=== PATIENT | male | born 1955 | race Caucasian/White ===

== ENCOUNTER 2018-12-30 11:15 | Emergency (ER) | payer MEDICARE, OTHER ==
[~2018-12-30] VITALS: Ht 177.8 cm; Wt 65.8 kg
--- NOTE | 2018-12-30 11:36 | ED Neurological Problem ---
General Stated Complaint: SUICIDAL IDEATION Source: patient Exam Limitations: no limitations History of Present Illness Date Seen by Provider: Dec 30, 2018 Time Seen by Provider: 11:34 Initial Comments To ER with reports that he is suicidal. She relates this to being homeless. He was living in [place], he moved here to be away from "those temptations. He is been clean from amphetamines and opiates for 2 months. States he plans to overdose. Timing/Duration: increasing Severity: moderate Associated Symptoms: other (suicidal) Allergies and Home Medications Patient Home Medication List Home Medication List Reviewed: Yes Review of Systems Review of Systems Constitutional: see HPI Eyes: No Symptoms Reported Ears, Nose, Mouth, Throat: no symptoms reported Respiratory: no symptoms reported Cardiovascular: no symptoms reported Genitourinary: no symptoms reported Musculoskeletal: no symptoms reported Skin: no symptoms reported Psychiatric/Neurological: See HPI Physical Exam Vital Signs Vital Signs - First Documented 12/30/18 11:15 Temp 97.8 Pulse 93 Resp 20 B/P (MAP) 148/100 (116) Pulse Ox 100 O2 Delivery Room Air Capillary Refill : Height, Weight, BMI Height: '" Weight: lbs. oz. kg; BMI Method: General Appearance: WD/WN, no apparent distress HEENT: PERRL/EOMI, normal ENT inspection Respiratory: no respiratory distress, no accessory muscle use Cardiovascular: regular rate, rhythm, no murmur Gastrointestinal: normal bowel sounds, non tender, soft Neurologic/Psychiatric: alert, normal mood/affect, oriented x 3 Crainal Nerves: normal hearing, normal speech, PERRL Skin: normal color, warm/dry Progress/Results/Core Measures Results/Orders Lab Results Laboratory Tests Test 12/30/18 11:50 12/30/18 11:57 Range/Units Urine Color YELLOW Urine Clarity CLEAR Urine pH 5 5-9 Urine Specific [place] 1.020 1.016-1.022 Urine Protein NEGATIVE NEGATIVE Urine Glucose (UA) NEGATIVE NEGATIVE Urine Ketones NEGATIVE NEGATIVE Urine Nitrite NEGATIVE NEGATIVE Urine Bilirubin NEGATIVE NEGATIVE Urine Urobilinogen NORMAL NORMAL MG/DL Urine Leukocyte Esterase NEGATIVE NEGATIVE Urine RBC (Auto) NEGATIVE NEGATIVE Urine RBC NONE /HPF Urine WBC NONE /HPF Urine Squamous Epithelial Cells RARE /HPF Urine Crystals NONE /LPF Urine Bacteria NEGATIVE /HPF Urine Casts NONE /LPF Urine Mucus MODERATE H /LPF Urine Culture Indicated NO Urine Opiates Screen NEGATIVE NEGATIVE Urine Oxycodone Screen NEGATIVE NEGATIVE Urine Methadone Screen NEGATIVE NEGATIVE Urine Propoxyphene Screen NEGATIVE NEGATIVE Urine Barbiturates Screen NEGATIVE NEGATIVE Ur Tricyclic Antidepressants Screen NEGATIVE NEGATIVE Urine Phencyclidine Screen NEGATIVE NEGATIVE Urine Amphetamines Screen NEGATIVE NEGATIVE Urine Methamphetamines Screen NEGATIVE NEGATIVE Urine Benzodiazepines Screen NEGATIVE NEGATIVE Urine Cocaine Screen NEGATIVE NEGATIVE Urine Cannabinoids Screen NEGATIVE NEGATIVE White Blood Count 4.6 4.3-11.0 10^3/uL Red Blood Count 4.82 4.35-5.85 10^6/uL Hemoglobin 14.9 13.3-17.7 G/DL Hematocrit 43 40-54 % Mean Corpuscular Volume 89 80-99 FL Mean Corpuscular Hemoglobin 31 25-34 PG Mean Corpuscular Hemoglobin Concent 35 32-36 G/DL Red Cell Distribution Width 12.8 10.0-14.5 % Platelet Count 239 130-400 10^3/uL Mean Platelet Volume 10.7 H 7.4-10.4 FL Neutrophils (%) (Auto) 59 42-75 % Lymphocytes (%) (Auto) 29 12-44 % Monocytes (%) (Auto) 10 0-12 % Eosinophils (%) (Auto) 2 0-10 % Basophils (%) (Auto) 1 0-10 % Neutrophils # (Auto) 2.7 1.8-7.8 X 10^3 Lymphocytes # (Auto) 1.3 1.0-4.0 X 10^3 Monocytes # (Auto) 0.5 0.0-1.0 X 10^3 Eosinophils # (Auto) 0.1 0.0-0.3 10^3/uL Basophils # (Auto) 0.0 0.0-0.1 10^3/uL Sodium Level 133 L 135-145 MMOL/L Potassium Level 4.4 3.6-5.0 MMOL/L Chloride Level 102 98-107 MMOL/L Carbon Dioxide Level 22 21-32 MMOL/L Anion Gap 9 5-14 MMOL/L Blood Urea Nitrogen 13 7-18 MG/DL Creatinine 0.99 0.60-1.30 MG/DL Estimat Glomerular Filtration Rate > 60 BUN/Creatinine Ratio 13 Glucose Level 116 H 70-105 MG/DL Calcium Level 9.1 8.5-10.1 MG/DL Corrected Calcium 8.9 8.5-10.1 MG/DL Total Bilirubin 0.4 0.1-1.0 MG/DL Aspartate Amino Transf (AST/SGOT) 11 5-34 U/L Alanine Aminotransferase (ALT/SGPT) 10 0-55 U/L Alkaline Phosphatase 92 40-136 U/L Total Protein 6.9 6.4-8.2 GM/DL Albumin 4.3 3.2-4.5 GM/DL Salicylates Level < 5.0 L 5.0-20.0 MG/DL Acetaminophen Level < 10 L 10-30 UG/ML Serum Alcohol < 10 <10 MG/DL My Orders Orders - YESY TREVIZO APRN Cbc With Automated Diff (12/30/18 11:29) Comprehensive Metabolic Panel (12/30/18 11:29) Ua Culture If Indicated (12/30/18 11:29) Drug Screen Stat (Urine) (12/30/18 11:29) Ekg Tracing (12/30/18 11:29) Alcohol (12/30/18 11:29) Salicylate (12/30/18 11:29) Acetaminophen (12/30/18 11:29) Vital Signs/I&O 12/30/18 11:15 Temp 97.8 Pulse 93 Resp 20 B/P (MAP) 148/100 (116) Pulse Ox 100 O2 Delivery Room Air Departure Communication (Admissions) 1314-Yoav barnes from [facility] here to screen patient. Impression Primary Impression: Suicidal ideations Disposition: 01 HOME, SELF-CARE Condition: Stable YESY TREVIZO APRN Dec 30, 2018 11:36
[2018-12-30 11:56] LABS: BILIRUBIN,URINE NEGATIVE (NEGATIVE); CLARITY,URINE CLEAR; COLOR,URINE YELLOW; GLUCOSE, URINE (UA) NEGATIVE (NEGATIVE); KETONES,URINE NEGATIVE (NEGATIVE); LEUKOCYTE ESTERASE ,URINE NEGATIVE (NEGATIVE); NITRITE,URINE NEGATIVE (NEGATIVE); PH,URINE 5 (5-9); PROTEIN,URINE NEGATIVE (NEGATIVE); UROBILINOGEN,URINE NORMAL (NORMAL)
[2018-12-30 12:05] LABS: BASOPHILS % (AUTO) 1 % (0-10); EOSINOPHILS # (AUTO) 0.1 10^3/uL (0.0-0.3); EOSINOPHILS % (AUTO) 2 % (0-10); HEMATOCRIT 43 % (40-54); HEMOGLOBIN 14.9 G/DL (13.3-17.7); LYMPHOCYTES # (AUTO) 1.3 X 10^3 (1.0-4.0); LYMPHOCYTES % (AUTO) 29 % (12-44); MEAN CORPUSCULAR HEMOGLOBIN 31 PG (25-34); MEAN CORPUSCULAR HGB CONC 35 G/DL (32-36); MEAN CORPUSCULAR VOLUME 89 FL (80-99); MEAN PLATELET VOLUME 10.7 FL (7.4-10.4); MONOCYTES # (AUTO) 0.5 X 10^3 (0.0-1.0); MONOCYTES % (AUTO) 10 % (0-12); NEUTROPHILS # (AUTO) 2.7 X 10^3 (1.8-7.8); NEUTROPHILS % (AUTO) 59 % (42-75); PLATELET COUNT 239 10^3/uL (130-400); RED CELL DISTRIBUTION WIDTH 12.8 % (10.0-14.5); WHITE BLOOD COUNT 4.6 10^3/uL (4.3-11.0)
[2018-12-30 12:08] LABS: AMPHETAMINE SCREEN, URINE NEGATIVE (NEGATIVE); BARBITURATE SCREEN URINE NEGATIVE (NEGATIVE); BENZODIAZEPINES SCREEN URINE NEGATIVE (NEGATIVE); CANNABINOID SCREEN, URINE NEGATIVE (NEGATIVE); COCAINE SCREEN URINE NEGATIVE (NEGATIVE); METHADONE STAT NEGATIVE (NEGATIVE); METHAMPHETAMINE SCREEN URINE S NEGATIVE (NEGATIVE); OPIATE SCREEN URINE NEGATIVE (NEGATIVE); OXYCODONE STAT NEGATIVE (NEGATIVE); PROPOXYPHENE STAT NEGATIVE (NEGATIVE); TRICYCLIC ANTIDEPRESSANTS SCRE NEGATIVE (NEGATIVE)
[2018-12-30 12:14] LABS: BACTERIA,URINE NEGATIVE /HPF; SQUAMOUS EPITHELIAL CELL,UR RARE /HPF
[2018-12-30 12:27] LABS: ALANINE AMINOTRANSFERASE 10 U/L (0-55); ALBUMIN 4.3 GM/DL (3.2-4.5); ALKALINE PHOSPHATASE 92 U/L (40-136); BILIRUBIN,TOTAL 0.4 MG/DL (0.1-1.0); BUN/CREATININE RATIO 13; CALCIUM 9.1 MG/DL (8.5-10.1); CARBON DIOXIDE 22 MMOL/L (21-32); CHLORIDE 102 MMOL/L (98-107); CREATININE SERUM 0.99 MG/DL (0.60-1.30); GFR ESTIMATED > 60; GLUCOSE 116 MG/DL (70-105); POTASSIUM 4.4 MMOL/L (3.6-5.0); SALICYLATE < 5.0 MG/DL (5.0-20.0); SODIUM 133 MMOL/L (135-145); TOTAL PROTEIN 6.9 GM/DL (6.4-8.2)
[2018-12-30 12:28] LABS: ACETAMINOPHEN < 10 UG/ML (10-30)
--- NOTE | 2018-12-30 12:53 | NUR ---
Screener showed up to screen patient
--- NOTE | 2018-12-30 14:51 | NUR ---
pts vs bp 117/67 P 68 R 20 T 97.8 P 3/10
--- NOTE | 2018-12-30 14:56 | NUR ---
gave pt lunch tray. Pt requested his phone, provider states that was fine. Gave pt phone.
[2018-12-30 15:38] VITALS: BP 122/86
== END 2018-12-30 15:37 ==
LOC: EDUNIT# 11:15 → ER 11:16
DX: R45.851 Suicidal ideations (principal)
CPT/HCPCS: 36415; 80053; 80306; 80320; 80329; 81000; 85025; 93005

== ENCOUNTER 2019-01-04 11:50 | Emergency (ER) | payer MEDICARE ==
[~2019-01-04] VITALS: Ht 177.8 cm; Wt 68.0 kg
--- NOTE | 2019-01-04 12:09 | ED Psychosocial ---
General Chief Complaint: Psych/Social Disorder Stated Complaint: DEPRESSION Source: patient Exam Limitations: no limitations History of Present Illness Date Seen by Provider: Jan 04, 2019 Time Seen by Provider: 12:07 Initial Comments To ER per produced with reports of suicidal. He was seen here on the , transferred to [facility] unit. He states that they did nothing for him other than continue the Wellbutrin and the lithium that he had stopped himself about 2 weeks prior. States he was discharged from there on Saturday the which she felt was too soon. Presents today with recurrence of suicidal thoughts, states he suicidal because he feels like a failure. [place] was [place], moves [place] and then recently moved back here. 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 Timing/Duration: constant, getting worse Severity: moderate Allergies and Home Medications Allergies Coded Allergies: No Known Drug Allergies (Unverified , 01/04/19) Patient Home Medication List Home Medication List Reviewed: Yes Review of Systems Constitutional: see HPI EENTM: see HPI Respiratory: no symptoms reported Cardiovascular: no symptoms reported Genitourinary: no symptoms reported Musculoskeletal: no symptoms reported Skin: no symptoms reported Psychiatric/Neurological: See HPI, Depressed Past Xczcmwb-Ualxwr-Rmgyga Hx Patient Social History Type Used: Cigarettes Recent Foreign Travel: No Contact w/Someone Who Travel: No Past Medical History Psychosocial: Yes Sleep Difficulties, Bipolar, Depression Physical Exam Vital Signs - First Documented 01/04/19 11:50 Temp 97.7 Pulse 88 Resp 16 B/P (MAP) 149/88 (108) Pulse Ox 100 O2 Delivery Room Air Capillary Refill : Height, Weight, BMI Height: 5'10.00" Weight: 145lbs. oz. [id number]; BMI Method:Stated General Appearance: WD/WN, no apparent distress Respiratory: normal breath sounds, no respiratory distress, no accessory muscle use Cardiovascular: regular rate, rhythm, no murmur Gastrointestinal: normal bowel sounds, non tender, soft Neurologic/Psychiatric: alert, normal mood/affect, oriented x 3 Appearance/Memory: appropriate appearance, appropriate insight Behavior/Eye Contact: cooperative, good eye contact Skin: normal color, warm/dry He is clean, pleasant, cooperative and appreciative. Progress/Results/Core Measures Results/Orders Lab Results Laboratory Tests Test 01/04/19 12:03 01/04/19 12:30 Range/Units Urine Color YELLOW Urine Clarity SLIGHTLY CLOUDY Urine pH 5 5-9 Urine Specific [place] 1.025 H 1.016-1.022 Urine Protein 2+ H NEGATIVE Urine Glucose (UA) NEGATIVE NEGATIVE Urine Ketones 2+ H NEGATIVE Urine Nitrite NEGATIVE NEGATIVE Urine Bilirubin NEGATIVE NEGATIVE Urine Urobilinogen NORMAL NORMAL MG/DL Urine Leukocyte Esterase 1+ H NEGATIVE Urine RBC (Auto) 5+ H NEGATIVE Urine RBC NONE /HPF Urine WBC 5-10 H /HPF Urine Crystals NONE /LPF Urine Bacteria MODERATE H /HPF Urine Casts NONE /LPF Urine Mucus MODERATE H /LPF Urine Culture Indicated YES Urine Opiates Screen NEGATIVE NEGATIVE Urine Oxycodone Screen NEGATIVE NEGATIVE Urine Methadone Screen NEGATIVE NEGATIVE Urine Propoxyphene Screen NEGATIVE NEGATIVE Urine Barbiturates Screen NEGATIVE NEGATIVE Ur Tricyclic Antidepressants Screen NEGATIVE NEGATIVE Urine Phencyclidine Screen NEGATIVE NEGATIVE Urine Amphetamines Screen NEGATIVE NEGATIVE Urine Methamphetamines Screen NEGATIVE NEGATIVE Urine Benzodiazepines Screen NEGATIVE NEGATIVE Urine Cocaine Screen NEGATIVE NEGATIVE Urine Cannabinoids Screen NEGATIVE NEGATIVE White Blood Count 7.9 4.3-11.0 10^3/uL Red Blood Count 5.09 4.35-5.85 10^6/uL Hemoglobin 15.6 13.3-17.7 G/DL Hematocrit 45 40-54 % Mean Corpuscular Volume 87 80-99 FL Mean Corpuscular Hemoglobin 31 25-34 PG Mean Corpuscular Hemoglobin Concent 35 32-36 G/DL Red Cell Distribution Width 13.0 10.0-14.5 % Platelet Count 268 130-400 10^3/uL Mean Platelet Volume 10.4 7.4-10.4 FL Neutrophils (%) (Auto) 62 42-75 % Lymphocytes (%) (Auto) 26 12-44 % Monocytes (%) (Auto) 10 0-12 % Eosinophils (%) (Auto) 2 0-10 % Basophils (%) (Auto) 1 0-10 % Neutrophils # (Auto) 4.9 1.8-7.8 X 10^3 Lymphocytes # (Auto) 2.0 1.0-4.0 X 10^3 Monocytes # (Auto) 0.8 0.0-1.0 X 10^3 Eosinophils # (Auto) 0.2 0.0-0.3 10^3/uL Basophils # (Auto) 0.1 0.0-0.1 10^3/uL Sodium Level 137 135-145 MMOL/L Potassium Level 4.2 3.6-5.0 MMOL/L Chloride Level 105 98-107 MMOL/L Carbon Dioxide Level 19 L 21-32 MMOL/L Anion Gap 13 5-14 MMOL/L Blood Urea Nitrogen 21 H 7-18 MG/DL Creatinine 1.00 0.60-1.30 MG/DL Estimat Glomerular Filtration Rate > 60 BUN/Creatinine Ratio 21 Glucose Level 102 70-105 MG/DL Calcium Level 9.2 8.5-10.1 MG/DL Corrected Calcium 8.9 8.5-10.1 MG/DL Total Bilirubin 0.8 0.1-1.0 MG/DL Aspartate Amino Transf (AST/SGOT) 16 5-34 U/L Alanine Aminotransferase (ALT/SGPT) 11 0-55 U/L Alkaline Phosphatase 102 40-136 U/L Total Protein 7.0 6.4-8.2 GM/DL Albumin 4.4 3.2-4.5 GM/DL Salicylates Level < 5.0 L 5.0-20.0 MG/DL Acetaminophen Level < 10 L 10-30 UG/ML Serum Alcohol < 10 <10 MG/DL My Orders Orders - YESY TREVIZO APRN Cbc With Automated Diff (01/04/19 12:01) Comprehensive Metabolic Panel (01/04/19 12:01) Ua Culture If Indicated (01/04/19 12:01) Alcohol (01/04/19 12:01) Ekg Tracing (01/04/19 12:01) Drug Screen Stat (Urine) (01/04/19 12:01) Acetaminophen (01/04/19 12:01) Salicylate (01/04/19 12:01) General/Regular (01/04/19 Lunch) Urine Culture (01/04/19 12:03) Vital Signs/I&O 01/04/19 11:50 Temp 97.7 Pulse 88 Resp 16 B/P (MAP) 149/88 (108) Pulse Ox 100 O2 Delivery Room Air Departure Communication (Admissions) [id number] [facility]--no beds [facility]--no beds [facility] beds [facility]no beds [facility] could transport pt to [facility] in [place], a homeless skilled nursing. Pt is not interested [facility] in has no beds. [facility] has no beds in . [facility] in has no beds. [facility] has no beds. [facility] in [facility] has beds will fax info to them at [phone] 1448-[facility] has accepted pt. RN called back to inform that physician had accepted. They do not require me to give report to him/her. They do require RN to call whe hes left here however. Pt agreeable to go and informed that he would be self pay when he got there due to being out of medicare days. Pt is still agreeable to go, this does not change his plan. Impression Primary Impression: Suicidal ideations Disposition: 65 XFER TO PSYCH HOSP/UNIT Condition: Stable Departure-Patient Inst. Decision time for Depature: 13:22 Referrals: NO,LOCAL PHYSICIAN (PCP/Family) Primary Care Physician Patient Instructions: Depression YESY TREVIZO APRN Jan 04, 2019 12:09
[2019-01-04 12:15] LABS: BILIRUBIN,URINE NEGATIVE (NEGATIVE); CLARITY,URINE SLIGHTLY CLOUDY; COLOR,URINE YELLOW; GLUCOSE, URINE (UA) NEGATIVE (NEGATIVE); KETONES,URINE 2+ (NEGATIVE); LEUKOCYTE ESTERASE ,URINE 1+ (NEGATIVE); NITRITE,URINE NEGATIVE (NEGATIVE); PH,URINE 5 (5-9); PROTEIN,URINE 2+ (NEGATIVE); UROBILINOGEN,URINE NORMAL (NORMAL)
[2019-01-04 12:48] LABS: BACTERIA,URINE MODERATE /HPF
--- NOTE | 2019-01-04 12:50 | NUR ---
diet ordered at this time
[2019-01-04 12:55] LABS: BASOPHILS # (AUTO) 0.1 10^3/uL (0.0-0.1); BASOPHILS % (AUTO) 1 % (0-10); EOSINOPHILS # (AUTO) 0.2 10^3/uL (0.0-0.3); EOSINOPHILS % (AUTO) 2 % (0-10); HEMATOCRIT 45 % (40-54); HEMOGLOBIN 15.6 G/DL (13.3-17.7); LYMPHOCYTES % (AUTO) 26 % (12-44); MEAN CORPUSCULAR HEMOGLOBIN 31 PG (25-34); MEAN CORPUSCULAR HGB CONC 35 G/DL (32-36); MEAN CORPUSCULAR VOLUME 87 FL (80-99); MEAN PLATELET VOLUME 10.4 FL (7.4-10.4); MONOCYTES # (AUTO) 0.8 X 10^3 (0.0-1.0); MONOCYTES % (AUTO) 10 % (0-12); NEUTROPHILS # (AUTO) 4.9 X 10^3 (1.8-7.8); NEUTROPHILS % (AUTO) 62 % (42-75); PLATELET COUNT 268 10^3/uL (130-400); WHITE BLOOD COUNT 7.9 10^3/uL (4.3-11.0)
[2019-01-04 13:18] LABS: AMPHETAMINE SCREEN, URINE NEGATIVE (NEGATIVE); BARBITURATE SCREEN URINE NEGATIVE (NEGATIVE); BENZODIAZEPINES SCREEN URINE NEGATIVE (NEGATIVE); CANNABINOID SCREEN, URINE NEGATIVE (NEGATIVE); COCAINE SCREEN URINE NEGATIVE (NEGATIVE); METHADONE STAT NEGATIVE (NEGATIVE); METHAMPHETAMINE SCREEN URINE S NEGATIVE (NEGATIVE); OPIATE SCREEN URINE NEGATIVE (NEGATIVE); OXYCODONE STAT NEGATIVE (NEGATIVE); PROPOXYPHENE STAT NEGATIVE (NEGATIVE); TRICYCLIC ANTIDEPRESSANTS SCRE NEGATIVE (NEGATIVE)
[2019-01-04 13:18] LABS: ALANINE AMINOTRANSFERASE 11 U/L (0-55); ALBUMIN 4.4 GM/DL (3.2-4.5); ALKALINE PHOSPHATASE 102 U/L (40-136); BILIRUBIN,TOTAL 0.8 MG/DL (0.1-1.0); BUN/CREATININE RATIO 21; CALCIUM 9.2 MG/DL (8.5-10.1); CARBON DIOXIDE 19 MMOL/L (21-32); CHLORIDE 105 MMOL/L (98-107); GFR ESTIMATED > 60; GLUCOSE 102 MG/DL (70-105); POTASSIUM 4.2 MMOL/L (3.6-5.0); SALICYLATE < 5.0 MG/DL (5.0-20.0); SODIUM 137 MMOL/L (135-145)
[2019-01-04 13:21] LABS: ACETAMINOPHEN < 10 UG/ML (10-30)
[2019-01-04 15:25] VITALS: BP 149/88
--- NOTE | 2019-01-04 15:28 | NUR ---
Report given to Janie at [facility].
== END 2019-01-04 15:25 ==
LOC: EDUNIT# 11:50 → ER 11:50
DX: R45.851 Suicidal ideations (principal); F31.9 Bipolar disorder, unspecified
CPT/HCPCS: 36415; 80053; 80306; 80320; 80329; 81000; 85025; 87088; 93005

== ENCOUNTER 2019-01-22 05:15 | Emergency (ER) | payer MEDICARE ==
[~2019-01-22] VITALS: Ht 177.8 cm; Wt 68.0 kg
[2019-01-22 05:57] LABS: BILIRUBIN,URINE NEGATIVE (NEGATIVE); CLARITY,URINE CLEAR; COLOR,URINE YELLOW; GLUCOSE, URINE (UA) NEGATIVE (NEGATIVE); KETONES,URINE NEGATIVE (NEGATIVE); LEUKOCYTE ESTERASE ,URINE NEGATIVE (NEGATIVE); NITRITE,URINE NEGATIVE (NEGATIVE); PH,URINE 7 (5-9); PROTEIN,URINE NEGATIVE (NEGATIVE); UROBILINOGEN,URINE NORMAL (NORMAL)
[2019-01-22 05:57] LABS: BASOPHILS % (AUTO) 1 % (0-10); EOSINOPHILS # (AUTO) 0.3 10^3/uL (0.0-0.3); EOSINOPHILS % (AUTO) 5 % (0-10); HEMATOCRIT 43 % (40-54); LYMPHOCYTES # (AUTO) 2.5 X 10^3 (1.0-4.0); LYMPHOCYTES % (AUTO) 41 % (12-44); MEAN CORPUSCULAR HEMOGLOBIN 30 PG (25-34); MEAN CORPUSCULAR HGB CONC 35 G/DL (32-36); MEAN CORPUSCULAR VOLUME 87 FL (80-99); MEAN PLATELET VOLUME 10.5 FL (7.4-10.4); MONOCYTES # (AUTO) 0.7 X 10^3 (0.0-1.0); MONOCYTES % (AUTO) 11 % (0-12); NEUTROPHILS # (AUTO) 2.6 X 10^3 (1.8-7.8); NEUTROPHILS % (AUTO) 42 % (42-75); PLATELET COUNT 296 10^3/uL (130-400); RED CELL DISTRIBUTION WIDTH 13.8 % (10.0-14.5); WHITE BLOOD COUNT 6.3 10^3/uL (4.3-11.0)
[2019-01-22 06:09] LABS: BACTERIA,URINE NEGATIVE /HPF; SQUAMOUS EPITHELIAL CELL,UR RARE /HPF
[2019-01-22 06:19] LABS: AMPHETAMINE SCREEN, URINE NEGATIVE (NEGATIVE); BARBITURATE SCREEN URINE NEGATIVE (NEGATIVE); BENZODIAZEPINES SCREEN URINE NEGATIVE (NEGATIVE); CANNABINOID SCREEN, URINE NEGATIVE (NEGATIVE); COCAINE SCREEN URINE NEGATIVE (NEGATIVE); METHADONE STAT NEGATIVE (NEGATIVE); METHAMPHETAMINE SCREEN URINE S NEGATIVE (NEGATIVE); OPIATE SCREEN URINE NEGATIVE (NEGATIVE); OXYCODONE STAT NEGATIVE (NEGATIVE); PROPOXYPHENE STAT NEGATIVE (NEGATIVE); TRICYCLIC ANTIDEPRESSANTS SCRE NEGATIVE (NEGATIVE)
[2019-01-22 06:30] LABS: ALANINE AMINOTRANSFERASE 10 U/L (0-55); ALBUMIN 4.2 GM/DL (3.2-4.5); ALKALINE PHOSPHATASE 84 U/L (40-136); BILIRUBIN,TOTAL 0.5 MG/DL (0.1-1.0); BUN/CREATININE RATIO 11; CALCIUM 9.2 MG/DL (8.5-10.1); CARBON DIOXIDE 21 MMOL/L (21-32); CHLORIDE 108 MMOL/L (98-107); CREATININE SERUM 0.81 MG/DL (0.60-1.30); GFR ESTIMATED > 60; GLUCOSE 104 MG/DL (70-105); POTASSIUM 3.9 MMOL/L (3.6-5.0); SALICYLATE < 5.0 MG/DL (5.0-20.0); SODIUM 141 MMOL/L (135-145); TOTAL PROTEIN 6.8 GM/DL (6.4-8.2)
[2019-01-22 06:33] LABS: ACETAMINOPHEN < 10 UG/ML (10-30)
--- NOTE | 2019-01-22 06:46 | ED Psychosocial ---
General Chief Complaint: Psych/Social Disorder Stated Complaint: SUICIDAL,WANTS TO HARM SELF Nursing Triage Note: STATES FEELS LIKE A FAILURE AND DOESNT WANT TO GO ON. Source: patient Exam Limitations: no limitations History of Present Illness Date Seen by Provider: Jan 22, 2019 Time Seen by Provider: 05:49 Initial Comments This 63 year old man presents to the ER with complaints of suicidal ideation. He has a history of depression, anxiety, and substance abuse. He reports no use of alcohol or drugs in the past 6 months. He was seen at this facility December 30 and admitted to the [facility] behavioral health unit in [place], [place]. He returned to this facility January 04 stating nothing was really done for him in [place] except restarting his medications. On January 04 he was transferred to [facility] in [place], [place]. Patient was treated there and dismissed. Since he left [place] he has not been compliant with his medications. He has access to them but has elected not to take them. He cannot give a good reason for why he chooses to do so. He is living in [facility] presently and states he temporarily has financial resources to support this. At present he states he feels hopeless, and laminated, and alone. He feels like a failure and therefore is having suicidal thoughts. He has been established with [facility] and states he is dissatisfied with the services he receives there. He states he does not get any one-on-one consultation. When asked what he would do today if he were discharged from the hospital, he states "I would probably call one of the heroin girls". Patient states he has been contacted by acquaintances who have access to heroin. He was invited to meet back up with them but declined. Although he had an opportunity to access heroin, he elected not to. His plan in relation to suicidal ideation would be heroin overdose. He states he elected not to connect with these acquaintances because he has a daughter who lives in [place] and he does not want to end his life in this fashion and have the impact on her. His current medications are lithium and Wellbutrin. He took one dose of those yesterday which was the first time he had taken his medications since he lapsed in his medication therapy over the past week. Allergies and Home Medications Allergies Coded Allergies: No Known Drug Allergies (Unverified , 01/04/19) Patient Home Medication List Home Medication List Reviewed: Yes Review of Systems Constitutional: no symptoms reported EENTM: no symptoms reported Respiratory: no symptoms reported Cardiovascular: no symptoms reported Gastrointestinal: no symptoms reported Genitourinary: no symptoms reported Musculoskeletal: no symptoms reported Skin: no symptoms reported Psychiatric/Neurological: See HPI Past Riwsull-Ddqlqb-Iinyai Hx Past Med/Social Hx: Reviewed Nursing Past Med/Soc Hx Patient Social History Alcohol Use: Denies Use Recreational Drug Use: Yes ("I USED TO SMOKE HEROIN AND METH") Drug of Choice: 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 Type Used: Cigarettes Recent Foreign Travel: No Contact w/Someone Who Travel: No Recent Infectious Disease Expo: No Recent Hopitalizations: No ([facility]NA FOR PSYCH) Physical Abuse: No Sexual Abuse: No Mistreated: No Fear: No Seasonal Allergies Seasonal Allergies: Yes Past Medical History Surgeries: Yes Prostatectomy Respiratory: No Cardiac: No Neurological: No Genitourinary: Yes Prostate Problems Gastrointestinal: No (INGUINAL HERNIA) Musculoskeletal: No Endocrine: No HEENT: No Cancer: No Psychosocial: Yes ("BIPOLAR TYPE 2, SCHIZOID NO DILUSIONS") Sleep Difficulties, Anxiety, Bipolar, Depression Nursing Suicide Risk Notes: SISTER HAS SHUNNED HIM. FEELS LIKE A FAILURE AND DOENST WANT TO GO ON. HAS NOT BEEN TAKING MEDICATIONS REGULARLY. Integumentary: No Blood Disorders: No Physical Exam Vital Signs - First Documented 01/22/19 05:30 Temp 36.4 Pulse 64 Resp 18 B/P (MAP) 123/81 (95) Pulse Ox 98 Capillary Refill : Less Than 3 Seconds Height, Weight, BMI Height: 5'10.00" Weight: 150lbs. oz. [id number]; 21.00 BMI Method:Stated General Appearance: WD/WN, no apparent distress HEENT: PERRL/EOMI, normal ENT inspection, pharynx normal Neck: normal inspection Respiratory: lungs clear, normal breath sounds, no respiratory distress Cardiovascular: regular rate, rhythm, no edema, no murmur Gastrointestinal: normal bowel sounds, non tender, soft Extremities: normal inspection, no pedal edema Neurologic/Psychiatric: manager clinical services II-XII nml as tested, no motor/sensory deficits, alert, oriented x 3, other (normal affect, states suicidal ideation) Appearance/Memory: appropriate appearance Behavior/Eye Contact: cooperative, good eye contact, normal speech Skin: normal color, warm/dry Progress/Results/Core Measures Results/Orders Lab Results Laboratory Tests Test 01/22/19 05:29 01/22/19 05:40 Range/Units Urine Color YELLOW Urine Clarity CLEAR Urine pH 7 5-9 Urine Specific [place] 1.010 L 1.016-1.022 Urine Protein NEGATIVE NEGATIVE Urine Glucose (UA) NEGATIVE NEGATIVE Urine Ketones NEGATIVE NEGATIVE Urine Nitrite NEGATIVE NEGATIVE Urine Bilirubin NEGATIVE NEGATIVE Urine Urobilinogen NORMAL NORMAL MG/DL Urine Leukocyte Esterase NEGATIVE NEGATIVE Urine RBC (Auto) NEGATIVE NEGATIVE Urine RBC NONE /HPF Urine WBC NONE /HPF Urine Squamous Epithelial Cells RARE /HPF Urine Crystals NONE /LPF Urine Bacteria NEGATIVE /HPF Urine Casts NONE /LPF Urine Mucus NEGATIVE /LPF Urine Culture Indicated NO Urine Opiates Screen NEGATIVE NEGATIVE Urine Oxycodone Screen NEGATIVE NEGATIVE Urine Methadone Screen NEGATIVE NEGATIVE Urine Propoxyphene Screen NEGATIVE NEGATIVE Urine Barbiturates Screen NEGATIVE NEGATIVE Ur Tricyclic Antidepressants Screen NEGATIVE NEGATIVE Urine Phencyclidine Screen NEGATIVE NEGATIVE Urine Amphetamines Screen NEGATIVE NEGATIVE Urine Methamphetamines Screen NEGATIVE NEGATIVE Urine Benzodiazepines Screen NEGATIVE NEGATIVE Urine Cocaine Screen NEGATIVE NEGATIVE Urine Cannabinoids Screen NEGATIVE NEGATIVE White Blood Count 6.3 4.3-11.0 10^3/uL Red Blood Count 4.95 4.35-5.85 10^6/uL Hemoglobin 15.0 13.3-17.7 G/DL Hematocrit 43 40-54 % Mean Corpuscular Volume 87 80-99 FL Mean Corpuscular Hemoglobin 30 25-34 PG Mean Corpuscular Hemoglobin Concent 35 32-36 G/DL Red Cell Distribution Width 13.8 10.0-14.5 % Platelet Count 296 130-400 10^3/uL Mean Platelet Volume 10.5 H 7.4-10.4 FL Neutrophils (%) (Auto) 42 42-75 % Lymphocytes (%) (Auto) 41 12-44 % Monocytes (%) (Auto) 11 0-12 % Eosinophils (%) (Auto) 5 0-10 % Basophils (%) (Auto) 1 0-10 % Neutrophils # (Auto) 2.6 1.8-7.8 X 10^3 Lymphocytes # (Auto) 2.5 1.0-4.0 X 10^3 Monocytes # (Auto) 0.7 0.0-1.0 X 10^3 Eosinophils # (Auto) 0.3 0.0-0.3 10^3/uL Basophils # (Auto) 0.0 0.0-0.1 10^3/uL Sodium Level 141 135-145 MMOL/L Potassium Level 3.9 3.6-5.0 MMOL/L Chloride Level 108 H 98-107 MMOL/L Carbon Dioxide Level 21 21-32 MMOL/L Anion Gap 12 5-14 MMOL/L Blood Urea Nitrogen 9 7-18 MG/DL Creatinine 0.81 0.60-1.30 MG/DL Estimat Glomerular Filtration Rate > 60 BUN/Creatinine Ratio 11 Glucose Level 104 70-105 MG/DL Calcium Level 9.2 8.5-10.1 MG/DL Corrected Calcium 9.0 8.5-10.1 MG/DL Total Bilirubin 0.5 0.1-1.0 MG/DL Aspartate Amino Transf (AST/SGOT) 17 5-34 U/L Alanine Aminotransferase (ALT/SGPT) 10 0-55 U/L Alkaline Phosphatase 84 40-136 U/L Total Protein 6.8 6.4-8.2 GM/DL Albumin 4.2 3.2-4.5 GM/DL TSH Mcclelland Testing 2.11 0.35-4.94 UIU/ML Salicylates Level < 5.0 L 5.0-20.0 MG/DL Acetaminophen Level < 10 L 10-30 UG/ML Serum Alcohol < 10 <10 MG/DL My Orders Orders - HE BUTTS MD [place] Level (01/22/19 06:26) General/Regular (01/22/19 Breakfast) Vital Signs/I&O 01/22/19 01/22/19 05:30 11:03 Temp 36.4 36.4 Pulse 64 64 Resp 18 18 B/P (MAP) 123/81 (95) 123/81 (95) Pulse Ox 98 98 Blood Pressure Mean: 95 Progress Progress Note #1: Time: 07:00 Progress Note Lab screening was unremarkable. Patient appears to be manipulative of the behavioral health system in that he makes demands, does not follow through with recommendations were refuses services, is noncompliant with his medications, and then complains that his offered services are in adequate. I discussed the case with Willa, the [facility] screener. She will defer further discussion to Param Alvarez. Given patient's history and noncompliance, I'm not sure another inpatient admission would be the most productive therapy option for him. I will discuss this further with Mr. Alvarez when he returns my call and obtain his expert opinion. Progress Note #2: Time: 07:37 Progress Note I discussed the case with Param Alvarez with [facility]. We had developed a plan for intensive outpatient follow-up to try to boost patients out patient services. Inpatient admission was not felt the best option for this patient as he has failed inpatient admission twice in the past month and much of his problem is refusal to be compliant with treatment plans. Mr. Alvarez's plan was to have family independence case manager work with the patient to develop a more suitable treatment plan. However, when I discussed this plan with the patient, he stated he intended to commit suicide by overdose today if he were discharged. He reported he can probably accomplish this within 2 hours. He asserts he needs to be admitted somewhere with security for his safety. Progress Note #3: Time: 07:53 Progress Note Have discussed this case with Dr. Rosario and the screener at [facility]. They will review his chart and make a determination on his eligibility. Progress Note #4: Time: 08:35 Progress Note The [facility] unit declined admission. They're familiar with the patient, and they do not believe there facility is the best resource for him. They suggested an adult psychiatric unit due to history of substance abuse and manipulative behavior rather than a senior behavioral health unit. I have left messages at [facility] in [place] and [facility] in [place]. Departure Impression Primary Impression: Suicidal ideation Disposition: 02 XFER SHT-TRM HOSP Condition: Stable Transfer Transfer Progress Notes Patient was transported to [facility] Dr. Germain was the accepting physician. Transfer Time: 11:05 Transfer Facility: [facility] in [place], [place] Method of Transfer: Departure-Patient Inst. Referrals: NO,LOCAL PHYSICIAN (PCP/Family) Primary Care Physician HE BUTTS MD Jan 22, 2019 06:46
[2019-01-22 06:57] LABS: TSH (THYROID ANALYZER) 2.11 UIU/ML (0.35-4.94)
--- NOTE | 2019-01-22 07:30 | NUR ---
HAD ARRANGED CLOSE OUTPATIENT CARE FOR PT, PT STATES WILL GO HOME AND OVERDOSE IF HE IS SENT HOME
--- NOTE | 2019-01-22 08:01 | NUR ---
CHART FAXED TO [facility] REQUESTED
--- NOTE | 2019-01-22 08:39 | NUR ---
PT INFORMATION FAXED TO [facility]
--- NOTE | 2019-01-22 09:23 | NUR ---
[facility]ILIP[facility] WILL TRANSPORT PT TO [place]
--- NOTE | 2019-01-22 10:00 | NUR ---
REPORT TO BOAZ HERNANDEZ AT [facility]
[2019-01-22 11:03] VITALS: BP 123/81
== END 2019-01-22 11:03 ==
LOC: EDUNIT# 05:15 → ER 05:17
DX: R45.851 Suicidal ideations (principal); F32.9 Major depressive disorder, single episode, unspecified; F41.9 Anxiety disorder, unspecified; F20.9 Schizophrenia, unspecified
CPT/HCPCS: 36415; 80053; 80178; 80306; 80320; 80329; 81000; 84443; 85025; 93005

== ENCOUNTER 2019-02-19 14:58 | Emergency (ER) | payer MEDICARE ==
[~2019-02-19] VITALS: Ht 177.8 cm; Wt 68.0 kg
--- NOTE | 2019-02-19 15:48 | ED Psychosocial ---
General Chief Complaint: Psych/Social Disorder Stated Complaint: DEPRESSION Nursing Triage Note: States that he has been depressed, paranoid, and anxious for the last 2 months, and increasing due to influences of others and their narcotic use. Does have thoughts of self harm and does have a plan to carry it out. Has been trying to reestablish with [facility] but has been unable at this point Source: patient Exam Limitations: no limitations History of Present Illness Date Seen by Provider: Feb 19, 2019 Time Seen by Provider: 15:30 Initial Comments The patient presents to ER by private conveyance with chief complaint of depression worsening over the past 2-3 weeks. He says is having a hard time battling it. He saw Dr. lima at [facility] and was started on lithium very paranoid about his has not started taking it. He has a history of depression and suicidal ideation. Presently he is having suicidal ideation with plan to overdose on heroin. He would like to go inpatient. He has been inpatient psych at [place], [place] before. He has not done anything to attempt to take his own life today. He says there is no specific instigating incident. He recently moved to the area to be called to the family in the past 2 years. He says he last used methamphetamines 6 months ago and heroin recently. Used to smoke pot regularly. He does still smoke cigarettes 1 pack a day. He denies having any pain shortness of breath nausea vomiting fevers chills cough shortness of breath diarrhea or constipation. Allergies and Home Medications Allergies Coded Allergies: No Known Drug Allergies (Unverified , 01/04/19) Patient Home Medication List Home Medication List Reviewed: Yes Review of Systems Constitutional: No chills, No fever, No malaise EENTM: No ear discharge, No hearing loss Respiratory: No cough, No dyspnea on exertion Cardiovascular: No chest pain, No palpitations Gastrointestinal: No abdominal pain, No nausea Genitourinary: No discharge, No dysuria Musculoskeletal: No back pain, No gout Past Oaeygxo-Oiedtw-Bignfv Hx Patient Social History Alcohol Use: Denies Use Recreational Drug Use: Yes Drug of Choice: 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; Heroin, MJ Smoking Status: Current Everyday Smoker Type Used: Cigarettes (1 ppd) 2nd Hand Smoke Exposure: No Recent Foreign Travel: No Contact w/Someone Who Travel: No Recent Infectious Disease Expo: No Recent Hopitalizations: No (REENA FOR PSYCH) Seasonal Allergies Seasonal Allergies: Yes Past Medical History Surgeries: Yes Prostatectomy Respiratory: No Cardiac: No Neurological: No Genitourinary: Yes Prostate Problems Gastrointestinal: No (INGUINAL HERNIA) Musculoskeletal: No Endocrine: No HEENT: No Cancer: No Psychosocial: Yes ("BIPOLAR TYPE 2, SCHIZOID NO DILUSIONS") Sleep Difficulties, Anxiety, Bipolar, Depression Integumentary: No Blood Disorders: No Physical Exam Vital Signs - First Documented 02/19/19 15:11 Temp 37.0 Pulse 77 Resp 16 B/P (MAP) 129/76 (93) Pulse Ox 97 Capillary Refill : Less Than 3 Seconds Height, Weight, BMI Height: 5'10.00" Weight: 150lbs. oz. [id number]; 21.00 BMI Method:Stated General Appearance: WD/WN, no apparent distress HEENT: PERRL/EOMI, pharynx normal Neck: non-tender, full range of motion, normal inspection Respiratory: chest non-tender, lungs clear, normal breath sounds, no respiratory distress, no accessory muscle use Cardiovascular: normal peripheral pulses, regular rate, rhythm, no edema Peripheral Pulses: 2+ Radial Pulses (R), 2+ Radial Pulses (L) Gastrointestinal: normal bowel sounds, non tender, soft Neurologic/Psychiatric: alert, normal mood/affect, oriented x 3 Appearance/Memory: appropriate appearance, appropriate insight, no memory impai rment Behavior/Eye Contact: cooperative, good eye contact, normal speech Thoughts/Hallucinations: no apparent hallucination, paranoid (mildly), other (suicidal ideation with plan to OD) Skin: normal color, warm/dry Progress/Results/Core Measures Results/Orders Lab Results Laboratory Tests Test 02/19/19 15:58 02/19/19 16:20 02/19/19 16:46 Range/Units Urine Color YELLOW Urine Clarity CLEAR Urine pH 5 5-9 Urine Specific [place] 1.020 1.016-1.022 Urine Protein 1+ H NEGATIVE Urine Glucose (UA) NEGATIVE NEGATIVE Urine Ketones NEGATIVE NEGATIVE Urine Nitrite NEGATIVE NEGATIVE Urine Bilirubin NEGATIVE NEGATIVE Urine Urobilinogen NORMAL NORMAL MG/DL Urine Leukocyte Esterase NEGATIVE NEGATIVE Urine RBC (Auto) NEGATIVE NEGATIVE Urine RBC NONE /HPF Urine WBC 5-10 H /HPF Urine Crystals NONE /LPF Urine Bacteria NEGATIVE /HPF Urine Casts NONE /LPF Urine Mucus SMALL H /LPF Urine Culture Indicated NO Urine Opiates Screen NEGATIVE NEGATIVE Urine Oxycodone Screen NEGATIVE NEGATIVE Urine Methadone Screen NEGATIVE NEGATIVE Urine Propoxyphene Screen NEGATIVE NEGATIVE Urine Barbiturates Screen NEGATIVE NEGATIVE Ur Tricyclic Antidepressants Screen NEGATIVE NEGATIVE Urine Phencyclidine Screen NEGATIVE NEGATIVE Urine Amphetamines Screen NEGATIVE NEGATIVE Urine Methamphetamines Screen NEGATIVE NEGATIVE Urine Benzodiazepines Screen NEGATIVE NEGATIVE Urine Cocaine Screen NEGATIVE NEGATIVE Urine Cannabinoids Screen NEGATIVE NEGATIVE White Blood Count 5.8 4.3-11.0 10^3/uL Red Blood Count 4.26 L 4.35-5.85 10^6/uL Hemoglobin 13.4 13.3-17.7 G/DL Hematocrit 38 L 40-54 % Mean Corpuscular Volume 89 80-99 FL Mean Corpuscular Hemoglobin 32 25-34 PG Mean Corpuscular Hemoglobin Concent 35 32-36 G/DL Red Cell Distribution Width 13.4 10.0-14.5 % Platelet Count 258 130-400 10^3/uL Mean Platelet Volume 10.2 7.4-10.4 FL Neutrophils (%) (Auto) 53 42-75 % Lymphocytes (%) (Auto) 33 12-44 % Monocytes (%) (Auto) 10 0-12 % Eosinophils (%) (Auto) 3 0-10 % Basophils (%) (Auto) 1 0-10 % Neutrophils # (Auto) 3.0 1.8-7.8 X 10^3 Lymphocytes # (Auto) 1.9 1.0-4.0 X 10^3 Monocytes # (Auto) 0.6 0.0-1.0 X 10^3 Eosinophils # (Auto) 0.2 0.0-0.3 10^3/uL Basophils # (Auto) 0.1 0.0-0.1 10^3/uL Sodium Level 135 135-145 MMOL/L Potassium Level 3.9 3.6-5.0 MMOL/L Chloride Level 105 98-107 MMOL/L Carbon Dioxide Level 24 21-32 MMOL/L Anion Gap 6 5-14 MMOL/L Blood Urea Nitrogen 11 7-18 MG/DL Creatinine 0.84 0.60-1.30 MG/DL Estimat Glomerular Filtration Rate > 60 BUN/Creatinine Ratio 13 Glucose Level 100 70-105 MG/DL Calcium Level 8.5 8.5-10.1 MG/DL Corrected Calcium 8.7 8.5-10.1 MG/DL Total Bilirubin 0.6 0.1-1.0 MG/DL Aspartate Amino Transf (AST/SGOT) 12 5-34 U/L Alanine Aminotransferase (ALT/SGPT) 11 0-55 U/L Alkaline Phosphatase 82 40-136 U/L Total Protein 6.2 L 6.4-8.2 GM/DL Albumin 3.8 3.2-4.5 GM/DL Salicylates Level < 5.0 L 5.0-20.0 MG/DL Acetaminophen Level < 10 L 10-30 UG/ML Serum Alcohol < 10 <10 MG/DL My Orders Orders - TORI MORALES Ua Culture If Indicated (02/19/19 15:40) Cbc With Automated Diff (02/19/19 15:40) Comprehensive Metabolic Panel (02/19/19 15:40) Alcohol (02/19/19 15:40) Drug Screen Stat (Urine) (02/19/19 15:40) Acetaminophen (02/19/19 15:40) Salicylate (02/19/19 15:40) Ekg Tracing (02/19/19 15:40) Bh Status Checks/Observation Q15M (02/19/19 15:40) Ceftriaxone For Iv Use (Rocephin For I (02/19/19 16:45) Syphilis Antibody Screen (02/19/19 16:34) Neis Roberto Dna Urine Test (02/19/19 16:34) Chlamydia Trachomatis Urine (02/19/19 16:34) Azithromycin Tablet (Zithromax Tablet) (02/19/19 16:45) Ceftriaxone For Im Use (Rocephin For Im (02/19/19 17:00) Lidocaine 1% Inj 20 Ml (Xylocaine 1% Inj (02/19/19 17:00) General/Regular (02/19/19 Dinner) Medications Given in ED Current Medications Medications Dose Ordered Sig/Christopher Route Start Time Stop Time Status Last Admin Dose Admin Azithromycin 1,000 mg ONCE ONCE PO 02/19/19 16:45 02/19/19 16:46 DC 02/19/19 17:17 1,000 MG Ceftriaxone Sodium 1,000 mg ONCE ONCE IM 02/19/19 17:00 02/19/19 17:01 DC 02/19/19 17:17 1,000 MG Lidocaine HCl 2.1 ml ONCE ONCE INJ 02/19/19 17:00 02/19/19 17:01 DC 02/19/19 17:17 2.1 ML Vital Signs/I&O 02/19/19 15:11 Temp 37.0 Pulse 77 Resp 16 B/P (MAP) 129/76 (93) Pulse Ox 97 Blood Pressure Mean: 93 Progress Progress Note #1: Time: 15:47 Progress Note Psych workup. In the first urine was lost in the lab. We will encourage by mouth fluids. Progress Note #2: Time: 16:35 Progress Note Moderate pyuria. We will treat him with Rocephin and azithromycin. He can finish up some Keflex outpatient for another 5 days for possible UTI. We discussed STD testing and prevention and he would like us to go ahead and check so we have ordered syphilis antibodies, and gonorrhea/chlamydia off the urine. Progress Note #3: Time: 16:51 Progress Note [facility] has no beds available and several ER waiting. Left voicemail with [facility]. Angela says of it and faxed information to them they will review. Progress Note #4: Time: 17:48 Progress Note Discussed the case with the accepting team at [facility] and they said they will accept him but he was just discharged on 10 February and did not participate with group or therapy. They also said that this is the same s tory he gave then and they strongly suspect he is malingering. Initial ECG Impression Date: Feb 19, 2019 Initial ECG Impression Time: 17:15 Initial ECG Rate: 66 Initial ECG Rhythm: Normal Sinus Initial ECG Intervals: Normal Initial ECG Impression: Normal Comment Normal sinus rhythm without ST elevation or depression. Departure Impression Primary Impression: Suicidal ideation Additional Impression: UTI (urinary tract infection) Qualified Codes: N30.00 - Acute cystitis without hematuria Disposition: 65 XFER TO PSYCH HOSP/UNIT Condition: Stable Transfer Time Spoke to Accepting Phy: 17:45 Transfer Progress Notes [facility] accepted the patient. Caren Parada plans to arrive between [id number] to transport the patient. Transfer Facility: [facility]. [place]. Method of Transfer: Private Vehicle Departure-Patient Inst. Referrals: NO,LOCAL PHYSICIAN (PCP/Family) Primary Care Physician TORI MORALES Feb 19, 2019 15:48
[2019-02-19 16:02] LABS: BILIRUBIN,URINE NEGATIVE (NEGATIVE); CLARITY,URINE CLEAR; COLOR,URINE YELLOW; GLUCOSE, URINE (UA) NEGATIVE (NEGATIVE); KETONES,URINE NEGATIVE (NEGATIVE); LEUKOCYTE ESTERASE ,URINE NEGATIVE (NEGATIVE); NITRITE,URINE NEGATIVE (NEGATIVE); PH,URINE 5 (5-9); PROTEIN,URINE 1+ (NEGATIVE); UROBILINOGEN,URINE NORMAL (NORMAL)
[2019-02-19 16:21] LABS: BACTERIA,URINE NEGATIVE /HPF
[2019-02-19 16:24] LABS: BASOPHILS # (AUTO) 0.1 10^3/uL (0.0-0.1); BASOPHILS % (AUTO) 1 % (0-10); EOSINOPHILS # (AUTO) 0.2 10^3/uL (0.0-0.3); EOSINOPHILS % (AUTO) 3 % (0-10); HEMATOCRIT 38 % (40-54); HEMOGLOBIN 13.4 G/DL (13.3-17.7); LYMPHOCYTES # (AUTO) 1.9 X 10^3 (1.0-4.0); LYMPHOCYTES % (AUTO) 33 % (12-44); MEAN CORPUSCULAR HEMOGLOBIN 32 PG (25-34); MEAN CORPUSCULAR HGB CONC 35 G/DL (32-36); MEAN CORPUSCULAR VOLUME 89 FL (80-99); MEAN PLATELET VOLUME 10.2 FL (7.4-10.4); MONOCYTES # (AUTO) 0.6 X 10^3 (0.0-1.0); MONOCYTES % (AUTO) 10 % (0-12); NEUTROPHILS % (AUTO) 53 % (42-75); PLATELET COUNT 258 10^3/uL (130-400); RED CELL DISTRIBUTION WIDTH 13.4 % (10.0-14.5); WHITE BLOOD COUNT 5.8 10^3/uL (4.3-11.0)
[2019-02-19 16:41] LABS: AMPHETAMINE SCREEN, URINE NEGATIVE (NEGATIVE); BARBITURATE SCREEN URINE NEGATIVE (NEGATIVE); BENZODIAZEPINES SCREEN URINE NEGATIVE (NEGATIVE); CANNABINOID SCREEN, URINE NEGATIVE (NEGATIVE); COCAINE SCREEN URINE NEGATIVE (NEGATIVE); METHADONE STAT NEGATIVE (NEGATIVE); METHAMPHETAMINE SCREEN URINE S NEGATIVE (NEGATIVE); OPIATE SCREEN URINE NEGATIVE (NEGATIVE); OXYCODONE STAT NEGATIVE (NEGATIVE); PROPOXYPHENE STAT NEGATIVE (NEGATIVE); TRICYCLIC ANTIDEPRESSANTS SCRE NEGATIVE (NEGATIVE)
[2019-02-19 16:44] LABS: ALANINE AMINOTRANSFERASE 11 U/L (0-55); ALBUMIN 3.8 GM/DL (3.2-4.5); ALKALINE PHOSPHATASE 82 U/L (40-136); BILIRUBIN,TOTAL 0.6 MG/DL (0.1-1.0); BUN/CREATININE RATIO 13; CALCIUM 8.5 MG/DL (8.5-10.1); CARBON DIOXIDE 24 MMOL/L (21-32); CHLORIDE 105 MMOL/L (98-107); CREATININE SERUM 0.84 MG/DL (0.60-1.30); GFR ESTIMATED > 60; GLUCOSE 100 MG/DL (70-105); POTASSIUM 3.9 MMOL/L (3.6-5.0); SALICYLATE < 5.0 MG/DL (5.0-20.0); SODIUM 135 MMOL/L (135-145); TOTAL PROTEIN 6.2 GM/DL (6.4-8.2)
[2019-02-19] MEDS ORDERED: AZITHROMYCIN 250 MG TAB (ZITHROMAX) PO ONE (16:45)
[2019-02-19] MEDS ORDERED: cefTRIAXone FOR IV USE 1,000 MG in WATER (STERILE) FOR INJECTION 10 ML IV ONE (16:45)
[2019-02-19 16:48] LABS: ACETAMINOPHEN < 10 UG/ML (10-30)
[2019-02-19] MEDS ORDERED: LIDOCAINE 1% INJ 20 ML 20 ML VIAL INJ ONE (17:00)
[2019-02-19] MEDS ORDERED: cefTRIAXone 1,000 MG/2.86 ml vial (IM ONLY) IM ONE (17:00)
[2019-02-19 19:37] VITALS: BP 120/71
--- NOTE | 2019-02-19 19:45 | NUR ---
Report to Angela called
== END 2019-02-19 19:39 ==
LOC: EDUNIT# 14:58 → ER 14:59
DX: R45.851 Suicidal ideations (principal); N39.0 Urinary tract infection, site not specified; F31.9 Bipolar disorder, unspecified; F41.9 Anxiety disorder, unspecified; F17.210 Nicotine dependence, cigarettes, uncomplicated; Z98.890 Other specified postprocedural states
CPT/HCPCS: 36415; 80053; 80306; 80320; 80329; 81000; 85025; 86780; 87491; 87591; 93005; 96372

== ENCOUNTER 2019-03-01 05:43 | Emergency (ER) | payer MEDICARE ==
[~2019-03-01] VITALS: Ht 177 cm; Wt 68.0 kg
--- NOTE | 2019-03-01 07:09 | ED Neurological Problem ---
General Stated Complaint: DEPRESSION Source: patient Exam Limitations: no limitations History of Present Illness Date Seen by Provider: Mar 01, 2019 Time Seen by Provider: 07:05 Initial Comments A 63-year-old white male was brought to the emergency department with suicidal ideation. Patient was recently hospitalized at the [facility] for psych care. He has run out of his psych medications. The patient has had significant suicidal ideation and states that he has a definite plan. Patient denies associated fever, chills, productive cough, chest pain or palpitations, nausea vomiting or diarrhea, headache or stiff neck, or actual harm to self. Allergies and Home Medications Allergies Coded Allergies: No Known Drug Allergies (Unverified , 01/04/19) Home Medications No Active Prescriptions or Reported Meds Patient Home Medication List Home Medication List Reviewed: Yes Review of Systems Review of Systems Constitutional: No chills Eyes: Denies Blurred Vision Ears, Nose, Mouth, Throat: denies ear pain Respiratory: No cough Cardiovascular: No chest pain Gastrointestinal: No abdominal pain, No nausea Genitourinary: no symptoms reported Musculoskeletal: no symptoms reported Skin: no symptoms reported Psychiatric/Neurological: See HPI, Depressed, Other (active suicidal ideation.) Endocrine: No Symptoms Reported Hematologic/Lymphatic: No Symptoms Reported Past Khotzip-Lghavv-Ttnajy Hx Past Med/Social Hx: Reviewed Nursing Past Med/Soc Hx Patient Social History Drug of Choice: 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; Heroin, MJ Type Used: Cigarettes 2nd Hand Smoke Exposure: No Recent Foreign Travel: No Contact w/Someone Who Travel: No Recent Hopitalizations: No (REENA FOR PSYCH) Seasonal Allergies Seasonal Allergies: Yes Past Medical History Surgeries: Yes Prostatectomy Respiratory: No Cardiac: No Neurological: No Genitourinary: Yes Prostate Problems Gastrointestinal: No (INGUINAL HERNIA) Musculoskeletal: No Endocrine: No HEENT: No Cancer: No Psychosocial: Yes ("BIPOLAR TYPE 2, SCHIZOID NO DILUSIONS") Sleep Difficulties, Anxiety, Bipolar, Depression Integumentary: No Blood Disorders: No Physical Exam Vital Signs Vital Signs - First Documented 03/01/19 06:48 Temp 35.9 Pulse 78 Resp 18 B/P (MAP) 124/83 (97) Pulse Ox 98 Capillary Refill : Height, Weight, BMI Height: 5'10.00" Weight: 150lbs. oz. [id number]; 21.00 BMI Method:Stated General Appearance: WD/WN, other (depressed) HEENT: normal ENT inspection Neck: full range of motion, supple Respiratory: lungs clear Cardiovascular: regular rate, rhythm Gastrointestinal: normal bowel sounds, soft Back: normal inspection Extremities: normal range of motion Neurologic/Psychiatric: no motor/sensory deficits, alert, depressed affect Crainal Nerves: normal hearing, normal speech Coordination/Gait: normal gait Motor/Sensory: no motor deficit, no sensory deficit Skin: normal color, warm/dry Progress/Results/Core Measures Results/Orders Lab Results Laboratory Tests Test 03/01/19 07:11 03/01/19 07:12 Range/Units Urine Opiates Screen NEGATIVE NEGATIVE Urine Oxycodone Screen NEGATIVE NEGATIVE Urine Methadone Screen NEGATIVE NEGATIVE Urine Propoxyphene Screen NEGATIVE NEGATIVE Urine Barbiturates Screen NEGATIVE NEGATIVE Ur Tricyclic Antidepressants Screen NEGATIVE NEGATIVE Urine Phencyclidine Screen NEGATIVE NEGATIVE Urine Amphetamines Screen NEGATIVE NEGATIVE Urine Methamphetamines Screen NEGATIVE NEGATIVE Urine Benzodiazepines Screen NEGATIVE NEGATIVE Urine Cocaine Screen NEGATIVE NEGATIVE Urine Cannabinoids Screen NEGATIVE NEGATIVE White Blood Count 6.9 4.3-11.0 10^3/uL Red Blood Count 4.89 4.35-5.85 10^6/uL Hemoglobin 15.1 13.3-17.7 G/DL Hematocrit 44 40-54 % Mean Corpuscular Volume 90 80-99 FL Mean Corpuscular Hemoglobin 31 25-34 PG Mean Corpuscular Hemoglobin Concent 34 32-36 G/DL Red Cell Distribution Width 14.5 10.0-14.5 % Platelet Count 247 130-400 10^3/uL Mean Platelet Volume 10.4 7.4-10.4 FL Neutrophils (%) (Auto) 48 42-75 % Lymphocytes (%) (Auto) 35 12-44 % Monocytes (%) (Auto) 10 0-12 % Eosinophils (%) (Auto) 7 0-10 % Basophils (%) (Auto) 1 0-10 % Neutrophils # (Auto) 3.3 1.8-7.8 X 10^3 Lymphocytes # (Auto) 2.4 1.0-4.0 X 10^3 Monocytes # (Auto) 0.7 0.0-1.0 X 10^3 Eosinophils # (Auto) 0.5 H 0.0-0.3 10^3/uL Basophils # (Auto) 0.1 0.0-0.1 10^3/uL Sodium Level 136 135-145 MMOL/L Potassium Level 4.8 3.6-5.0 MMOL/L Chloride Level 102 98-107 MMOL/L Carbon Dioxide Level 22 21-32 MMOL/L Anion Gap 12 5-14 MMOL/L Blood Urea Nitrogen 14 7-18 MG/DL Creatinine 0.95 0.60-1.30 MG/DL Estimat Glomerular Filtration Rate > 60 BUN/Creatinine Ratio 15 Glucose Level 106 H 70-105 MG/DL Calcium Level 9.2 8.5-10.1 MG/DL Corrected Calcium 9.0 8.5-10.1 MG/DL Total Bilirubin 0.3 0.1-1.0 MG/DL Aspartate Amino Transf (AST/SGOT) 18 5-34 U/L Alanine Aminotransferase (ALT/SGPT) 20 0-55 U/L Alkaline Phosphatase 99 40-136 U/L Total Protein 7.0 6.4-8.2 GM/DL Albumin 4.3 3.2-4.5 GM/DL Salicylates Level < 5.0 L 5.0-20.0 MG/DL Acetaminophen Level < 10 L 10-30 UG/ML Serum Alcohol < 10 <10 MG/DL My Orders Orders - ADNREW BUCK MD Cbc With Automated Diff (03/01/19 07:00) Comprehensive Metabolic Panel (03/01/19 07:00) Salicylate (03/01/19 07:00) Acetaminophen (03/01/19 07:00) Alcohol (03/01/19 07:00) Drug Screen Stat (Urine) (03/01/19 07:00) Ekg Tracing (03/01/19 07:11) General/Regular (03/01/19 Breakfast) General/Regular (03/01/19 Lunch) Vital Signs/I&O 03/01/19 03/01/19 06:48 11:14 Temp 35.9 35.9 Pulse 78 78 Resp 18 18 B/P (MAP) 124/83 (97) 124/83 (97) Pulse Ox 98 98 Progress Progress Note : Time: 18:55 Progress Note The patient was transferred to [facility] for further psych care. Departure Impression Primary Impression: Depression Qualified Codes: F33.2 - Major depressive disorder, recurrent severe without psychotic features Additional Impression: Suicidal ideation Disposition: XFER SHT-TRM HOSP Condition: Unchanged Departure-Patient Inst. Referrals: NO,LOCAL PHYSICIAN (PCP/Family) Primary Care Physician Scripts No Active Prescriptions or Reported Meds ANDREW BUCK MD Mar 01, 2019 07:09
[2019-03-01 07:25] LABS: BASOPHILS # (AUTO) 0.1 10^3/uL (0.0-0.1); BASOPHILS % (AUTO) 1 % (0-10); EOSINOPHILS # (AUTO) 0.5 10^3/uL (0.0-0.3); EOSINOPHILS % (AUTO) 7 % (0-10); HEMATOCRIT 44 % (40-54); HEMOGLOBIN 15.1 G/DL (13.3-17.7); LYMPHOCYTES # (AUTO) 2.4 X 10^3 (1.0-4.0); LYMPHOCYTES % (AUTO) 35 % (12-44); MEAN CORPUSCULAR HEMOGLOBIN 31 PG (25-34); MEAN CORPUSCULAR HGB CONC 34 G/DL (32-36); MEAN CORPUSCULAR VOLUME 90 FL (80-99); MEAN PLATELET VOLUME 10.4 FL (7.4-10.4); MONOCYTES # (AUTO) 0.7 X 10^3 (0.0-1.0); MONOCYTES % (AUTO) 10 % (0-12); NEUTROPHILS # (AUTO) 3.3 X 10^3 (1.8-7.8); NEUTROPHILS % (AUTO) 48 % (42-75); PLATELET COUNT 247 10^3/uL (130-400); RED CELL DISTRIBUTION WIDTH 14.5 % (10.0-14.5); WHITE BLOOD COUNT 6.9 10^3/uL (4.3-11.0)
[2019-03-01 07:30] LABS: AMPHETAMINE SCREEN, URINE NEGATIVE (NEGATIVE); BARBITURATE SCREEN URINE NEGATIVE (NEGATIVE); BENZODIAZEPINES SCREEN URINE NEGATIVE (NEGATIVE); CANNABINOID SCREEN, URINE NEGATIVE (NEGATIVE); COCAINE SCREEN URINE NEGATIVE (NEGATIVE); METHADONE STAT NEGATIVE (NEGATIVE); METHAMPHETAMINE SCREEN URINE S NEGATIVE (NEGATIVE); OPIATE SCREEN URINE NEGATIVE (NEGATIVE); OXYCODONE STAT NEGATIVE (NEGATIVE); PROPOXYPHENE STAT NEGATIVE (NEGATIVE); TRICYCLIC ANTIDEPRESSANTS SCRE NEGATIVE (NEGATIVE)
[2019-03-01 07:46] LABS: ACETAMINOPHEN < 10 UG/ML (10-30); ALANINE AMINOTRANSFERASE 20 U/L (0-55); ALBUMIN 4.3 GM/DL (3.2-4.5); ALKALINE PHOSPHATASE 99 U/L (40-136); BILIRUBIN,TOTAL 0.3 MG/DL (0.1-1.0); BUN/CREATININE RATIO 15; CALCIUM 9.2 MG/DL (8.5-10.1); CARBON DIOXIDE 22 MMOL/L (21-32); CHLORIDE 102 MMOL/L (98-107); CREATININE SERUM 0.95 MG/DL (0.60-1.30); GFR ESTIMATED > 60; GLUCOSE 106 MG/DL (70-105); POTASSIUM 4.8 MMOL/L (3.6-5.0); SALICYLATE < 5.0 MG/DL (5.0-20.0); SODIUM 136 MMOL/L (135-145)
--- NOTE | 2019-03-01 08:50 | NUR ---
FAXED [facility]IAL ASSESSMENT, FACE SHEET AND LAB RESULTS
--- NOTE | 2019-03-01 09:35 | NUR ---
[facility] ACCEPTED PT, PHONE REPORT CALLED TO KVNG HERNANDEZ
--- NOTE | 2019-03-01 09:40 | NUR ---
[facility] CALLED FOR POSSIBLE TRANSPORTATION
--- NOTE | 2019-03-01 09:51 | NUR ---
REG DIET ORDERED
[2019-03-01 11:14] VITALS: BP 124/83
== END 2019-03-01 11:00 ==
LOC: EDUNIT# 05:43 → ER 05:44
DX: F32.9 Major depressive disorder, single episode, unspecified (principal); R45.851 Suicidal ideations; F41.9 Anxiety disorder, unspecified; F31.9 Bipolar disorder, unspecified; Z98.890 Other specified postprocedural states
CPT/HCPCS: 36415; 80053; 80306; 80320; 80329; 85025; 93005

== ENCOUNTER 2019-06-02 11:51 | Emergency (ER) | payer MEDICARE ==
[~2019-06-02] VITALS: Ht 177 cm; Wt 77.2 kg
[2019-06-02] MEDS ORDERED: FLUT16SP22 (12:03)
--- NOTE | 2019-06-02 12:20 | NUR ---
Upon taking pt to room, pt reports additional symptoms. Pt reports being sober from smoking meth for 8 months. Pt is "fearful I have done some damage to my lungs and have caused lung cancer." Pt reports hoarse voice and severe fatigue. Pt also reports hx of anxiety and feeling anxious at this time.
[2019-06-02] MEDS ORDERED: hydrOXYzine (VISTARIL/ATARAX) 25 MG capsule/tablet PO ONE (13:00)
--- NOTE | 2019-06-02 13:05 | ED General ---
General Chief Complaint: Dizziness/Syncope Stated Complaint: DIZZINESS Nursing Triage Note: VERTIGO X5 DAYS. Nursing Sepsis Screen: No Definite Risk Source of Information: Patient Exam Limitations: No Limitations History of Present Illness Date Seen by Provider: Jun 02, 2019 Time Seen by Provider: 13:02 Initial Comments To ER with sore throat, vertigo upon standing for 2 months. He has a lot of anxiety, states that he used to smoke methamphetamine greater than 8 months ago and is afraid that he is done irreversible damage to himself. He also thinks he might be anemic. Timing/Duration: Other (months) Severity: Moderate Associated Systoms: Cough Allergies and Home Medications Allergies Coded Allergies: No Known Drug Allergies (Unverified , 01/04/19) Patient Home Medication List Home Medication List Reviewed: Yes Review of Systems Review of Systems Constitutional: see HPI, dizziness EENTM: see HPI Respiratory: no symptoms reported Cardiovascular: no symptoms reported Genitourinary: no symptoms reported Musculoskeletal: no symptoms reported Skin: no symptoms reported Psychiatric/Neurological: No Symptoms Reported Hematologic/Lymphatic: No Symptoms Reported Immunological/Allergic: no symptoms reported Past Updbywy-Qtjvdi-Obpgjn Hx Patient Social History Alcohol Use: Denies Use Recreational Drug Use: Yes (PAST HX OF SMOKING METH) Drug of Choice: 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; Heroin, MJ Smoking Status: Current Everyday Smoker Type Used: Cigarettes 2nd Hand Smoke Exposure: No Recent Foreign Travel: No Contact w/Someone Who Travel: No Recent Infectious Disease Expo: No Recent Hopitalizations: No Seasonal Allergies Seasonal Allergies: Yes Past Medical History Surgeries: Yes Prostatectomy Respiratory: No Cardiac: No Neurological: No Genitourinary: Yes Prostate Problems Gastrointestinal: No (INGUINAL HERNIA) Musculoskeletal: No Endocrine: No HEENT: No Cancer: No Psychosocial: Yes ("BIPOLAR TYPE 2, SCHIZOID NO DILUSIONS") Sleep Difficulties, Anxiety, Bipolar, Depression Integumentary: No Blood Disorders: No Physical Exam Vital Signs Vital Signs - First Documented 06/02/19 11:59 Temp 36.7 Pulse 82 Resp 16 B/P (MAP) 73/ Pulse Ox 98 O2 Delivery Room Air Capillary Refill : Less Than 3 Seconds Height, Weight, BMI Height: 5'10.00" Weight: 150lbs. oz. 68.845162pl; 24.00 BMI Method:Stated General Appearance: No Apparent Distress, WD/WN Eyes: Bilateral Eye Normal Inspection, Bilateral Eye PERRL, Bilateral Eye EOMI HEENT: PERRL/EOMI, TMs Normal Neck: Full Range of Motion, Normal Inspection Respiratory: Lungs Clear, Normal Breath Sounds, No Accessory Muscle Use, No Respiratory Distress Cardiovascular: Regular Rate, Rhythm, Normal Peripheral Pulses Gastrointestinal: Non Tender, Soft Extremity: Normal Capillary Refill, Normal Inspection Neurologic/Psychiatric: Alert, Oriented x3 Skin: Normal Color, Warm/Dry Progress/Results/Core Measures Suspected Sepsis Recent Fever Within 48 Hours: No Infection Criteria Present: None New/Unexplained Altered Menta: No Sepsis Screen: No Definite Risk SIRS Temperature: Pulse: 82 Respiratory Rate: 16 Laboratory Tests 06/02/19 13:00: White Blood Count 6.7 Blood Pressure 73 / Mean: Laboratory Tests 06/02/19 13:00: Creatinine 1.18, Platelet Count 253 Results/Orders Lab Results Laboratory Tests Test 06/02/19 13:00 Range/Units White Blood Count 6.7 4.3-11.0 10^3/uL Red Blood Count 5.23 4.35-5.85 10^6/uL Hemoglobin 15.9 13.3-17.7 G/DL Hematocrit 46 40-54 % Mean Corpuscular Volume 88 80-99 FL Mean Corpuscular Hemoglobin 30 25-34 PG Mean Corpuscular Hemoglobin Concent 35 32-36 G/DL Red Cell Distribution Width 13.5 10.0-14.5 % Platelet Count 253 130-400 10^3/uL Mean Platelet Volume 9.5 7.4-10.4 FL Neutrophils (%) (Auto) 63 42-75 % Lymphocytes (%) (Auto) 25 12-44 % Monocytes (%) (Auto) 7 0-12 % Eosinophils (%) (Auto) 4 0-10 % Basophils (%) (Auto) 1 0-10 % Neutrophils # (Auto) 4.3 1.8-7.8 X 10^3 Lymphocytes # (Auto) 1.7 1.0-4.0 X 10^3 Monocytes # (Auto) 0.5 0.0-1.0 X 10^3 Eosinophils # (Auto) 0.3 0.0-0.3 10^3/uL Basophils # (Auto) 0.1 0.0-0.1 10^3/uL Sodium Level 139 135-145 MMOL/L Potassium Level 4.2 3.6-5.0 MMOL/L Chloride Level 105 98-107 MMOL/L Carbon Dioxide Level 26 21-32 MMOL/L Anion Gap 8 5-14 MMOL/L Blood Urea Nitrogen 17 7-18 MG/DL Creatinine 1.18 0.60-1.30 MG/DL Estimat Glomerular Filtration Rate > 60 BUN/Creatinine Ratio 14 Glucose Level 105 70-105 MG/DL Calcium Level 9.2 8.5-10.1 MG/DL My Orders Orders - YESY TREVIZO APRN Chest Pa/Lat (2 View) (06/02/19 12:33) Cbc With Automated Diff (06/02/19 12:41) Basic Metabolic Panel (06/02/19 12:41) Hydroxyzine Cap/Tab (Vistaril) (06/02/19 13:00) Medications Given in ED Current Medications Medications Dose Ordered Sig/Christopher Route Start Time Stop Time Status Last Admin Dose Admin Hydroxyzine Pamoate 50 mg ONCE ONCE PO 06/02/19 13:00 06/02/19 13:01 DC 06/02/19 13:14 50 MG Vital Signs/I&O 06/02/19 11:59 Temp 36.7 Pulse 82 Resp 16 B/P (MAP) 73/ Pulse Ox 98 O2 Delivery Room Air Capillary Refill : Less Than 3 Seconds Departure Communication (Admissions) Dizziness has been present for 2 months, if he fails to improve with meclizine then he will need follow-up outpatient MRI to evaluate for a cerebellar lesion. There is no nystagmus, he is able to walk from the waiting room to room 5 steady gait and no use of assistive device. Further workup done outpatient. Impression Primary Impression: Vertigo Disposition: HOME, SELF-CARE Condition: Stable Departure-Patient Inst. Decision time for Depature: 13:04 Referrals: NO,LOCAL PHYSICIAN (PCP/Family) Primary Care Physician Patient Instructions: Vertigo (a Type of Dizziness) (DC) Add. Discharge Instructions: 1. Follow-up with your community health provider for any other nonemergent healthcare needs. Take the medicine for dizziness as needed, follow-up with health in the next week or 2. If symptoms fail to improve then he will need an MRI of the brain Scripts Meclizine HCl (Meclizine HCl) 25 Mg Tablet 25 MG PO TID PRN for DIZZINESS, #14 TAB Prov: YESY TREVIZO APRN 06/02/19 YESY TREVIZO APRN Jun 02, 2019 13:05
[2019-06-02 13:10] LABS: BASOPHILS # (AUTO) 0.1 10^3/uL (0.0-0.1); BASOPHILS % (AUTO) 1 % (0-10); EOSINOPHILS # (AUTO) 0.3 10^3/uL (0.0-0.3); EOSINOPHILS % (AUTO) 4 % (0-10); HEMATOCRIT 46 % (40-54); HEMOGLOBIN 15.9 G/DL (13.3-17.7); LYMPHOCYTES # (AUTO) 1.7 X 10^3 (1.0-4.0); LYMPHOCYTES % (AUTO) 25 % (12-44); MEAN CORPUSCULAR HEMOGLOBIN 30 PG (25-34); MEAN CORPUSCULAR HGB CONC 35 G/DL (32-36); MEAN CORPUSCULAR VOLUME 88 FL (80-99); MEAN PLATELET VOLUME 9.5 FL (7.4-10.4); MONOCYTES # (AUTO) 0.5 X 10^3 (0.0-1.0); MONOCYTES % (AUTO) 7 % (0-12); NEUTROPHILS # (AUTO) 4.3 X 10^3 (1.8-7.8); NEUTROPHILS % (AUTO) 63 % (42-75); PLATELET COUNT 253 10^3/uL (130-400); RED CELL DISTRIBUTION WIDTH 13.5 % (10.0-14.5); WHITE BLOOD COUNT 6.7 10^3/uL (4.3-11.0)
--- NOTE | 2019-06-02 13:12 | Diagnostic Imaging Report ---
INDICATION: Loss of balance, dizziness, hoarseness. FINDINGS: The lungs are clear. The heart and vessels are normal. There is no effusion or pneumothorax. The hilar and mediastinal contours are normal. IMPRESSION: No acute appearing abnormality. Dictated by: Dictated on workstation # [id number]
[2019-06-02 13:30] LABS: BUN/CREATININE RATIO 14; CALCIUM 9.2 MG/DL (8.5-10.1); CARBON DIOXIDE 26 MMOL/L (21-32); CHLORIDE 105 MMOL/L (98-107); CREATININE SERUM 1.18 MG/DL (0.60-1.30); GFR ESTIMATED > 60; GLUCOSE 105 MG/DL (70-105); POTASSIUM 4.2 MMOL/L (3.6-5.0); SODIUM 139 MMOL/L (135-145)
[2019-06-02] MEDS ORDERED: MECL-106 PO (13:42)
[2019-06-02 13:45] VITALS: BP 111/75
== END 2019-06-02 13:45 | disposition home or self-care (01) ==
LOC: EDUNIT# 11:51 → ER 11:52
DX: R42 Dizziness and giddiness (principal); F41.9 Anxiety disorder, unspecified; F31.9 Bipolar disorder, unspecified; F17.210 Nicotine dependence, cigarettes, uncomplicated
CPT/HCPCS: 36415; 71046; 80048; 85025

== ENCOUNTER 2019-10-05 20:57 | Emergency (ER) | payer MEDICARE ==
[~2019-10-05] VITALS: Ht 178 cm; Wt 77.2 kg
[2019-10-05 20:57] VITALS: BP 132/73
[~2019-10-05 20:57] MED LIST: FLUT16SP22; MECL-149 PO; OLANZapine 5 MG ODT (ZyPREXA ZYDIS) ONE
[2019-10-05] MEDS ORDERED: LTH450TCR (21:01)
[2019-10-05] MEDS ORDERED: BUPR300T98 (21:01)
--- OUTSIDE RECORDS SUMMARY | 2019-10-05 21:02 | XMS REPORT | Continuity of Care Document ---
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 LITHIUM LEVEL - 01/22/19 05:40 Blood lithium measurement (moles/volume) 0.2 % 0.5-1.5 Complete urinalysis with reflex to cultu re - 02/19/19 15:58 Urine color determination YELLOW NRG Urine clarity determination CLEAR NR G Urine pH measurement by test strip 5 5-9 Specific gravity of urine by test strip 1.020 1.016-1.022 Urine protein assay by test strip, semi-quantitative 1+ NEGATIVE Urine glucose detection by automated test strip NE GATIVE NEGATIVE Erythrocytes detection in urine sediment by light micr oscopy NEGATIVE NEGATIVE Urine ketones detection by automated test strip NE GATIVE NEGATIVE Urine nitrite detection by test strip NEGATIVE NEGATIVE Urine total bilirubin detection by test strip NEGA TIVE NEGATIVE Urine urobilinogen measurement by automated test strip (mass/volume) NORMAL NORMAL Urine leukocyte esterase detection by dipstick NEG ATIVE NEGATIVE Automated urine sediment erythrocyte cou nt by microscopy (number/high power field) NONE NRG Automated urine sediment leukocyte count by microscopy (number/high power field) [HPF] NRG Bacteria detection in urine sediment by light microsco py NEGATIVE NRG Crystals detection in urine sediment by light microsco py NONE NRG Casts detection in urine sediment by light microscopy NONE NRG Mucus detection in urine sediment by light microscopy SMALL NRG Complete urinalysis with reflex to culture NO NRG Urine drug screening test - 02/19/19 15: 58 Urine phencyclidine detection by screening method NEGATIVE NEGATIVE Urine benzodiazepines detection by screening method NEGATIVE NEGATIVE Urine cocaine detection NEGATIVE NEGATI VE Urine amphetamines detection by screening method N EGATIVE NEGATIVE Urine methamphetamine detection by screening method NEGATIVE NEGATIVE Urine cannabinoids detection by screening method N EGATIVE NEGATIVE Urine opiates detection by screening method NEGATI VE NEGATIVE Urine barbiturates detection NEGATIVE N EGATIVE Screening urine tricyclic antidepressants detection NEGATIVE NEGATIVE Urine methadone detection by screening method NEGA TIVE NEGATIVE Urine oxycodone detection NEGATIVE NEGA TIVE Urine propoxyphene detection NEGATIVE N EGATIVE Complete blood count (CBC) with automate d white blood cell (WBC) differential - 02/19/19 16:20 Blood leukocytes automated count (number/volume) 5.8 10*3/uL 4.3-11.0 Blood erythrocytes automated count (number/volume) 4.26 10*6/uL 4.35-5.85 Venous blood hemoglobin measurement (mass/volume) 13.4 g/dL 13.3-17.7 Blood hematocrit (volume fraction) 38 % 40-54 Automated erythrocyte mean corpuscular volume 89 [ foz_us] 80-99 Automated erythrocyte mean corpuscular h emoglobin (mass per erythrocyte) 32 pg 25-34 Automated erythrocyte mean corpuscular h emoglobin concentration measurement (mass/volume) 35 g/dL 32-36 Automated erythrocyte distribution width ratio 13. 4 % 10.0- 14.5 Automated blood platelet count (count/volume) 258 10*3/uL 130-400 Automated blood platelet mean volume measurement 10.2 [foz_us] 7.4-10.4 Automated blood neutrophils/100 leukocytes 53 % 42-75 Automated blood lymphocytes/100 leukocytes 33 % 12-44 Blood monocytes/100 leukocytes 10 % 0-12 Automated blood eosinophils/100 leukocytes 3 % 0-10 Automated blood basophils/100 leukocytes 1 % 0-10 Blood neutrophils automated count (number/volume) 3.0 10*3 1.8-7.8 Blood lymphocytes automated count (number/volume) 1.9 10*3 1.0-4.0 Blood monocytes automated count (number/volume) 0. 6 10*3 0.0-1.0 Automated eosinophil count 0.2 10*3/uL 0 .0-0.3 Automated blood basophil count (count/volume) 0.1 10*3/uL 0.0-0.1 Comprehensive metabolic panel - 02/19/19 16:20 Serum or plasma sodium measurement (moles/volume) 135 mmol/L 135-145 Serum or plasma potassium measurement (moles/volume) 3.9 mmol/L 3.6-5.0 Serum or plasma chloride measurement (moles/volume) 105 mmol/L 98-107 Carbon dioxide 24 mmol/L 21-32 Serum or plasma anion gap determination (moles/volume) 6 mmol/L 5-14 Serum or plasma urea nitrogen measurement (mass/volume ) 11 mg/dL 7-18 Serum or plasma creatinine measurement (mass/volume) 0.84 mg/dL 0.60-1.30 Serum or plasma urea nitrogen/creatinine mass ratio 13 NRG Serum or plasma creatinine measurement w ith calculation of estimated glomerular filtration rate > NRG Serum or plasma glucose measurement (mass/volume) 100 mg/dL 70-105 Serum or plasma calcium measurement (mass/volume) 8.5 mg/dL 8.5-10.1 Serum or plasma total bilirubin measurement (mass/volu me) 0.6 mg/dL 0.1-1.0 Serum or plasma alkaline phosphatase samson surement (enzymatic activity/volume) 82 U/L 40-136 Serum or plasma aspartate aminotransfera se measurement (enzymatic activity/volume) 12 U/L 5-34 Serum or plasma alanine aminotransferase measurement (enzymatic activity/volume) 11 U/L 0-55 Serum or plasma protein measurement (mass/volume) 6.2 g/dL 6.4-8.2 Serum or plasma albumin measurement (mass/volume) 3.8 g/dL 3.2-4.5 CALCIUM CORRECTED 8.7 mg/dL 8.5-10.1 Serum or plasma salicylates measurement (mass/volume) - 02/19/19 16:20 Serum or plasma salicylates measurement (mass/volume) < mg/dL 5.0-20.0 Serum or plasma acetaminophen measuremen t (mass/volume) - 02/19/19 16:20 Serum or plasma acetaminophen measurement (mass/volume ) < ug/mL 10-30 Serum or plasma ethanol measurement (mas s/volume) - 02/19/19 16:20 Serum or plasma ethanol measurement (mass/volume) < mg/dL <10 Chlamydia DNA amp probe, urine - 9 16:46 Chlamydia DNA amp probe, urine Not Detected Not Detected Urine Neisseria gonorrhoeae DNA assay - 02/19/19 16:46 Gonorrhea amp DNA-urine Not Detected No t Detected Serum reagin antibody assay (units/volum e) by RPR - 02/19/19 16:46 Serum reagin antibody assay (units/volume) by RPR Non-Reactive Non-Reactive Urine drug screening test - 03/01/19 07: 11 Urine phencyclidine detection by screening method NEGATIVE NEGATIVE Urine benzodiazepines detection by screening method NEGATIVE NEGATIVE Urine cocaine detection NEGATIVE NEGATI VE Urine amphetamines detection by screening method N EGATIVE NEGATIVE Urine methamphetamine detection by screening method NEGATIVE NEGATIVE Urine cannabinoids detection by screening method N EGATIVE NEGATIVE Urine opiates detection by screening method NEGATI VE NEGATIVE Urine barbiturates detection NEGATIVE N EGATIVE Screening urine tricyclic antidepressants detection NEGATIVE NEGATIVE Urine methadone detection by screening method NEGA TIVE NEGATIVE Urine oxycodone detection NEGATIVE NEGA TIVE Urine propoxyphene detection NEGATIVE N EGATIVE Complete blood count (CBC) with automate d white blood cell (WBC) differential - 03/01/19 07:12 Blood leukocytes automated count (number/volume) 6.9 10*3/uL 4.3-11.0 Blood erythrocytes automated count (number/volume) 4.89 10*6/uL 4.35-5.85 Venous blood hemoglobin measurement (mass/volume) 15.1 g/dL 13.3-17.7 Blood hematocrit (volume fraction) 44 % 40-54 Automated erythrocyte mean corpuscular volume 90 [ foz_us] 80-99 Automated erythrocyte mean corpuscular h emoglobin (mass per erythrocyte) 31 pg 25-34 Automated erythrocyte mean corpuscular h emoglobin concentration measurement (mass/volume) 34 g/dL 32-36 Automated erythrocyte distribution width ratio 14. 5 % 10.0- 14.5 Automated blood platelet count (count/volume) 247 10*3/uL 130-400 Automated blood platelet mean volume measurement 10.4 [foz_us] 7.4-10.4 Automated blood neutrophils/100 leukocytes 48 % 42-75 Automated blood lymphocytes/100 leukocytes 35 % 12-44 Blood monocytes/100 leukocytes 10 % 0-12 Automated blood eosinophils/100 leukocytes 7 % 0-10 Automated blood basophils/100 leukocytes 1 % 0-10 Blood neutrophils automated count (number/volume) 3.3 10*3 1.8-7.8 Blood lymphocytes automated count (number/volume) 2.4 10*3 1.0-4.0 Blood monocytes automated count (number/volume) 0. 7 10*3 0.0-1.0 Automated eosinophil count 0.5 10*3/uL 0 .0-0.3 Automated blood basophil count (count/volume) 0.1 10*3/uL 0.0-0.1 Comprehensive metabolic panel - 03/01/19 07:12 Serum or plasma sodium measurement (moles/volume) 136 mmol/L 135-145 Serum or plasma potassium measurement (moles/volume) 4.8 mmol/L 3.6-5.0 Serum or plasma chloride measurement (moles/volume) 102 mmol/L 98-107 Carbon dioxide 22 mmol/L 21-32 Serum or plasma anion gap determination (moles/volume) 12 mmol/L 5-14 Serum or plasma urea nitrogen measurement (mass/volume ) 14 mg/dL 7-18 Serum or plasma creatinine measurement (mass/volume) 0.95 mg/dL 0.60-1.30 Serum or plasma urea nitrogen/creatinine mass ratio 15 NRG Serum or plasma creatinine measurement w ith calculation of estimated glomerular filtration rate > NRG Serum or plasma glucose measurement (mass/volume) 106 mg/dL 70-105 Serum or plasma calcium measurement (mass/volume) 9.2 mg/dL 8.5-10.1 Serum or plasma total bilirubin measurement (mass/volu me) 0.3 mg/dL 0.1-1.0 Serum or plasma alkaline phosphatase samson surement (enzymatic activity/volume) 99 U/L 40-136 Serum or plasma aspartate aminotransfera se measurement (enzymatic activity/volume) 18 U/L 5-34 Serum or plasma alanine aminotransferase measurement (enzymatic activity/volume) 20 U/L 0-55 Serum or plasma protein measurement (mass/volume) 7.0 g/dL 6.4-8.2 Serum or plasma albumin measurement (mass/volume) 4.3 g/dL 3.2-4.5 CALCIUM CORRECTED 9.0 mg/dL 8.5-10.1 Serum or plasma salicylates measurement (mass/volume) - 03/01/19 07:12 Serum or plasma salicylates measurement (mass/volume) < mg/dL 5.0-20.0 Serum or plasma acetaminophen measuremen t (mass/volume) - 03/01/19 07:12 Serum or plasma acetaminophen measurement (mass/volume ) < ug/mL 10-30 Serum or plasma ethanol measurement (mas s/volume) - 03/01/19 07:12 Serum or plasma ethanol measurement (mass/volume) < mg/dL <10 TSH (REFLEX FREE T4 IF ABNORMAL) - 03/02 05:18 TSH 1.881 uIU/mL 0.400-4.000 Complete blood count (CBC) with automate d white blood cell (WBC) differential - 06/02/19 13:00 Blood leukocytes automated count (number/volume) 6.7 10*3/uL 4.3-11.0 Blood erythrocytes automated count (number/volume) 5.23 10*6/uL 4.35-5.85 Venous blood hemoglobin measurement (mass/volume) 15.9 g/dL 13.3-17.7 Blood hematocrit (volume fraction) 46 % 40-54 Automated erythrocyte mean corpuscular volume 88 [ foz_us] 80-99 Automated erythrocyte mean corpuscular h emoglobin (mass per erythrocyte) 30 pg 25-34 Automated erythrocyte mean corpuscular h emoglobin concentration measurement (mass/volume) 35 g/dL 32-36 Automated erythrocyte distribution width ratio 13. 5 % 10.0- 14.5 Automated blood platelet count (count/volume) 253 10*3/uL 130-400 Automated blood platelet mean volume measurement 9.5 [foz_us] 7.4-10.4 Automated blood neutrophils/100 leukocytes 63 % 42-75 Automated blood lymphocytes/100 leukocytes 25 % 12-44 Blood monocytes/100 leukocytes 7 % 0-12 Automated blood eosinophils/100 leukocytes 4 % 0-10 Automated blood basophils/100 leukocytes 1 % 0-10 Blood neutrophils automated count (number/volume) 4.3 10*3 1.8-7.8 Blood lymphocytes automated count (number/volume) 1.7 10*3 1.0-4.0 Blood monocytes automated count (number/volume) 0. 5 10*3 0.0-1.0 Automated eosinophil count 0.3 10*3/uL 0 .0-0.3 Automated blood basophil count (count/volume) 0.1 10*3/uL 0.0-0.1 Whole blood basic metabolic panel - 05/14 06/01 13:00 Serum or plasma sodium measurement (moles/volume) 139 mmol/L 135-145 Serum or plasma potassium measurement (moles/volume) 4.2 mmol/L 3.6-5.0 Serum or plasma chloride measurement (moles/volume) 105 mmol/L 98-107 Carbon dioxide 26 mmol/L 21-32 Serum or plasma anion gap determination (moles/volume) 8 mmol/L 5-14 Serum or plasma urea nitrogen measurement (mass/volume ) 17 mg/dL 7-18 Serum or plasma creatinine measurement (mass/volume) 1.18 mg/dL 0.60-1.30 Serum or plasma urea nitrogen/creatinine mass ratio 14 NRG Serum or plasma creatinine measurement w ith calculation of estimated glomerular filtration rate > NRG Serum or plasma glucose measurement (mass/volume) 105 mg/dL 70-105 Serum or plasma calcium measurement (mass/volume) 9.2 mg/dL 8.5-10.1 Encounters ACCT No. Visit Date/Time Discharge Status Pt. Type Provider Facility Loc./Unit Complaint [id number] 12/30/2018 13:15:00 01/02/2019 09:20: 00 DIS Inpatient HE ALCARAZ [facility] SISI [id number] 12/30/2018 16:53:21 Document Registration [id number] 06/02/2019 11:52:00 13:45:00 DIS Emergency YESY TREVIZO APRN [facility] ER DIZZINESS [id number] 03/01/2019 05:44:00 11:00:00 DIS Emergency CIELO MONTES, ANDREW Acuna [facility] ER DEPRESSION [id number] 02/19/2019 14:59:00 19:39:00 DIS Emergency YESY TREVIZO APRN [facility] ER DEPRESSION [id number] 01/22/2019 05:17:00 11:03:00 DIS Emergency BENJAMÍN MONTES, HE Sandoval [facility] ER SUICIDAL,WANTS TO HARM SELF [id number] 01/04/2019 11:50:00 15:25:00 DIS Emergency YESY TREVIZO APRN [facility] ER DEPRESSION [id number] 12/30/2018 11:16:00 15:37:00 DIS Emergency YESY TREVIZO APRN [facility] ER SUICIDAL IDEATION [id number] 10/05/2019 20:58:[address] Emergency YESY TREVIZO APRN [facility] ER ALLERGY ATTACK [id number] 03/01/2019 13:34:00 9 13:10:00 DIS Inpatient MARK DOHERTY [facility] [id number] 07/23/2019 15:45:00 07/23/2019 23:59: 59 CLS [facility]
[2019-10-05] MEDS ORDERED: LORazepam INJ 2 MG/ML (ATIVAN) VIAL ONE (21:10)
--- NOTE | 2019-10-05 21:11 | ED General ---
General Chief Complaint: Allergic Reaction Stated Complaint: ALLERGY ATTACK Source of Information: Patient Exam Limitations: No Limitations History of Present Illness Date Seen by Provider: October 05, 2019 Time Seen by Provider: 21:08 Initial Comments Per EMS from home with reports of an allergic reaction to "atomic weapons". He used methamphetamine most recently yesterday he states. Reports that he's itchy all over. EMS gave 50 mg of Benadryl in the hospital. Timing/Duration: 1-2 Days Severity: Moderate Allergies and Home Medications Allergies Coded Allergies: No Known Drug Allergies (Unverified , 01/04/19) Patient Home Medication List Home Medication List Reviewed: Yes Review of Systems Review of Systems Constitutional: see HPI EENTM: see HPI Respiratory: no symptoms reported Cardiovascular: no symptoms reported Genitourinary: no symptoms reported Musculoskeletal: no symptoms reported Skin: no symptoms reported Psychiatric/Neurological: See HPI Hematologic/Lymphatic: No Symptoms Reported Immunological/Allergic: no symptoms reported Past Hgvwplm-Cnypuq-Lbuupo Hx Patient Social History Alcohol Use: Occasionally Uses Recreational Drug Use: Yes Drug of Choice: meth Smoking Status: Current Everyday Smoker Type Used: Cigarettes 2nd Hand Smoke Exposure: No Recent Hopitalizations: No Immunizations Up To Date Tetanus Booster (TDap): Unknown Seasonal Allergies Seasonal Allergies: Yes Past Medical History Surgeries: Yes Prostatectomy Respiratory: No Cardiac: No Neurological: No Genitourinary: Yes Prostate Problems Gastrointestinal: No (INGUINAL HERNIA) Musculoskeletal: No Endocrine: No HEENT: No Cancer: No Psychosocial: Yes ("BIPOLAR TYPE 2, SCHIZOID NO DILUSIONS") Sleep Difficulties, Anxiety, Bipolar, Depression Integumentary: No Blood Disorders: No Physical Exam Vital Signs Capillary Refill : Height, Weight, BMI Height: 5'10.00" Weight: 150lbs. oz. 68.497072hm; 24.00 BMI Method:Stated General Appearance: No Apparent Distress, WD/WN, Other (alert and oriented, knows he is [facility] years 2019. He does have some delusions stating that his allergic reaction tonight is to atomic weapons) Eyes: Bilateral Eye Normal Inspection, Bilateral Eye PERRL, Bilateral Eye EOMI Neck: Full Range of Motion, Normal Inspection Respiratory: No Accessory Muscle Use, No Respiratory Distress Cardiovascular: Normal Peripheral Pulses Extremity: Normal Capillary Refill, Normal Inspection Neurologic/Psychiatric: Alert, Other (delusional thinking, nonsensical statements and lack of coherence of statements) Skin: Normal Color, Warm/Dry Progress/Results/Core Measures Suspected Sepsis SIRS Temperature: Pulse: Respiratory Rate: Blood Pressure / Mean: Results/Orders My Orders Orders - YESY TREVIZO APRN Olanzapine Orally Dissolve Tab (Zyprexa (10/05/19 20:53) Cbc With Automated Diff (10/05/19 21:07) Comprehensive Metabolic Panel (10/05/19 21:07) Ua Culture If Indicated (10/05/19 21:07) Drug Screen Stat (Urine) (10/05/19 21:07) Olanzapine Orally Dissolve Tab (Zyprexa (10/05/19 21:15) Medications Given in ED Current Medications Medications Dose Ordered Sig/Christopher Route Start Time Stop Time Status Last Admin Dose Admin Olanzapine 5 mg STK-MED ONCE .ROUTE 10/05/19 20:53 10/05/19 21:01 DC 10/05/19 21:01 5 MG Vital Signs/I&O Capillary Refill : Departure Impression Primary Impression: Methamphetamine use Additional Impression: Delusions Disposition: HOME, SELF-CARE Condition: Stable Departure-Patient Inst. Referrals: NO,LOCAL PHYSICIAN (PCP/Family) Primary Care Physician YESY TREVIZO APRN October 05, 2019 21:10
[2019-10-05] MEDS ORDERED: OLANZapine 5 MG ODT (ZyPREXA ZYDIS) PO ONE (21:15)
--- NOTE | 2019-10-05 21:15 | NUR ---
pt refusing to leave monitor on.
[2019-10-05 21:18] LABS: BASOPHILS # (AUTO) 0.1 10^3/uL (0.0-0.1); BASOPHILS % (AUTO) 1 % (0-10); EOSINOPHILS # (AUTO) 0.4 10^3/uL (0.0-0.3); EOSINOPHILS % (AUTO) 8 % (0-10); HEMATOCRIT 38 % (40-54); HEMOGLOBIN 13.1 G/DL (13.3-17.7); LYMPHOCYTES # (AUTO) 2.3 X 10^3 (1.0-4.0); LYMPHOCYTES % (AUTO) 43 % (12-44); MEAN CORPUSCULAR HEMOGLOBIN 31 PG (25-34); MEAN CORPUSCULAR HGB CONC 34 G/DL (32-36); MEAN CORPUSCULAR VOLUME 90 FL (80-99); MEAN PLATELET VOLUME 10.8 FL (7.4-10.4); MONOCYTES # (AUTO) 0.6 X 10^3 (0.0-1.0); MONOCYTES % (AUTO) 12 % (0-12); NEUTROPHILS % (AUTO) 36 % (42-75); PLATELET COUNT 231 10^3/uL (130-400); RED CELL DISTRIBUTION WIDTH 13.7 % (10.0-14.5); WHITE BLOOD COUNT 5.4 10^3/uL (4.3-11.0)
--- NOTE | 2019-10-05 21:20 | NUR ---
iv removed by beau dumont
[2019-10-05 21:21] LABS: BILIRUBIN,URINE NEGATIVE (NEGATIVE); CLARITY,URINE CLEAR; COLOR,URINE YELLOW; GLUCOSE, URINE (UA) NEGATIVE (NEGATIVE); KETONES,URINE NEGATIVE (NEGATIVE); LEUKOCYTE ESTERASE ,URINE NEGATIVE (NEGATIVE); NITRITE,URINE NEGATIVE (NEGATIVE); PH,URINE 6.5 (5-9); PROTEIN,URINE NEGATIVE (NEGATIVE)
[2019-10-05] MEDS ORDERED: LORazepam INJ 2 MG/ML (ATIVAN) VIAL IVP ONE (21:30)
[2019-10-05 21:33] LABS: ALANINE AMINOTRANSFERASE 15 U/L (0-55); ALBUMIN 3.6 GM/DL (3.2-4.5); ALKALINE PHOSPHATASE 102 U/L (40-136); BILIRUBIN,TOTAL 0.3 MG/DL (0.1-1.0); BUN/CREATININE RATIO 14; CALCIUM 8.5 MG/DL (8.5-10.1); CARBON DIOXIDE 19 MMOL/L (21-32); CHLORIDE 109 MMOL/L (98-107); CREATININE SERUM 0.96 MG/DL (0.60-1.30); GFR ESTIMATED > 60; GLUCOSE 116 MG/DL (70-105); POTASSIUM 4.2 MMOL/L (3.6-5.0); SODIUM 141 MMOL/L (135-145); TOTAL PROTEIN 6.1 GM/DL (6.4-8.2)
[2019-10-05 21:33] LABS: BACTERIA,URINE TRACE /HPF; WBC,URINE RARE /HPF
[2019-10-05 21:34] LABS: AMPHETAMINE SCREEN, URINE POSITIVE (NEGATIVE); BARBITURATE SCREEN URINE NEGATIVE (NEGATIVE); BENZODIAZEPINES SCREEN URINE NEGATIVE (NEGATIVE); CANNABINOID SCREEN, URINE NEGATIVE (NEGATIVE); COCAINE SCREEN URINE NEGATIVE (NEGATIVE); METHADONE STAT NEGATIVE (NEGATIVE); METHAMPHETAMINE SCREEN URINE S NEGATIVE (NEGATIVE); OPIATE SCREEN URINE NEGATIVE (NEGATIVE); OXYCODONE STAT NEGATIVE (NEGATIVE); PROPOXYPHENE STAT NEGATIVE (NEGATIVE); TRICYCLIC ANTIDEPRESSANTS SCRE NEGATIVE (NEGATIVE)
== END 2019-10-05 21:37 | disposition home or self-care (01) ==
LOC: EDUNIT# 20:57 → ER 20:58
DX: F15.90 Other stimulant use, unspecified, uncomplicated (principal); F22 Delusional disorders; F17.210 Nicotine dependence, cigarettes, uncomplicated
CPT/HCPCS: 36415; 80053; 80306; 81000; 85025; 96374

== ENCOUNTER 2019-10-12 18:21 | Emergency (ER) | payer MEDICARE ==
[~2019-10-12] VITALS: Ht 177.8 cm; Wt 55.4 kg
[~2019-10-12 18:21] MED LIST changes: +BUPR300T98; +LTH450TCR; -OLANZapine 5 MG ODT (ZyPREXA ZYDIS) ONE
--- NOTE | 2019-10-12 18:27 | ED General ---
General Chief Complaint: Allergic Reaction Stated Complaint: ALLERGIES Source of Information: Patient, EMS Exam Limitations: No Limitations History of Present Illness Date Seen by Provider: Oct 12, 2019 Time Seen by Provider: 18:15 Initial Comments Patient presents to ER by EMS with chief complaint of seasonal allergies to everything green, [place] pollen etc. He says typically he takes Benadryl for 5 tablets of time. He does not take anything else prescription [place]. He says he'll also use pseudoephedrine and methamphetamines as this helps clear up his nose. He says is been attacking him for the past 2 weeks and so used methamphetamines which cleared up his nose but then he got put in [facility] and he just got released today. After being released from [facility] he went straight to the EMS station and management a ride to the hospital for Benadryl area and he would like Benadryl IV as well as 4 tablets by mouth. Allergies and Home Medications Allergies Coded Allergies: No Known Drug Allergies (Unverified , 01/04/19) Patient Home Medication List Home Medication List Reviewed: Yes Review of Systems Review of Systems Constitutional: No chills, No diaphoresis EENTM: No ear discharge, No ear pain Respiratory: No cough, No short of breath Cardiovascular: No edema, No Hx of Intervention Gastrointestinal: No abdominal pain, No constipation, No diarrhea Genitourinary: No decreased output, No discharge Musculoskeletal: No back pain, No joint pain All Other Systems Reviewed Negative Unless Noted: Yes Past Ztaeqvw-Faphxe-Gqbirf Hx Patient Social History Alcohol Use: Denies Use Recreational Drug Use: Yes Drug of Choice: meth Smoking Status: Current Everyday Smoker Type Used: Cigarettes 2nd Hand Smoke Exposure: No Recent Hopitalizations: No Immunizations Up To Date Tetanus Booster (TDap): Unknown Seasonal Allergies Seasonal Allergies: Yes Past Medical History Surgeries: Yes Prostatectomy Respiratory: No Cardiac: No Neurological: No Genitourinary: Yes Prostate Problems Gastrointestinal: No (INGUINAL HERNIA) Musculoskeletal: No Endocrine: No HEENT: No Cancer: No Psychosocial: Yes ("BIPOLAR TYPE 2, SCHIZOID NO DILUSIONS") Sleep Difficulties, Anxiety, Bipolar, Depression Integumentary: No Blood Disorders: No Physical Exam Vital Signs Vital Signs - First Documented 10/12/19 18:21 Temp 36.6 Pulse 97 Resp 18 B/P (MAP) 145/96 (112) Pulse Ox 98 O2 Delivery Room Air Capillary Refill : Height, Weight, BMI Height: 5'10.00" Weight: 150lbs. oz. 68.602613ue; 24.00 BMI Method:Stated General Appearance: No Apparent Distress, WD/WN Eyes: Bilateral Eye Normal Inspection, Bilateral Eye PERRL, Bilateral Eye EOMI HEENT: PERRL/EOMI, Pharynx Normal, Moist Mucous Membranes Neck: Full Range of Motion, Normal Inspection Respiratory: Lungs Clear, Normal Breath Sounds, No Accessory Muscle Use, No Respiratory Distress Cardiovascular: Regular Rate, Rhythm, Normal Peripheral Pulses Neurologic/Psychiatric: Alert, Oriented x3 (person place time and situation. Short and long-term memory are intact.), No Motor/Sensory Deficits Progress/Results/Core Measures Suspected Sepsis SIRS Temperature: Pulse: Respiratory Rate: Blood Pressure / Mean: Results/Orders My Orders Orders - TORI MORALES Diphenhydramine Tablet (Benadryl Tablet) (10/12/19 18:30) Medications Given in ED Current Medications Medications Dose Ordered Sig/Christopher Route Start Time Stop Time Status Last Admin Dose Admin Diphenhydramine HCl 50 mg ONCE ONCE PO 10/12/19 18:30 10/12/19 18:31 10/12/19 18:30 50 MG Vital Signs/I&O 10/12/19 18:21 Temp 36.6 Pulse 97 Resp 18 B/P (MAP) 145/96 (112) Pulse Ox 98 O2 Delivery Room Air Capillary Refill : Progress Note : Time: 18:35 Progress Note Patient admits having used methamphetamines and would like some Benadryl which oftentimes can be helpful for some of the side effects. He does not have any apparent rhinorrhea, shortness of breath, increased work of breathing, wheezing on auscultation. His oxygen sats and heart sounds are normal. His vital signs are aseptic. We will be happy to give him a dose of Benadryl 50 mg as well as some Claritin samples. We have discussed return precautions and he is okay with this plan. He walked out under his own power and had no material deterioration during his stay here. Several times when he saw one of the practitioners who apparently he has been under the care of in the past he became agitated. He yelled several cuts words told him that he was going to carol him but was easily redirected and encouraged to discharge peacefully. airline pilot/first officer was on hand but not necessary to redirect his behavior. Departure Impression Primary Impression: Seasonal allergies Additional Impression: Methamphetamine abuse Disposition: 01 HOME, SELF-CARE Condition: Stable Departure-Patient Inst. Decision time for Depature: 18:26 Referrals: NO,LOCAL PHYSICIAN (PCP/Family) Primary Care Physician Patient Instructions: Seasonal Allergies (DC) Add. Discharge Instructions: Claritin or Zyrtec one tablet daily for seasonal allergies. He still have breakthrough allergies he can take one to 2 tablets of Benadryl every 6 hours. All discharge instructions reviewed with patient and/or family. Voiced understromulo alvarado. TORI MORALES Oct 12, 2019 18:27
[2019-10-12 18:30] VITALS: BP 145/96
[2019-10-12] MEDS ORDERED: diphenhydrAMINE 25 MG TAB (BENADRYL) PO ONE (18:30)
--- OUTSIDE RECORDS SUMMARY | 2019-10-12 23:32 | XMS REPORT | Continuity of Care Document ---
Author Organization Unknown Address Unknown Phone Unavailable Allergies Active Description Code Type Severity Reaction Onset Reported/Identified Relationship to Patient Clinical Status Yes NO KNOWN DRUG ALLERGIES UNKNOWN UNKNOWN Yes No Known Drug Allergies [id number] Drug Allergy Unknown N/A 01/04/2019 Yes POLLEN EXTRACT 77315 DRUG INGREDI N/A Other 03/07/2019 03/07/2019 Medications [...] 03/01/2019 O ral 30 EVERY 6 HOURS ID N hydrOXYzine (ATARAX) tablet 50 mg 03/01/2019 [...] W Z59 .0 HOMELESSNESS 01/04/2019 YESY TREVIZO SUPERVISOR STATEMENT CLERKS Ot F31 .9 BIPOLAR DISORDER, UNSPECIFIED 01/04/2019 YESY TREVIZO SUPERVISOR STATEMENT CLERKS Ot R45.851 SUICIDAL IDEATIONS 01/07/2019 YESY TREVIZO SUPERVISOR STATEMENT CLERKS Ot F31 .9 BIPOLAR DISORDER, UNSPECIFIED 01/07/2019 YESY TREVIZO APRN Ot R45.851 SUICIDAL IDEATIONS 01/22/2019 BENJAMÍN MONTES, HE Sandoval Ot F20.9 SCHIZOPHRENIA, UNSPECIFIED 01/22/2019 BENJAMÍN MONTES, HE Sandoval Ot F32.9 MAJOR DEPRESSIVE DISORDER, SINGLE EPISOD 01/22/2019 BENJAMÍN MONTES, HE Sandoval Ot F41.9 ANXIETY DISORDER, UNSPECIFIED 01/22/2019 BENJAMÍN MONTES, HE Sandoval Ot R45.851 SUICIDAL IDEATIONS 02/19/2019 YESY TREVIZO SUPERVISOR STATEMENT CLERKS Ot F17.210 NICOTINE DEPENDENCE, CIGARETTES, UNCOMPL 02/19/2019 YESY TREVIZO SUPERVISOR STATEMENT CLERKS Ot F31 .9 BIPOLAR DISORDER, UNSPECIFIED 02/19/2019 YESY TREVIZO SUPERVISOR STATEMENT CLERKS Ot F41 .9 ANXIETY DISORDER, UNSPECIFIED 02/19/2019 YESY TREVIZO SUPERVISOR STATEMENT CLERKS Ot N39 .0 URINARY TRACT INFECTION, SITE NOT SPECIF 02/19/2019 YESY TREVIZO APRN Ot R45.851 SUICIDAL IDEATIONS 02/19/2019 YESY TREVIZO APRN Ot Z98.890 OTHER SPECIFIED POSTPROCEDURAL STATES 02/24/2019 YESY TREVIZO SUPERVISOR STATEMENT CLERKS Ot F17.210 NICOTINE DEPENDENCE, CIGARETTES, UNCOMPL 02/24/2019 [...] F41. 9 ANXIETY DISORDER, UNSPECIFIED 03/01/2019 CIELO MNOTES, ANDREW Acuna Ot R45.851 SUICIDAL IDEATIONS 03/01/2019 CIELO MONTES, ANDREW [place] Ot Z98.890 OTHER SPECIFIED POSTPROCEDURAL STATES 03/09/2019 MARK DOHERTY V [id number] Suicidal 03/09/2019 MARK DOHERTY F31.2 Bipolar disorder, [...] in childhood 03/09/2019 MARK DOHERTY Z79.899 Other terminal make up operator (current) drug therapy 06/02/2019 YESY TREVIZO APRN Ot F17.210 NICOTINE DEPENDENCE, CIGARETTES, UNCOMPL 06/02/2019 YESY TREVIZO APRN Ot F31 .9 BIPOLAR DISORDER, UNSPECIFIED 06/02/2019 YESY TREVIZO APRN Ot F41 .9 ANXIETY DISORDER, UNSPECIFIED 06/02/2019 YESY TREVIZO APRN Ot R42 DIZZINESS AND GIDDINESS 10/09/2019 TREVIZO, PETER J SUPERVISOR STATEMENT CLERKS Ot F15.90 OTHER STIMULANT USE, UNSPECIFIED, UNCOMP 10/09/2019 YESY TREVIZO SUPERVISOR STATEMENT CLERKS Ot F17.210 NICOTINE DEPENDENCE, CIGARETTES, UNCOMPL 10/09/2019 TREVIZOYESY WHITTINGTON David SUPERVISOR STATEMENT CLERKS Ot F22 DELUSIONAL DISORDERS 10/11/2019 TREVIZOYESY WHITTINGTON SUPERVISOR STATEMENT CLERKS Ot F15.90 OTHER STIMULANT USE, UNSPECIFIED, UNCOMP 10/11/2019 YESY TREVIZO SUPERVISOR STATEMENT CLERKS Ot F17.210 NICOTINE DEPENDENCE, CIGARETTES, UNCOMPL 10/11/2019 TREVIZO YESY Hernandez SUPERVISOR STATEMENT CLERKS Ot F22 DELUSIONAL DISORDERS Procedures There is no data. Results Test [...] plasma calcium measurement (mass/volume) 9.2 mg/dL 8.5-10.1 Complete blood count (CBC) with automate d white blood cell (WBC) differential - 10/05/19 21:00 Blood leukocytes automated count (number/volume) 5.4 10*3/uL 4.3-11.0 Blood erythrocytes automated count (number/volume) 4.26 10*6/uL 4.35-5.85 Venous blood hemoglobin measurement (mass/volume) 13.1 g/dL 13.3-17.7 Blood hematocrit (volume fraction) 38 % 40-54 Automated erythrocyte mean corpuscular volume 90 [ foz_us] 80-99 Automated erythrocyte mean corpuscular h emoglobin (mass per erythrocyte) 31 pg 25-34 Automated erythrocyte mean corpuscular h emoglobin concentration measurement (mass/volume) 34 g/dL 32-36 Automated erythrocyte distribution width ratio 13. 7 % 10.0- 14.5 Automated blood platelet count (count/volume) 231 10*3/uL 130-400 Automated blood platelet mean volume measurement 10.8 [foz_us] 7.4-10.4 Automated blood neutrophils/100 leukocytes 36 % 42-75 Automated blood lymphocytes/100 leukocytes 43 % 12-44 Blood monocytes/100 leukocytes 12 % 0-12 Automated blood eosinophils/100 leukocytes 8 % 0-10 Automated blood basophils/100 leukocytes 1 % 0-10 Blood neutrophils automated count (number/volume) 2.0 10*3 1.8-7.8 Blood lymphocytes automated count (number/volume) 2.3 10*3 1.0-4.0 Blood monocytes automated count (number/volume) 0. 6 10*3 0.0-1.0 Automated eosinophil count 0.4 10*3/uL 0 .0-0.3 Automated blood basophil count (count/volume) 0.1 10*3/uL 0.0-0.1 Comprehensive metabolic panel - 10/05/19 21:00 Serum or plasma sodium measurement (moles/volume) 141 mmol/L 135-145 Serum or plasma potassium measurement (moles/volume) 4.2 mmol/L 3.6-5.0 Serum or plasma chloride measurement (moles/volume) 109 mmol/L 98-107 Carbon dioxide 19 mmol/L 21-32 Serum or plasma anion gap determination (moles/volume) 13 mmol/L 5-14 Serum or plasma urea nitrogen measurement (mass/volume ) 13 mg/dL 7-18 Serum or plasma creatinine measurement (mass/volume) 0.96 mg/dL 0.60-1.30 Serum or plasma urea nitrogen/creatinine [...] or plasma alanine aminotransferase measurement (enzymatic activity/volume) 15 U/L 0-55 Serum or plasma protein measurement (mass/volume) 6.1 g/dL 6.4-8.2 Serum or plasma albumin measurement (mass/volume) 3.6 g/dL 3.2-4.5 CALCIUM CORRECTED 8.8 mg/dL 8.5-10.1 Complete urinalysis with reflex to cultu re - 10/05/19 21:13 Urine color determination YELLOW NRG Urine clarity determination CLEAR NR G Urine pH measurement by test strip 6.5 5-9 Specific gravity of urine by test strip <= 1.016-1.022 Urine protein assay by test strip, [...] urobilinogen measurement by automated test strip (mass/volume) 1.0 mg/dL < = 1.0 Urine leukocyte esterase detection by dipstick NEG ATIVE NEGATIVE Automated urine sediment erythrocyte cou nt by microscopy (number/high power field) NONE NRG Automated urine sediment leukocyte count by microscopy (number/high power field) RARE NRG Bacteria detection in urine sediment by light microsco py TRACE NRG Crystals detection in urine sediment by light microsco py NONE NRG Casts detection in urine sediment by light microscopy NONE NRG Mucus detection in urine sediment by light microscopy NEGATIVE NRG Complete urinalysis with reflex to culture NO NRG Urine drug screening test - 10/05/19 21: 13 Urine phencyclidine detection by screening method NEGATIVE NEGATIVE Urine benzodiazepines detection by screening method NEGATIVE NEGATIVE Urine cocaine detection NEGATIVE NEGATI VE Urine amphetamines detection by screening method P OSITIVE NEGATIVE Urine methamphetamine detection by screening method NEGATIVE NEGATIVE Urine cannabinoids detection by screening method N EGATIVE NEGATIVE Urine opiates detection by screening method NEGATI VE NEGATIVE Urine barbiturates detection NEGATIVE N EGATIVE Screening urine tricyclic antidepressants detection NEGATIVE NEGATIVE Urine methadone detection by screening method NEGA TIVE NEGATIVE Urine oxycodone detection NEGATIVE NEGA TIVE Urine propoxyphene detection NEGATIVE N EGATIVE Encounters ACCT No. Visit Date/Time Discharge Status Pt. Type Provider Facility Loc./Unit Complaint [id number] 12/30/2018 13:15:00 01/02/2019 09:20: 00 DIS Inpatient [facility] [id number] 12/30/2018 16:53:21 Document Registration [id number] 10/12/2019 18:22:00 18:30:00 DIS Emergency TORI MORALES MD [facility] ALLERGIES [id number] 10/05/2019 20:58:00 21:37:00 DIS Outpatient YESY TREVIZO APRN [facility] ALLERGY ATTACK [id number] 06/02/2019 11:52:00 13:45:00 DIS Emergency YESY TREVIZO APRN [facility] DIZZINESS [id number] 03/01/2019 05:44:00 11:00:00 DIS Emergency ANDREW BUCK MD [facility] DEPRESSION [id number] 02/19/2019 14:59:00 19:39:00 DIS Emergency YESY TREVIZO APRN [facility] DEPRESSION [id number] 01/22/2019 05:17:00 11:03:00 DIS Emergency BENJAMÍN MONTES, HE Sandoval [facility] SUICIDAL,WANTS TO HARM SELF [id number] 01/04/2019 11:50:00 15:25:00 DIS Emergency YESY TREVIZO APRN [facility] DEPRESSION [id number] 12/30/2018 11:16:00 15:37:00 DIS Emergency YESY TREVIZO APRN [facility] SUICIDAL IDEATION [id number] 03/01/2019 13:34:00 9 13:10:00 DIS Inpatient DOHERTYMARK MATAMOROS [facility] [id number] 07/23/2019 15:45:00 07/23/2019 23:59: 59 [facility] Outpatient CORRY CHICAS [facility]
== END 2019-10-12 18:30 | disposition home or self-care (01) ==
LOC: EDUNIT# 18:21 → ER 18:22
DX: J30.2 Other seasonal allergic rhinitis (principal); F15.10 Other stimulant abuse, uncomplicated; F17.210 Nicotine dependence, cigarettes, uncomplicated
CPT/HCPCS: 99283

== ENCOUNTER 2020-02-10 13:19 | Outpatient (CLI) | payer MEDICARE ==
[~2020-02-10] VITALS: Ht 177.8 cm; Wt 78.4 kg
[2020-02-10 13:26] VITALS: BP 116/72
[2020-02-11] MEDS ORDERED: CITA20TA9 PO (10:41)
[2020-02-11] MEDS ORDERED: LITH300T3 PO (10:41)
[2020-02-11] MEDS ORDERED: TRAZ-227 PO (10:41)
== END 2020-02-10 13:45 | disposition home or self-care (01) ==
LOC: PREOP 13:19
PROVIDERS: ATTEND Surgery
DX: Z01.818 Encounter for other preprocedural examination (principal)
CPT/HCPCS: 87081

== ENCOUNTER → 2020-02-16 | Outpatient (CLI) | payer MEDICARE ==
[~2020-02-16] MED LIST changes: +CITA20TA9 PO; +HYDR-4226 PO; +LITH300T3 PO; +TRAZ-227 PO
== END ==
LOC: LABNPT 06:10
PROVIDERS: ATTEND Surgery
DX: Z01.812 Encounter for preprocedural laboratory examination (principal); Z20.828 Contact with and (suspected) exposure to other viral communicable diseases; K40.20 Bilateral inguinal hernia, without obstruction or gangrene, not specified as recurrent
CPT/HCPCS: 87635

== ENCOUNTER 2020-02-17 07:23 | Day surgery (SDC) | payer MEDICARE ==
[2020-02-17] VITALS (11 sets, daily range): BP systolic 101–128; BP diastolic 59–79
[~2020-02-17] VITALS: Ht 177.8 cm; Wt 78.4 kg
[~2020-02-17 07:23] MED LIST changes: -HYDR-4226 PO
--- NOTE | 2020-02-17 08:13 | Progress Note-Pre Operative ---
Pre-Operative Progress Note H&P Reviewed The H&P was reviewed, patient examined and no changes noted. Time Seen by Provider: 08:10 Date H&P Reviewed: Feb 17, 2020 Time H&P Reviewed: 08:11 Pre-Operative Diagnosis: B/L IH, incarcerated left AYSE MOON DO Feb 17, 2020 08:13
[2020-02-17] MEDS ORDERED: ceFAZolin 2 GM IV Premixed 50 ML ONE (08:20)
[2020-02-17] MEDS ORDERED: ceFAZolin 2 GM IV Premixed 50 ML IV ONE (08:30)
[2020-02-17] MEDS: LACTATED RINGERS 1,000 ML IV PRN ×3 (08:42→14:24)
[2020-02-17 09:29] LABS: AMPHETAMINE SCREEN, URINE NEGATIVE (NEGATIVE); BARBITURATE SCREEN URINE NEGATIVE (NEGATIVE); BENZODIAZEPINES SCREEN URINE NEGATIVE (NEGATIVE); CANNABINOID SCREEN, URINE NEGATIVE (NEGATIVE); COCAINE SCREEN URINE NEGATIVE (NEGATIVE); METHADONE STAT NEGATIVE (NEGATIVE); METHAMPHETAMINE SCREEN URINE S NEGATIVE (NEGATIVE); OPIATE SCREEN URINE NEGATIVE (NEGATIVE); OXYCODONE STAT NEGATIVE (NEGATIVE); PROPOXYPHENE STAT NEGATIVE (NEGATIVE); TRICYCLIC ANTIDEPRESSANTS SCRE NEGATIVE (NEGATIVE)
[2020-02-17] MEDS ORDERED: BUP/EPI 0.25% 1:200,000 (MARCAINE) 30 ML VIAL ONE (10:30)
[2020-02-17] MEDS ORDERED: LIDOCAINE PF 2% 5 ML (XYLOCAINE) VIAL ONE (11:39)
[2020-02-17] MEDS ORDERED: ROCURONIUM 10 MG/ML 5 ML SYRINGE IV ONE ×2 (11:39→14:08)
[2020-02-17] MEDS ORDERED: ONDANSETRON 4 MG/2 ML (SDV) Z0FRAN ONE (11:39)
[2020-02-17] MEDS ORDERED: MIDAZOLAM 2 MG/2 ML (VERSED) VIAL ONE (11:39)
[2020-02-17] MEDS ORDERED: proPOfol 200 MG/20 ML (DIPRIVAN) VIAL IV ONE (11:39)
[2020-02-17] MEDS ORDERED: fentaNYL INJECTION 100 MCG/2 ML AMP ONE (11:40)
[2020-02-17] MEDS ORDERED: SEVOFLURANE (ULTANE) 15 ML INHAL SOLN ONE ×7 (11:42→14:52)
[2020-02-17] MEDS ORDERED: GLYCOPYRROLATE 0.2 MG/ML (ROBINUL) 2 ML VIAL ONE ×2 (13:59)
[2020-02-17] MEDS ORDERED: NEOSTIGMINE 3 MG/3 ML VIAL ONE (14:00)
[2020-02-17] MEDS ORDERED: HYDROmorphone 2 MG/ML VIAL (DILAUDID) ONE (15:02)
--- NOTE | 2020-02-17 15:52 | Anesthesia-General Post-Op ---
General Patient Condition Mental Status/LOC: Same as Preop Cardiovascular: Satisfactory Nausea/Vomiting: Absent Respiratory: Satisfactory Pain: Controlled Complications: Absent Post Op Complications Complications None Follow Up Care/Instructions Patient Instructions None needed. Anesthesia/Patient Condition Patient Condition Patient is doing well, no complaints, stable vital signs, no apparent adverse anesthesia problems. No complications reported per nursing. VALERIE ACOSTA CRNA Feb 17, 2020 15:52
--- NOTE | 2020-02-17 15:52 | Progress Note-Post Operative ---
Post-Operative Progess Note Surgeon (s)/Invoice Checker (s) Surgeon AYSE MOON DO Invoice Checker: [facility] Pre-Operative Diagnosis B/L IH, incarcerated left Post-Operative Diagnosis B/L IH - both incarcerated and indirect Right Incarcerated Femoral hernia Procedure & Operative Findings Date of Procedure 02/17/20 Procedure Performed/Findings Laparoscopic B/L IH with mesh placement - robotic assisted Laparoscopic Left femoral herniarraphy - robotic assisted INDICATION FOR PROCEDURE: The patient is a 64-year-old male, who has a large left inguinal hernia - incarcerated and a right inguinal hernia. He wanted to get this fixed robotically, so we scheduled this. FINDINGS: The patient had a large left incarcerated inguinal hernia as well as a cord lipoma and an incarcerated right inguinal hernia; both looked to be indirect. As well found an incarcerated left femoral hernia. Pictures were taken. These were repaired. PROCEDURE NOTE: After informed consent was obtained, the patient was brought to the operating room and placed on the operating table in a supine position. He was sterilely prepped and draped in a normal fashion. Local lidocaine was used to infiltrate the skin above the umbilicus. I made an incision with #11 blade, carried down to the skin into subcutaneous tissue and then deepened down the subcutaneous tissue with Bovie electrocautery down to the fascia. Fascia was incised with Bovie electrocautery and bluntly entered the abdomen, swept a finger around, placed 0 Vicryl [id number] suture and placed limited trocar port under direct visualization. Created pneumoperitoneum, able to visualize the hernia and took a picture of this and then placed two 8 mm ports about 10 cm on either side of the midline port using a local lidocaine, 11 blade for stab incision and then advanced the robotic port under direct visualization. Once this was in, I then placed the patient in a Trendelenburg and then placed the working instruments, the fenestrated bipolar and the scissors. I elected to start on the left side for this inguinal hernia. Started approximately 8 cm away from the hernia defect, came across the peritoneum, freeing this up from and then going across laterally starting from just about the midline. The patient incidentally appeared to have an incarcerated right inguinal hernia; both appeared to be indirect. We came across laterally all the way out about 15 to 16 cm, possibly more and then carefully dissected the visceral peritoneum away and down and then in the midline, went through the parietal side and dissected down to the pubic tubercle, dissecting this down carefully pushing the peritoneum away, we were able to then visualize the pubic tubercle and Rick's ligament. I then did the same thing on the right side and went 2 cm posterior and at this point, we then had a critical view of the dissection, able to dissect all the way across the midline to the right side, 2 cm posterior to the Rick's ligament, able to then parietalize the vas deferens and spermatic vessels right at the groove between Rick's and iliac vein and able to dissect, make sure there was no peritoneum between those two, able to see both indirect hernia spaces, took a picture of this, looked at the femoral space. Actually found an incarcerated right femoral hernia and took out the fat that was stuck in the hernia space. Able to see both cord and cord structures. There did not appear to be a direct hernia space on the left but may hve been one on the right. I then reduced a cord lipoma on the left and able to dissect out both indirect hernia scs; right and left. I carried the posterior lateral dissection all the way out on both sides and then placed a right and left 12 x 17 light Bard 3DMax mesh. It laid in nicely, covered all of the hernia defects and all of the area and it was above the peritoneum, sutured both at the pubic tubercle with a 3-0 Vicryl suture and tied this off. I then sutured both meshes laterally with 3-0 Vicryl suture. The meshes both laid down nicely, then decreased the pn eumoperitoneum to about 10 mmHg and then started from laterally and used a 2-0 barbed suture to start closing the peritoneum. Used three of them to close the peritoneum all the way across in one transverse line; running to close the peritoneum. This was closed nicely, took a picture of the closure at this point, then removed all needles had switched to a suture driver medic from the scissors. The patient was then placed back supine, removed all ports under direct visualization, allowed pneumoperitoneum to escape and then closed the supraumbilical incision, closing the fascia with 0 Vicryl suture previously placed. Copiously irrigated all incisions and then closed the two small 8 mm incisions with two interrupted 4-0 undyed Monocryl subcuticular stitches and closed the supraumbilical incision with three interrupted undyed Monocryl subcuticular stitch. Area was cleaned and dried. Dermabond was placed. The patient tolerated the procedure. The sponge, instrument and needle counts were correct at the end of the case. Dr. Vegas assisted me in this case helping to make incisions, close incisions, identify anatomy and passed instrument and passed me the needles. Anesthesia Type GET Estimated Blood Loss Estimated blood loss (mL): less than 20ml Specimens/Packing Specimens Removed none AYES MOON DO Feb 17, 2020 15:52
[2020-02-17] MEDS ORDERED: HYDR-4226 PO (15:53)
--- NOTE | 2020-02-17 15:54 | Discharge Inst-Surgical ---
Discharge Inst-Surgical Depart Medication/Instructions New, Converted or Re-Newed RX: RX Given to Pt/Family Patient Instructions Follow up Appt: Make appointment for 1 week. [phone] Instructions: No lifting greater than 20 pounds. No strenuous activity. May shower in 24 hours, no tub bath or soaking. Use incentive spirometer at home as directed. No Smoking Skin/Wound Care: May remove bandages in am. You need to leave the Dermabond on incision it will fall off on it's own. Symptoms to Report: Appetite Changes, Extremity Discoloration, Numbness/Tingling, Swelling Increased, Bleeding Excessive, Eyesight Changes, Pain Increased, Urine Color Change, Constipation(Persistent), Fever over 101 degree F, Pain/Pressure in chest, Urinating Difficulty, Cough Up/Vomit Blood, Heart Beat Irreg/Pounding, Pain/Pressure in jaw, Cramps in feet or legs, Lightheadedness, Pain/Pressure in shoulder, Diarrhea(Persistent), Memory Changes Suddenly, Questions/Concerns, Weight gain consecutive days, Dizziness/Fainting, Nausea/Vomiting, Shortness of Breath, Weight gain over 2 pounds If questions or concerns contact your physician Or seek help at emergency department. Activity Activity Instructions: Avoid Stress to Incision Driving Instructions: No Driving/Refer to Dr. Ferrell Discharge Diet: Eat Small Frequent Meals Diet After 24 Hours: Clear Liquid if Nauseous If Any Problems/Questions/Issu: Contact Your Physician, Go to Emergency Room Skin/Wound Care Infection Signs and Symptoms: Increased Redness, Foul Odor of Wound, Increased Drainage, Skin Itchy or Has a Rash, Increased Swelling, Temperature Above 101 F Wound Care Comment: heating pad to shoulder or neck tonight for pain Bathing Instructions: Shower Stitches/[place]/Dermabond Dis: Dermabond Ice Pack: Ice On and Off Site AYSE MOON DO Feb 17, 2020 15:54
[2020-02-17] MEDS ORDERED: ONDANSETRON 4 MG/2 ML (SDV) Z0FRAN IVP PRN (16:00)
[2020-02-17] MEDS ORDERED: fentaNYL INJECTION 100 MCG/2 ML AMP IVP ONE (16:00)
[2020-02-17] MEDS ORDERED: HYDROmorphone 2 MG/ML VIAL (DILAUDID) IV ONE (16:00)
--- NOTE | 2020-02-17 16:40 | NUR ---
TO AMB SURG FROM PAR PER CART. ALERT, DENIES PAIN. SKIN AFFIX INTACT TO X3 LAP ABD SURGICAL SITES, ICE PACK ON. PO FLUIDS PROVIDED.
[2020-02-17] MEDS ORDERED: HYDROcodone/APAP 5 MG/325 MG (LORTAB) TAB PO ONE (17:15)
--- NOTE | 2020-02-17 17:15 | NUR ---
RATES ABD SURGICAL SITE PAIN 5. LORTAB 5 MG, ONE TAB, GIVEN PO.
--- NOTE | 2020-02-17 17:44 | NUR ---
REMAINS ALERT, NO CHANGE IN SITE ASSESSMENT. REQUESTING DISMISSAL. PAIN RATE 4.
--- NOTE | 2020-02-17 18:16 | NUR ---
HAS VOIDED 500 CC CLEAR YELLOW URINE. WAITING ON STAFF/FISHER POUND NET OR TRAP FROM [facility] FOR TRANSPORT.
== END 2020-02-17 18:25 | disposition home or self-care (01) ==
LOC: SDC 07:23
PROVIDERS: ATTEND Surgery
DX: K41.30 Unilateral femoral hernia, with obstruction, without gangrene, not specified as recurrent (principal); K40.00 Bilateral inguinal hernia, with obstruction, without gangrene, not specified as recurrent; F41.9 Anxiety disorder, unspecified; F32.9 Major depressive disorder, single episode, unspecified; F20.9 Schizophrenia, unspecified; F17.210 Nicotine dependence, cigarettes, uncomplicated; Z79.899 Other long term (current) drug therapy; Z80.0 Family history of malignant neoplasm of digestive organs
CPT/HCPCS: 49650; 49659; 80306; C1781 ×2

== ENCOUNTER → 2020-04-06 | Outpatient (CLI) | payer MEDICARE ==
[~2020-04-06] MED LIST changes: +HOLD METFORMIN - RECEIVED CONTRAST 20 ML VIAL IV SCH; +HYDR-4226 PO; +IOHEXOL 350 MG/ML 100 ML (OMNIPAQUE 350) VIAL IV ONE; +NS 100 ML (IVPB) BAG IV ONE
[2020-04-06 14:27] LABS: CREATININE SERUM 0.91 MG/DL (0.60-1.30); GFR ESTIMATED > 60
[2020-04-06 14:28] LABS: BUN/CREATININE RATIO 10
--- NOTE | 2020-04-06 16:16 | Diagnostic Imaging Report ---
PROCEDURE: CT abdomen and pelvis with contrast. TECHNIQUE: Multiple contiguous axial images were obtained through the abdomen and pelvis after administration of intravenous contrast. Auto Exposure Controls were utilized during the CT exam to meet ALARA standards for radiation dose reduction. All CT scans use one or more of the following dose optimizing techniques: automated exposure control, MA and/or KvP adjustment based on patient size and exam type or iterative reconstruction. INDICATION: Inguinal hernia. COMPARISON: No prior examinations are available for comparison. FINDINGS: The vertically oriented tubular fluid extends from the deep left inguinal ring inferiorly into the left hemiscrotum where there is a partially visualized left-sided hydrocele. No herniation of viscus is present. This is presumed incomplete obliteration of the processus vaginalis. In axial plane just above the hemiscrotum, this measures 5.6 cm transverse x 5.8 cm AP with the process extending a cephalocaudal length of about 10 cm. On the right, a similar but incomplete cystic structure measures a diameter of 2.2 cm and terminates above the scrotum. No herniation of viscus. The anterior abdominal wall appears otherwise normal. There is a right hepatic lobe cyst. The gallbladder is normal. No bile duct dilatation. The spleen, adrenals, and pancreas are unremarkable. The kidneys are unobstructed with a simple cyst as a benign finding off the lower pole of the left kidney noted. There is no bowel obstruction or ileus. There is air within the nondilated and nonacute appendix. There are a few noninflamed sigmoid diverticula. The urinary bladder was nearly empty at this study. There is a probable previous TUR defect within the central prostate. The osseous structures are nonacute. IMPRESSION: 1. No herniation of viscus. The left-sided vertically oriented tubular fluid structure in the deep inguinal ring extends into the fluid-containing scrotal sac on the left, likely reflective of sequelae of failure of closure of the processus vaginalis. A similar but incomplete finding on the right is noted. 2. No bowel, biliary, or urinary tract obstruction. Noninflamed diverticulosis. Probable previous TUR to the prostate. Benign hepatorenal cyst. Dictated by: Dictated on workstation # [id number]
== END ==
LOC: RAD 13:50
PROVIDERS: ATTEND Surgery
DX: K40.90 Unilateral inguinal hernia, without obstruction or gangrene, not specified as recurrent (principal); K76.89 Other specified diseases of liver; N28.1 Cyst of kidney, acquired
CPT/HCPCS: 36415; 74177; 82565; 84520

== ENCOUNTER 2020-07-19 02:19 | Emergency (ER) | payer MEDICARE ==
[~2020-07-19 02:19] MED LIST changes: -HOLD METFORMIN - RECEIVED CONTRAST 20 ML VIAL IV SCH; -IOHEXOL 350 MG/ML 100 ML (OMNIPAQUE 350) VIAL IV ONE; -NS 100 ML (IVPB) BAG IV ONE
== END 2020-07-19 03:27 | disposition left against medical advice (07) ==
LOC: EDUNIT# 02:19 → ER 02:21
DX: T78.40XA Allergy, unspecified, initial encounter (principal)

== ENCOUNTER 2020-09-07 20:12 | Observation (INO) | payer MEDICARE ==
[~2020-09-07] VITALS: Ht 177.8 cm; Wt 65.9 kg
[2020-09-07 20:41] LABS: BASOPHILS # (AUTO) 0.1 10^3/uL (0.0-0.1); BASOPHILS % (AUTO) 1 % (0-10); EOSINOPHILS # (AUTO) 0.2 10^3/uL (0.0-0.3); EOSINOPHILS % (AUTO) 2 % (0-10); HEMATOCRIT 45 % (40-54); HEMOGLOBIN 15.5 g/dL (13.3-17.7); LYMPHOCYTES % (AUTO) 21 % (12-44); MEAN CORPUSCULAR HEMOGLOBIN 31 pg (25-34); MEAN CORPUSCULAR HGB CONC 35 g/dL (32-36); MEAN CORPUSCULAR VOLUME 89 fL (80-99); MEAN PLATELET VOLUME 10.9 fL (9.0-12.2); MONOCYTES # (AUTO) 1.1 10^3/uL (0.0-1.0); MONOCYTES % (AUTO) 12 % (0-12); NEUTROPHILS # (AUTO) 6.1 10^3/uL (1.8-7.8); NEUTROPHILS % (AUTO) 65 % (42-75); PLATELET COUNT 349 10^3/uL (130-400); WHITE BLOOD COUNT 9.4 10^3/uL (4.3-11.0)
--- NOTE | 2020-09-07 20:43 | ED Psychosocial ---
General Chief Complaint: Suicidal Ideation Risk Stated Complaint: SUICIDAL IDEATIONS History of Present Illness Date Seen by Provider: Sep 07, 2020 Time Seen by Provider: 20:30 Initial Comments 65-year-old male presents via EMS after a 911 call with suicidal ideations. The patient has longstanding history of bipolar disorder and was recently inpatient at [facility] in [facility], he was discharged 4 days ago. He reports 2 weeks ago trying to overdose on heroin and methamphetamine and being taken to [place]. He denies any drug use since that attempt. He is on lithium for his bipolar disorder and reports taking none since discharge 4 days ago. He reports relationship issues with his daughter that has pushed him over the edge wanting him to kill himself. He reports "I have no reason to live, if I go home, I am killing myself" He denies any auditory or visual hallucinations. He denies having any access to drugs but has friends who will bring them to him. He has been inpatient at several facilities in the last few years: [facility], [facility], and was placed a few months ago in [facility] by [facility]. Timing/Duration: getting worse Severity: mild Associated Symptoms: impaired concentration, suicidal ideation Allergies and Home Medications Allergies Coded Allergies: No Known Drug Allergies (Unverified , 01/04/19) Home Medications Citalopram Hydrobromide 20 Mg Tablet, 40 MG PO DAILY, (Reported) Hydrocodone/Acetaminophen 1 Each Tablet, 1 TAB PO Q6H Prescribed by: AYSE MOON on 02/17/20 1553 [place] Carbonate 300 Mg Tablet, 300 MG PO TID, (Reported) Trazodone HCl 100 Mg Tablet, 100 MG PO HS, (Reported) Patient Home Medication List Home Medication List Reviewed: Yes Review of Systems Constitutional: no symptoms reported, see HPI Respiratory: no symptoms reported, see HPI Cardiovascular: no symptoms reported, see HPI Gastrointestinal: no symptoms reported, see HPI Genitourinary: no symptoms reported, see HPI Psychiatric/Neurological: See HPI, Depressed, Emotional Problems All Other Systems Reviewed Negative Unless Noted: Yes Past Gdgzmfu-Mvlypf-Rcieke Hx Past Med/Social Hx: Reviewed Nursing Past Med/Soc Hx Patient Social History Drug of Choice: meth Type Used: Cigarettes 2nd Hand Smoke Exposure: No Recent Hopitalizations: No Immunizations Up To Date Tetanus Booster (TDap): Unknown Seasonal Allergies Seasonal Allergies: Yes Past Medical History Surgeries: Yes (lymph node removed ) Prostatectomy Respiratory: No Cardiac: No Neurological: No Genitourinary: Yes Benign Prostatic Hyperpl, Prostate Problems Gastrointestinal: Yes (INGUINAL HERNIA) Musculoskeletal: No Endocrine: No HEENT: No Cancer: No Psychosocial: Yes ("BIPOLAR TYPE 2, SCHIZOID NO DILUSIONS") Sleep Difficulties, Anxiety, Bipolar, Depression Integumentary: No Blood Disorders: No Physical Exam Vital Signs - First Documented 09/07/20 20:15 Temp 36.5 Pulse 93 Resp 18 B/P (MAP) 142/94 (110) Pulse Ox 98 O2 Delivery Room Air Capillary Refill : Height, Weight, BMI Height: 5'10.00" Weight: 150lbs. oz. 68.235323bs; 24.80 BMI Method:Stated General Appearance: mild distress HEENT: PERRL/EOMI, normal ENT inspection, TMs normal, pharynx normal Neck: non-tender, full range of motion, supple, normal inspection Respiratory: chest non-tender, lungs clear, normal breath sounds Cardiovascular: normal peripheral pulses, regular rate, rhythm Gastrointestinal: normal bowel sounds, non tender, soft Neurologic/Psychiatric: no motor/sensory deficits, alert, normal mood/affect, oriented x 3 Appearance/Memory: appropriate appearance, appropriate insight, neat, no memory impairment Behavior/Eye Contact: cooperative, good eye contact, normal speech Thoughts/Hallucinations: normal thought pattern, no apparent hallucination Skin: normal color, warm/dry Progress/Results/Core Measures Results/Orders Lab Results Laboratory Tests Test 09/07/20 20:25 09/07/20 20:50 09/07/20 21:19 Range/Units White Blood Count 9.4 4.3-11.0 10^3/uL Red Blood Count 5.03 4.30-5.52 10^6/uL Hemoglobin 15.5 13.3-17.7 g/dL Hematocrit 45 40-54 % Mean Corpuscular Volume 89 80-99 fL Mean Corpuscular Hemoglobin 31 25-34 pg Mean Corpuscular Hemoglobin Concent 35 32-36 g/dL Red Cell Distribution Width 13.0 10.0-14.5 % Platelet Count 349 130-400 10^3/uL Mean Platelet Volume 10.9 9.0-12.2 fL Immature Granulocyte % (Auto) 0 % Neutrophils (%) (Auto) 65 42-75 % Lymphocytes (%) (Auto) 21 12-44 % Monocytes (%) (Auto) 12 0-12 % Eosinophils (%) (Auto) 2 0-10 % Basophils (%) (Auto) 1 0-10 % Neutrophils # (Auto) 6.1 1.8-7.8 10^3/uL Lymphocytes # (Auto) 2.0 1.0-4.0 10^3/uL Monocytes # (Auto) 1.1 H 0.0-1.0 10^3/uL Eosinophils # (Auto) 0.2 0.0-0.3 10^3/uL Basophils # (Auto) 0.1 0.0-0.1 10^3/uL Immature Granulocyte # (Auto) 0.0 0.0-0.1 10^3/uL Sodium Level 138 135-145 MMOL/L Potassium Level 4.2 3.6-5.0 MMOL/L Chloride Level 104 98-107 MMOL/L Carbon Dioxide Level 21 21-32 MMOL/L Anion Gap 13 5-14 MMOL/L Blood Urea Nitrogen 16 7-18 MG/DL Creatinine 1.28 0.60-1.30 MG/DL Estimat Glomerular Filtration Rate 56 BUN/Creatinine Ratio 13 Glucose Level 120 H 70-105 MG/DL Calcium Level 9.8 8.5-10.1 MG/DL Corrected Calcium 8.5-10.1 MG/DL Total Bilirubin 0.4 0.1-1.0 MG/DL Aspartate Amino Transf (AST/SGOT) 32 5-34 U/L Alanine Aminotransferase (ALT/SGPT) 20 0-55 U/L Alkaline Phosphatase 88 40-136 U/L Total Protein 7.8 6.4-8.2 GM/DL Albumin 4.8 H 3.2-4.5 GM/DL TSH [place] Testing 2.92 0.35-4.94 UIU/ML Salicylates Level < 5.0 L 5.0-20.0 MG/DL Acetaminophen Level < 10 L 10-30 UG/ML Serum Alcohol < 10 <10 MG/DL Urine Color DARK YELLOW Urine Clarity CLEAR Urine pH 5.5 5-9 Urine Specific [place] >=1.030 1.016-1.022 Urine Protein 1+ H NEGATIVE Urine Glucose (UA) NEGATIVE NEGATIVE Urine Ketones NEGATIVE NEGATIVE Urine Nitrite NEGATIVE NEGATIVE Urine Bilirubin 1+ H NEGATIVE Urine Urobilinogen 1.0 < = 1.0 MG/DL Urine Leukocyte Esterase NEGATIVE NEGATIVE Urine RBC (Auto) NEGATIVE NEGATIVE Urine RBC NONE /HPF Urine WBC 2-5 /HPF Urine Crystals PRESENT H /LPF Urine Amorphous Sediment FEW HECTOR URATES H /LPF Urine Bacteria TRACE /HPF Urine Casts PRESENT /LPF Urine Hyaline Casts 25-50 H /LPF Urine Mucus NEGATIVE /LPF Urine Culture Indicated NO Urine Opiates Screen NEGATIVE NEGATIVE Urine Oxycodone Screen NEGATIVE NEGATIVE Urine Methadone Screen NEGATIVE NEGATIVE Urine Propoxyphene Screen NEGATIVE NEGATIVE Urine Barbiturates Screen NEGATIVE NEGATIVE Ur Tricyclic Antidepressants Screen NEGATIVE NEGATIVE Urine Phencyclidine Screen NEGATIVE NEGATIVE Urine Amphetamines Screen NEGATIVE NEGATIVE Urine Methamphetamines Screen NEGATIVE NEGATIVE Urine Benzodiazepines Screen NEGATIVE NEGATIVE Urine Cocaine Screen NEGATIVE NEGATIVE Urine Cannabinoids Screen NEGATIVE NEGATIVE Coronavirus 2019 (BAY) Negative Not Detecte My Orders Orders - MARIJA,ELIGIO CONCRETE BLOCK [place]ON Ua Culture If Indicated (09/07/20 20:18) Cbc With Automated Diff (09/07/20 20:18) Comprehensive Metabolic Panel (09/07/20 20:18) Alcohol (09/07/20 20:18) Drug Screen Stat (Urine) (09/07/20 20:18) Acetaminophen (09/07/20 20:18) Salicylate (09/07/20 20:18) Ekg Tracing (09/07/20 20:18) Ed Iv/Invasive Line Start (09/07/20 20:18) Thyroid Analyzer (09/07/20 20:18) Monitor-Rhythm Ecg Trace Only (09/07/20 20:18) Bh Status Checks/Observation Q15M (09/07/20 20:18) Ed Iv/Invasive Line Start (09/07/20 20:18) [place] Level (09/07/20 20:45) Covid 19 Inhouse Test (09/07/20 21:30) Zolpidem Tablet (Ambien Tablet) (09/07/20 22:15) Hydroxyzine Cap/Tab (Vistaril) (09/07/20 22:15) Hydroxyzine Cap/Tab (Vistaril) (09/07/20 22:04) Medications Given in ED Current Medications Medications Dose Ordered Sig/Christopher Route Start Time Stop Time Status Last Admin Dose Admin Hydroxyzine Pamoate 25 mg ONCE ONCE PO 09/07/20 22:15 09/07/20 22:16 DC 09/07/20 22:20 25 MG Zolpidem Tartrate 5 mg ONCE ONCE PO 09/07/20 22:15 09/07/20 22:16 DC 09/07/20 22:20 5 MG Vital Signs/I&O 09/07/20 20:15 Temp 36.5 Pulse 93 Resp 18 B/P (MAP) 142/94 (110) Pulse Ox 98 O2 Delivery Room Air Progress Progress Note : Time: 20:30 Progress Note pt seen and evaluated. Will obtain labs, EKG and attempt to make transfer plans. 2044 Called for Screen [id number], they will have screener evaluate patient via tele-visit, when available. 2049 [place] no beds; [facility] no beds at [facility] or [place]. [facility], no beds but willing to put him on their wait list after Mental Health Screen and H and P/Labs faxed. 2129 patient has remained calm and cooperative, no requests. 2144 [place] mental health screener [place], spoke to this provider. Then joined Zoom to tele-screen patient. 2199 Spoke to Quincy, she screened patient and did not report being suicidal, he is afraid at home that he will start using drugs again and then Overdose. She is trying to reach out to family members to see about a safety plan and follow up with [facility]. He is also willing to do voluntary inpatient rehab for drug addictions. She will try to make a plan and call this facility back. report given to Dr. Chery. 2209 [place] returned call, she has placement for 0809/08/20 at [facility] in [place]. She will fax her screening report and the plan for placement. Spoke to patient, he is agreeable. Spoke to Dr. Strickland, agreeable with admission. Social Work consult for morning, to arrange transfer. Will need sitter in room, as he has been in and out of bed, coming to door, but no attempts to elope. Initial ECG Impression Date: Sep 07, 2020 Initial ECG Impression Time: 20:29 Initial ECG Rate: 103 Initial ECG Rhythm: S.Tach Initial ECG Intervals: Normal Initial ECG Intervals ID [id number], QRSD 86, QT 340, QTc 445. [place] P 63, QRS 56, T 47. Initial ECG Impression: Normal Initial ECG Comparisson: Unchanged Transfer of Care Time: 22:00 Care transferred to: Dr. Chery, report given. Departure Impression Primary Impression: Bipolar 1 disorder, depressed, moderate Additional Impressions: Suicidal ideations Polysubstance abuse Disposition: ADMITTED INPATIENT Condition: Stable Admissions Decision to Admit Reason: Admit from ER (General) Decision to Admit/Date: Sep 07, 2020 Time/Decision to Admit Time: 22:00 Departure-Patient Inst. Referrals: [facility] (PCP/Family) Primary Care Physician Patient Instructions: OUTPT MENTAL HEALTH SERVICES ELIGIO DUTTON Sep 07, 2020 20:42
[2020-09-07 21:00] LABS: CLARITY,URINE CLEAR; COLOR,URINE DARK YELLOW; GLUCOSE, URINE (UA) NEGATIVE (NEGATIVE); KETONES,URINE NEGATIVE (NEGATIVE); LEUKOCYTE ESTERASE ,URINE NEGATIVE (NEGATIVE); NITRITE,URINE NEGATIVE (NEGATIVE); PH,URINE 5.5 (5-9); PROTEIN,URINE 1+ (NEGATIVE)
[2020-09-07 21:05] LABS: ALANINE AMINOTRANSFERASE 20 U/L (0-55); ALBUMIN 4.8 GM/DL (3.2-4.5); ALKALINE PHOSPHATASE 88 U/L (40-136); BILIRUBIN,TOTAL 0.4 MG/DL (0.1-1.0); BUN/CREATININE RATIO 13; CALCIUM 9.8 MG/DL (8.5-10.1); CARBON DIOXIDE 21 MMOL/L (21-32); CHLORIDE 104 MMOL/L (98-107); CREATININE SERUM 1.28 MG/DL (0.60-1.30); GFR ESTIMATED 56; GLUCOSE 120 MG/DL (70-105); POTASSIUM 4.2 MMOL/L (3.6-5.0); SALICYLATE < 5.0 MG/DL (5.0-20.0); SODIUM 138 MMOL/L (135-145); TOTAL PROTEIN 7.8 GM/DL (6.4-8.2)
[2020-09-07 21:09] LABS: ACETAMINOPHEN < 10 UG/ML (10-30)
[2020-09-07 21:28] LABS: BILIRUBIN,URINE 1+ (NEGATIVE); HYALINE CASTS, URINE 25-50 /LPF
[2020-09-07 21:30] LABS: AMORPHOUS SEDIMENT,UR FEW AMOR URATES /LPF; BACTERIA,URINE TRACE /HPF
[2020-09-07 21:41] LABS: AMPHETAMINE SCREEN, URINE NEGATIVE (NEGATIVE); BARBITURATE SCREEN URINE NEGATIVE (NEGATIVE); BENZODIAZEPINES SCREEN URINE NEGATIVE (NEGATIVE); CANNABINOID SCREEN, URINE NEGATIVE (NEGATIVE); COCAINE SCREEN URINE NEGATIVE (NEGATIVE); METHADONE STAT NEGATIVE (NEGATIVE); METHAMPHETAMINE SCREEN URINE S NEGATIVE (NEGATIVE); OPIATE SCREEN URINE NEGATIVE (NEGATIVE); OXYCODONE STAT NEGATIVE (NEGATIVE); PROPOXYPHENE STAT NEGATIVE (NEGATIVE); TRICYCLIC ANTIDEPRESSANTS SCRE NEGATIVE (NEGATIVE)
[2020-09-07] MEDS ORDERED: hydrOXYzine (VISTARIL/ATARAX) 25 MG capsule/tablet ONE (22:04)
[2020-09-07] MEDS ORDERED: ZOLPIDEM 5 MG (AMBIEN) TAB PO ONE (22:15)
[2020-09-07] MEDS ORDERED: hydrOXYzine (VISTARIL/ATARAX) 25 MG capsule/tablet PO ONE (22:15)
[2020-09-07 23:15] VITALS: BP 109/77
[2020-09-07] MEDS ORDERED: ONDANSETRON 4 MG (ZOFRAN) ORAL DISSOLVE TAB PO PRN (23:45)
[2020-09-07] MEDS ORDERED: ACETAMINOPHEN 325 MG TABLET PO PRN (23:45)
[2020-09-08] MEDS: LORazepam 1 MG (ATIVAN) TAB PO PRN ×4 (03:36→20:53)
[2020-09-08 04:00] VITALS: BP 105/66
[2020-09-08] MEDS: LITHIUM CARBONATE 300 MG TABLET PO SCH ×3 (04:39→20:33)
[2020-09-08 07:47] VITALS: BP 100/61
[2020-09-08] MEDS ORDERED: LITH300C PO (10:51)
--- NOTE | 2020-09-08 11:19 | History & Physical ---
BLANK SCHMID,MED STUDENT 09/08/20 1119: HPI History of Present Illness: Upon interview patient is moderately conversational, but slightly somnolent. He reports that since he left [place] a few days ago he has had suicidal ideations of overdosing on heroin, and reports he didn't have immediate access but could obtain it. Still reporting SI today with same plan and intent to act. Reports he feels safe while in hospital currently. Denies any illegal drug use since his reported attempt to overdose on heroin/meth a few weeks ago, which resulted in being inpatient at [place]. Unable to state any precipitating factors that led to his mood feeling down. Reports he has been sleeping well, denies racing thoughts. Denies any auditory/visual hallucinations/paranoia. Physically he denies any pain, reports he feels a little more tired than usual but no specific concerns. Source: patient Exam Limitations: no limitations Attending Physician Tom Strickland MD [facility] Consult Date of Admission Sep 07, 2020 at 22:30 Home Medications Home Medications Reviewed patient Home Medication Reconciliation performed by pharmacy medication reconciliations manufacturing plant technician and/or nursing. Patients Allergies have been reviewed. Allergies Coded Allergies: No Known Drug Allergies (Unverified , 01/04/19) HSE-Thfbfk-Qwbmow Hx Patient Social History Drug of Choice: METHAMPHETAMINE, HEROIN Smoking Status: Former Smoker (reports last use 2 weeks ago) 2nd Hand Smoke Exposure: No Recent Hopitalizations: No Alcohol Use?: No (reports last use 2 weeks ago) Substance type: Methamphetamine Have you traveled recently?: No Immunizations Up To Date Tetanus Booster (TDap): Unknown Date of Influenza Vaccine: Feb 10, 2021 Past Medical History MDD Bipolar Hx Drug Use (Heroin/Methamphetamine) Anxiety Inguinal Hernia Prostatectomy/BPH Family Medical History Significant Family History: No Pertinent Family Hx Review of Systems (CHC) Constitutional: No chills, No diaphoresis, No fever, No weakness; other (mild fatigue) EENTM: No hearing loss, No vision loss, No nose congestion Respiratory: No cough, No short of breath Cardiovascular: No chest pain, No edema Gastrointestinal: No abdominal pain Genitourinary: No dysuria, No frequency Musculoskeletal: No muscle pain Skin: no symptoms reported Psychiatric/Neurological: See HPI Reviewed Test Results Reviewed Test Results Lab Laboratory Tests Test 09/07/20 20:25 09/07/20 20:50 09/07/20 21:19 Range/Units White Blood Count 9.4 4.3-11.0 10^3/uL Red Blood Count 5.03 4.30-5.52 10^6/uL Hemoglobin 15.5 13.3-17.7 g/dL Hematocrit 45 40-54 % Mean Corpuscular Volume 89 80-99 fL Mean Corpuscular Hemoglobin 31 25-34 pg Mean Corpuscular Hemoglobin Concent 35 32-36 g/dL Red Cell Distribution Width 13.0 10.0-14.5 % Platelet Count 349 130-400 10^3/uL Mean Platelet Volume 10.9 9.0-12.2 fL Immature Granulocyte % (Auto) 0 % Neutrophils (%) (Auto) 65 42-75 % Lymphocytes (%) (Auto) 21 12-44 % Monocytes (%) (Auto) 12 0-12 % Eosinophils (%) (Auto) 2 0-10 % Basophils (%) (Auto) 1 0-10 % Neutrophils # (Auto) 6.1 1.8-7.8 10^3/uL Lymphocytes # (Auto) 2.0 1.0-4.0 10^3/uL Monocytes # (Auto) 1.1 H 0.0-1.0 10^3/uL Eosinophils # (Auto) 0.2 0.0-0.3 10^3/uL Basophils # (Auto) 0.1 0.0-0.1 10^3/uL Immature Granulocyte # (Auto) 0.0 0.0-0.1 10^3/uL Sodium Level 138 135-145 MMOL/L Potassium Level 4.2 3.6-5.0 MMOL/L Chloride Level 104 98-107 MMOL/L Carbon Dioxide Level 21 21-32 MMOL/L Anion Gap 13 5-14 MMOL/L Blood Urea Nitrogen 16 7-18 MG/DL Creatinine 1.28 0.60-1.30 MG/DL Estimat Glomerular Filtration Rate 56 BUN/Creatinine Ratio 13 Glucose Level 120 H 70-105 MG/DL Calcium Level 9.8 8.5-10.1 MG/DL Corrected Calcium 8.5-10.1 MG/DL Total Bilirubin 0.4 0.1-1.0 MG/DL Aspartate Amino Transf (AST/SGOT) 32 5-34 U/L Alanine Aminotransferase (ALT/SGPT) 20 0-55 U/L Alkaline Phosphatase 88 40-136 U/L Total Protein 7.8 6.4-8.2 GM/DL Albumin 4.8 H 3.2-4.5 GM/DL TSH [place] Testing 2.92 0.35-4.94 UIU/ML Salicylates Level < 5.0 L 5.0-20.0 MG/DL Acetaminophen Level < 10 L 10-30 UG/ML Serum Alcohol < 10 <10 MG/DL Urine Color DARK YELLOW Urine Clarity CLEAR Urine pH 5.5 5-9 Urine Specific [place] >=1.030 1.016-1.022 Urine Protein 1+ H NEGATIVE Urine Glucose (UA) NEGATIVE NEGATIVE Urine Ketones NEGATIVE NEGATIVE Urine Nitrite NEGATIVE NEGATIVE Urine Bilirubin 1+ H NEGATIVE Urine Urobilinogen 1.0 < = 1.0 MG/DL Urine Leukocyte Esterase NEGATIVE NEGATIVE Urine RBC (Auto) NEGATIVE NEGATIVE Urine RBC NONE /HPF Urine WBC 2-5 /HPF Urine Crystals PRESENT H /LPF Urine Amorphous Sediment FEW HECTOR URATES H /LPF Urine Bacteria TRACE /HPF Urine Casts PRESENT /LPF Urine Hyaline Casts 25-50 H /LPF Urine Mucus NEGATIVE /LPF Urine Culture Indicated NO Urine Opiates Screen NEGATIVE NEGATIVE Urine Oxycodone Screen NEGATIVE NEGATIVE Urine Methadone Screen NEGATIVE NEGATIVE Urine Propoxyphene Screen NEGATIVE NEGATIVE Urine Barbiturates Screen NEGATIVE NEGATIVE Ur Tricyclic Antidepressants Screen NEGATIVE NEGATIVE Urine Phencyclidine Screen NEGATIVE NEGATIVE Urine Amphetamines Screen NEGATIVE NEGATIVE Urine Methamphetamines Screen NEGATIVE NEGATIVE Urine Benzodiazepines Screen NEGATIVE NEGATIVE Urine Cocaine Screen NEGATIVE NEGATIVE Urine Cannabinoids Screen NEGATIVE NEGATIVE Coronavirus 2019 (BAY) Negative Not Detecte Physical Exam-(CHC) Physical Exam Vital Signs VS - Last 72 Hours, by Label 09/07/20 09/07/20 09/07/20 09/07/20 20:15 23:10 23:15 23:15 Temp 36.5 36.6 36.3 Pulse 93 82 98 Resp 18 17 18 B/P (MAP) 142/94 (110) 108/82 (110) 109/77 (88) Pulse Ox 98 96 95 95 O2 Delivery Room Air Room Air Room Air 09/08/20 09/08/20 09/08/20 04:00 07:47 08:00 Temp 36.6 36.5 Pulse 88 93 Resp 18 15 B/P (MAP) 105/66 (79) 100/61 (74) Pulse Ox 96 98 O2 Delivery Room Air Room Air Capillary Refill : Less Than 3 Seconds General Appearance: no apparent distress Eyes: Bilateral Eye Normal Inspection HEENT: No scleral icterus (R), No scleral icterus (L) Neck: non-tender, full range of motion, normal inspection Respiratory: lungs clear, normal breath sounds, no respiratory distress Cardiovascular: regular rate, rhythm, no edema, no JVD Gastrointestinal: normal bowel sounds, non tender, soft Back: normal inspection Extremities: normal range of motion Neurologic/Psychiatric: depressed affect Skin: normal color Assessment/Plan Assessment/Plan (1) Suicidal ideations Status: Acute Assessment & Plan: Patient with plans to overdose, looking for inpatient placement. Currently on [place] as still reporting SI while in the hospital. (2) Bipolar 1 disorder, depressed, moderate Status: Chronic Assessment & Plan: Patient with normal sleep, regular speech rate/rhythm, denies racing thoughts. No current signs of alee, continue TANK DRIVER [place]a. (3) Polysubstance abuse Status: Chronic Assessment & Plan: Patient reports plan to overdose on heroin, denies any use since psych admission 2 weeks ago. (4) Depression Status: Acute Assessment & Plan: Continue TANK DRIVER Celexa. Qualifiers: TOM STRICKLAND MD 09/08/20 1429: HPI History of Present Illness: Time Seen by Provider: 09:10 Home Medications Allergies Coded Allergies: No Known Drug Allergies (Unverified , 01/04/19) Assessment/Plan Assessment/Plan Admission Status: Observation Supervisory-Addendum Brief Verification & Attestation Participated in pt care: history, MDM, physical Personally performed: exam, history, MDM Care discussed with: Medical Student Procedures: n/a I personally saw and examined patient and did my own history and exam which agree with that documented by the medical student. I directed the plan of care as documented. BLANK SCHMID,MED STUDENT Sep 08, 2020 11:19 TOM STRICKLAND MD Sep 08, 2020 14:29
[2020-09-08 12:04] VITALS: BP 91/57
[2020-09-08 15:06] VITALS: BP 97/57
[2020-09-08 19:00] VITALS: BP 90/54
[2020-09-08] MEDS ORDERED: CITA20TA9 PO (20:24)
[2020-09-08 23:43] VITALS: BP 111/77
[2020-09-09 03:23] VITALS: BP 124/77
[2020-09-09] MEDS: LORazepam 1 MG (ATIVAN) TAB PO PRN (03:35)
[2020-09-09 07:46] VITALS: BP 93/57
[2020-09-09] MEDS: LITHIUM CARBONATE 300 MG TABLET PO SCH (08:21)
--- NOTE | 2020-09-09 08:25 | Discharge Summary ---
Discharge Inst-[facility] Discharge Medications New, Converted or Re-Newed RX: Transmitted to Pharmacy New Medications: Citalopram Hydrobromide (Citalopram HBr) 20 Mg Tablet 20 MG PO DAILY, #30 TAB 0 Refills Continued Medications: [place] Carbonate ([place] Carbonate) 300 Mg Capsule 300 MG PO BID, CAP Patient Instructions Patient Instructions Prescriptions will be delivered by [facility] pharmacy to [facility] today. Goal/Follow Up Appt: Follow up after discharge from [facility]. Return to The Hospital For: Fever, shortness of breath, chest pain Activity & Diet Discharge Diet: No Restrictions Activity as Tolerated: Yes TOM JULIEN MD Sep 09, 2020 08:25
--- NOTE | 2020-09-09 13:23 | Discharge Summary ---
Discharge Summary Hospital Course Problems/Diagnosis: (1) Suicidal ideations Status: Acute Assessment & Plan: Patient with plans to overdose, looking for inpatient p lacement. Currently on CO as still reporting SI while in the hospital. Discharged to [facility] (2) Bipolar 1 disorder, depressed, moderate Status: Chronic Assessment & Plan: Patient with normal sleep, regular speech rate/rhythm, denies racing thoughts. No current signs of alee, continue TRAFFIC MONITOR SPECIALIST Rif[place]. [place]if[place] and citalopram to be delivered to [facility] for patient on discharge. (3) Polysubstance abuse Status: Chronic Assessment & Plan: Patient reports plan to overdose on heroin, denies any use since psych admission 2 weeks ago. (4) Depression Status: Acute Assessment & Plan: Continue TRAFFIC MONITOR SPECIALIST Celexa. Qualifiers: Hospital Course Date of Admission: Sep 07, 2020 at 22:30 Admission Diagnosis : Family Physician/Provider: [place] Date of Discharge: 09/09/20 Discharge Diagnosis: See problem list Hospital Course: See problem list Labs and Pending Lab Test: Home Meds Active Citalopram HBr (Citalopram Hydrobromide) 20 Mg Tablet 20 Mg PO DAILY Reported [place] Carbonate 300 Mg Capsule 300 Mg PO BID Assessment/Pt DC Instructions Follow up at [facility] after d/c from [facility]. Discharge Diet: No Restrictions Discharge Physical Examination Allergies: Coded Allergies: No Known Drug Allergies (Unverified , 01/04/19) General Appearance: No Apparent Distress, WD/WN Respiratory: Lungs Clear, Normal Breath Sounds Cardiovascular: Regular Rate, Rhythm, No Murmur Extremity: No Pedal Edema Skin: Normal Color, Warm/Dry Neurologic/Psychiatric: Alert, Depressed Affect TOM JULIEN MD Sep 09, 2020 13:23
== END 2020-09-09 09:14 ==
LOC: EDUNIT# 20:12 → ER 20:13 → UNDOADMOB 22:30 → 4TH 22:30 → UNDODISOB 09-09 09:10
PROVIDERS: ADMIT Family Medicine; ATTEND Family Medicine
DX: R45.851 Suicidal ideations (principal); F32.9 Major depressive disorder, single episode, unspecified; F19.10 Other psychoactive substance abuse, uncomplicated; F41.9 Anxiety disorder, unspecified; N40.0 Benign prostatic hyperplasia without lower urinary tract symptoms; K40.90 Unilateral inguinal hernia, without obstruction or gangrene, not specified as recurrent; F17.210 Nicotine dependence, cigarettes, uncomplicated; Z79.899 Other long term (current) drug therapy; Z20.822 Contact with and (suspected) exposure to COVID-19
CPT/HCPCS: 80053; 80178; 80306; 81000; 84443; 85025; 93005; 99283; G0378; G0480 ×3; U0002; 36415; 80320; 80329; 87635

== ENCOUNTER 2020-09-23 19:34 | Emergency (ER) | payer MEDICARE ==
[~2020-09-23] VITALS: Ht 177.8 cm; Wt 69.3 kg
[~2020-09-23 19:34] MED LIST changes: +LITH300C PO
[2020-09-23 20:01] LABS: BASOPHILS # (AUTO) 0.1 10^3/uL (0.0-0.1); BASOPHILS % (AUTO) 1 % (0-10); EOSINOPHILS # (AUTO) 0.3 10^3/uL (0.0-0.3); EOSINOPHILS % (AUTO) 3 % (0-10); HEMATOCRIT 38 % (40-54); HEMOGLOBIN 13.5 g/dL (13.3-17.7); LYMPHOCYTES # (AUTO) 1.7 10^3/uL (1.0-4.0); LYMPHOCYTES % (AUTO) 17 % (12-44); MEAN CORPUSCULAR HEMOGLOBIN 32 pg (25-34); MEAN CORPUSCULAR HGB CONC 35 g/dL (32-36); MEAN CORPUSCULAR VOLUME 89 fL (80-99); MEAN PLATELET VOLUME 9.9 fL (9.0-12.2); MONOCYTES # (AUTO) 0.8 10^3/uL (0.0-1.0); MONOCYTES % (AUTO) 8 % (0-12); NEUTROPHILS # (AUTO) 7.2 10^3/uL (1.8-7.8); NEUTROPHILS % (AUTO) 72 % (42-75); PLATELET COUNT 306 10^3/uL (130-400)
--- NOTE | 2020-09-23 20:07 | ED Psychosocial ---
General Chief Complaint: Suicidal Ideation Risk Source: patient (PT GIVES CONFLICTING INFORMATION), old records History of Present Illness Date Seen by Provider: September 23, 2020 Time Seen by Provider: 19:35 Initial Comments PT ARRIVES VIA EMS--WALKS INTO ER ON HIS OWN FROM THE AMBULANCE. PT STATES HE IS "HAVING SUICIDAL IDEATIONS AND HAS PTSD" PT STATES HE HAS BEEN FEELING SUICIDAL FOR THE LAST COUPLE OF DAYS STATES HE HAS THOUGHT ABOUT WALKING OUT INTO TRAFFIC OR OVERDOSING ON FENTANYL. STATES HE DOES NOT HAVE FENTANYL IN HIS POSSESSION, "BUT I HAVE ACCESS TO IT" PT DENIES ANY SPECIFIC TRIGGER, BUT STATES "I'M TIRED OF LIVING" AND STATES "MY FAMILY HAS REJECTED ME BECAUSE OF DRUG USE" STATES THAT IF WE LET HIM GO HOME, HE WILL KILL HIMSELF PT STATES HE TAKES LITHIUM FOR BIPOLAR DISORDER--STATES HE TOOK ONE 2 HOURS AGO PT HAS ALSO BEEN PRESCRIBED CITALOPRAM AT LAST ADMIT HERE--PT HAS NOT BEEN TAKING IT PT WITH LONG HISTORY OF DRUG USE, INCLUDING METHAMPETAMINES, BLACK TAR HEROIN AND THC. DENIES IV DRUG USE. STATES HE SMOKES ALL OF THOSE DRUGS STATES HE HAS NOT USED ANY DRUGS FOR 2 WEEKS PT STATES HE HAS NOT USED ANY ALCOHOL FOR 3 MONTHS, STATES HE NORMALLY DRINKS 2- 3 MIXED DRINKS A DAY. PT HAS HISTORY OF MENTAL HEALTH PROBLEMS, AND HAS HISTORY OF SUICIDAL IDEATIONS, BUT STATES HE HAS NEVER ACTUALLY ATTEMPTED IT PT STATES HE WAS ADMITTED TO [facility] 10 DAYS AGO STATES HE WAS THERE FOR A COUPLE OF DAYS, AND STATES "I DIDN'T FEEL LIKE THEY MET MY NEEDS. I WAS ASKING FOR SIMPLE MEDICATION CHANGES" ON REVIEW OF OLD CHART, PT WAS SEEN HERE IN ER 09/07/20 FOR SUICIDAL IDEATIONS, AND HAD REPORTED AT THAT TIME THAT HE HAD BEEN DISCHARGED FROM [facility] 4 DAYS PRIOR. HE ADMITTED AT THAT TIME THAT HE HAD TRIED TO OVERDOSE ON HEROIN AND METHAMPHETAMINE 2 WEEKS PRIOR. PT WAS ADMITTED HERE FROM 09/07-09/09/20 AND THEN WAS DISCHARGED TO [facility]. NO FEVER OR RECENT ILLNESS STATES HE HAS RECEIVED BOTH COVID-19 VACCINATIONS--LAST ONE WAS WHEN HE WAS AT [facility], PER PT PCP: [facility]: [facility] Allergies and Home Medications Allergies Coded Allergies: No Known Drug Allergies (Unverified , 01/04/19) Home Medications Citalopram Hydrobromide 20 Mg Tablet, 20 MG PO DAILY Prescribed by: TOM JULIEN on 09/08/202023 [place] Carbonate 300 Mg Capsule, 300 MG PO BID, (Reported) Patient Home Medication List Home Medication List Reviewed: Yes Review of Systems Constitutional: no symptoms reported EENTM: no symptoms reported Respiratory: no symptoms reported Cardiovascular: no symptoms reported Gastrointestinal: no symptoms reported Genitourinary: no symptoms reported Musculoskeletal: no symptoms reported Skin: no symptoms reported Psychiatric/Neurological: See HPI Past Mfywuen-Mhsbbk-Qmjqma Hx Past Med/Social Hx: Reviewed and Corrections made Patient Social History Alcohol Use: Regular Use Drug of Choice: METHAMPHETAMINE, HEROIN, THC--DENIES IV USE Smoking Status: Current Everyday Smoker Type Used: Cigarettes 2nd Hand Smoke Exposure: No Recent Hopitalizations: No Immunizations Up To Date Tetanus Booster (TDap): Unknown Date of Influenza Vaccine: Feb 10, 2021 Seasonal Allergies Seasonal Allergies: Yes Past Medical History Surgeries: Yes (HERNIA REPAIR) Abdominal, Transurethral Resection Respiratory: No Cardiac: No Neurological: No Genitourinary: Yes (S/P TURP) Benign Prostatic Hyperpl, Prostate Problems Gastrointestinal: Yes (LEFT INGUINAL HERNIA) Abdominal Hernia Musculoskeletal: No Endocrine: No HEENT: No Cancer: No Psychosocial: Yes ("BIPOLAR TYPE 2-SCHIZOID NO DILUSIONS";SUICIDAL IDEATIONS;POLYSUBSTANCE ABU) Sleep Difficulties, Anxiety, Suicide Attempts, Bipolar, Schizophrenia, Depression Integumentary: No Blood Disorders: No Family Medical History No Pertinent Family Hx SOCIAL HISTORY: -ETOH--2-3 MIXED DRINKS A DAY. NONE FOR 2-3 MONTHS, PER PT ON 09/23/20 -DRUGS--METHAMPHETAMINES, BLACK TAR HEROIN, THC. DENIES IV USE. CLAIMS NO USE FOR 2 WEEKS, PER PT ON 09/23/20 -SMOKED 1 PPD, STATES HE QUIT 2-3 MONTHS AGO, PER PT ON 09/23/20 ADDITIONAL HISTORY: -MULTIPLE PSYCH ADMITS, INCLUDING [place] [facility], [facility], [facility], [facility], OTHERS. LONG HISTORY OF HOMELESSNESS, LIVING IN LOCAL HOTELS AT INTERVALS Physical Exam Vital Signs - First Documented 09/23/20 19:34 Temp 36.5 Pulse 106 Resp 20 B/P (MAP) 123/95 (104) Pulse Ox 98 O2 Delivery Room Air Capillary Refill : Height, Weight, BMI Height: 5'10.00" Weight: 150lbs. oz. 68.445086zy; 20.84 BMI Method:Stated General Appearance: WD/WN, no apparent distress, other (PT IS CALM AND VERY COOPERATIVE. ) HEENT: PERRL/EOMI Neck: normal inspection Respiratory: normal breath sounds, no respiratory distress, no accessory muscle use Cardiovascular: regular rate, rhythm, no murmur Gastrointestinal: normal bowel sounds, non tender, soft, no organomegaly, no pulsatile mass Extremities: normal range of motion, non-tender, normal inspection, no pedal edema, no calf tenderness, normal capillary refill Neurologic/Psychiatric: care tech II-XII nml as tested, no motor/sensory deficits, alert, normal mood/affect, oriented x 3 Appearance/Memory: appropriate insight, no memory impairment Behavior/Eye Contact: cooperative, good eye contact, normal speech Thoughts/Hallucinations: no apparent hallucination; No delusions, No flight of ideas, No grandiose, No incoherent, No obsessive, No paranoid, No persecution, No phobic, No adventist Skin: normal color, warm/dry; No rash Progress/Results/Core Measures Results/Orders Lab Results My Orders Vital Signs/I&O Progress Progress Note : Progress Note PT RESTING QUIETLY DURING ER STAY PT VOICED NO COMPLAINTS Initial ECG Impression Date: September 23, 2020 Initial ECG Impression Time: 20:11 Initial ECG Rate: 90 Initial ECG Rhythm: Normal Sinus Departure Communication (Admissions) 2099--RN CONTACTING [facility]. PT'S INFORMATION TO BE FAXED TO MENTAL HEALTH SCREENER 2099--CALLED JOSE[facility] --NO BEDS AVAILABLE IN [place] OR [place] 2012--CALLED [facility], HAVE BEDS. PLACED ON HOLD, PAGING PSYCHIATRIC RESIDENT C CONSULTANT. 2129--STILL ON HOLD. [facility] REPORTS THAT RESIDENT IS CURRENTLY REVIEWING 2 OTHER PATIENTS, AND REQUESTED THAT WE FAX PT'S INFORMATION TO THEM. MENTAL HEALTH FAX NUMBER NOTED. THEY WILL CALL US BACK AFTER PT'S INFORMATION IS REVIEWED. 2208--PT DOING TELE-VISIT WITH MENTAL HEALTH SCREENER NOW 2231--CALLED [facility], TO VERIFY IF THEY RECEIVED PT'S INFORMATION. THEY WILL CHECK AND CALL US BACK. 2239--RE-FAXING PT'S INFORMATION TO CORRECT FAX NUMBER--THEY HAD GIVEN US THE INCORRECT FAX NUMBER [phone]--SPOKE WITH DR. MOODY, C CONSULTANT FOR PSYCH, ACCEPTS PT FOR ADMIT/TRANSFER. HE REPORTS HE IS VERY FAMILIAR WITH PT AND IN FACT, PT WAS ADMITTED AT THEIR FACILITY 4 DAYS AGO. 731--CALLED AGNES MULTANI FOR SECURE TRANSPORT. HE WILL BE HERE IN 30 MINUTES 2325--[facility] HERE FOR TRANSPORT. HE IS VERY FAMILIAR WITH PT, HE HAS TRANSPORTED HIM A MULTITUDE OF TIMES TO MULTIPLE FACILITIES IN 4 [facility]. HE REPORTS THAT PT IS BASICALLY HOMELESS, LIVES IN LOCAL HOTELS UNTIL HE RUNS OUT OF MONEY, THEN COMES TO ER AND STATES HE IS SUICIDAL AND GETS ADMITTED SOMEWHERE UNTIL HE GETS SOME MORE MONEY. Impression Primary Impression: Passive suicidal ideations Disposition: 65 XFER TO PSYCH HOSP/UNIT Condition: Stable Transfer Transfer Reason: Exceeds level of care Transfer Facility: [facility]LA [facility] Method of Transfer: Private Vehicle ([facility], SECURE TRANSPORT) Departure-Patient Inst. Referrals: [facility] (PCP/Family) Primary Care Physician Patient Instructions: OUTPT MENTAL HEALTH SERVICES BOAZ MATA DO September 23, 2020 20:07
[2020-09-23 20:10] LABS: CHLORIDE 106 MMOL/L (98-107); POTASSIUM 3.9 MMOL/L (3.6-5.0); SODIUM 139 MMOL/L (135-145)
[2020-09-23 20:12] LABS: CALCIUM 9.1 MG/DL (8.5-10.1)
[2020-09-23 20:13] LABS: GLUCOSE 113 MG/DL (70-105); TOTAL PROTEIN 6.5 GM/DL (6.4-8.2)
[2020-09-23 20:14] LABS: CARBON DIOXIDE 24 MMOL/L (21-32)
[2020-09-23 20:15] LABS: BILIRUBIN,TOTAL 0.3 MG/DL (0.1-1.0)
[2020-09-23 20:17] LABS: ALKALINE PHOSPHATASE 86 U/L (40-136); CREATININE SERUM 0.95 MG/DL (0.60-1.30); GFR ESTIMATED > 60
[2020-09-23 20:18] LABS: BUN/CREATININE RATIO 13
[2020-09-23 20:19] LABS: SALICYLATE < 5.0 MG/DL (5.0-20.0)
[2020-09-23 20:20] LABS: ALANINE AMINOTRANSFERASE 11 U/L (0-55)
[2020-09-23 20:26] LABS: ACETAMINOPHEN < 10 UG/ML (10-30)
[2020-09-23 20:39] LABS: TSH (THYROID ANALYZER) 1.34 UIU/ML (0.35-4.94)
[2020-09-23 20:47] LABS: BILIRUBIN,URINE NEGATIVE (NEGATIVE); CLARITY,URINE CLEAR; COLOR,URINE YELLOW; GLUCOSE, URINE (UA) NEGATIVE (NEGATIVE); KETONES,URINE NEGATIVE (NEGATIVE); LEUKOCYTE ESTERASE ,URINE NEGATIVE (NEGATIVE); NITRITE,URINE NEGATIVE (NEGATIVE); PH,URINE 6.5 (5-9); PROTEIN,URINE NEGATIVE (NEGATIVE)
[2020-09-23 20:54] LABS: BACTERIA,URINE TRACE /HPF; SQUAMOUS EPITHELIAL CELL,UR 0-2 /HPF; URINE OTHER FEW SPERM /HPF
[2020-09-23 20:55] LABS: WBC,URINE 0-2 /HPF
[2020-09-23 20:57] LABS: AMPHETAMINE SCREEN, URINE NEGATIVE (NEGATIVE); BARBITURATE SCREEN URINE NEGATIVE (NEGATIVE); BENZODIAZEPINES SCREEN URINE NEGATIVE (NEGATIVE); CANNABINOID SCREEN, URINE NEGATIVE (NEGATIVE); COCAINE SCREEN URINE NEGATIVE (NEGATIVE); METHADONE STAT NEGATIVE (NEGATIVE); METHAMPHETAMINE SCREEN URINE S NEGATIVE (NEGATIVE); OPIATE SCREEN URINE NEGATIVE (NEGATIVE); OXYCODONE STAT NEGATIVE (NEGATIVE); PROPOXYPHENE STAT NEGATIVE (NEGATIVE); TRICYCLIC ANTIDEPRESSANTS SCRE NEGATIVE (NEGATIVE)
[2020-09-23 23:28] VITALS: BP 118/80
== END 2020-09-23 23:34 ==
LOC: EDUNIT# 19:34 → ER 19:35
DX: R45.851 Suicidal ideations (principal); F32.9 Major depressive disorder, single episode, unspecified; F41.9 Anxiety disorder, unspecified; F17.210 Nicotine dependence, cigarettes, uncomplicated; Z20.822 Contact with and (suspected) exposure to COVID-19; Z79.899 Other long term (current) drug therapy
CPT/HCPCS: 80053; 80178; 80306; 81000; 84443; 85025; 87636; 93005; 99283; G0480 ×3; 36415; 80320; 80329

== ENCOUNTER 2020-10-09 16:39 | Emergency (ER) | payer MEDICARE ==
[~2020-10-09] VITALS: Ht 177 cm; Wt 65.0 kg
[2020-10-09 17:11] LABS: BILIRUBIN,URINE NEGATIVE (NEGATIVE); CLARITY,URINE CLEAR; COLOR,URINE YELLOW; GLUCOSE, URINE (UA) NEGATIVE (NEGATIVE); KETONES,URINE NEGATIVE (NEGATIVE); LEUKOCYTE ESTERASE ,URINE NEGATIVE (NEGATIVE); NITRITE,URINE NEGATIVE (NEGATIVE); PROTEIN,URINE NEGATIVE (NEGATIVE)
[2020-10-09 17:28] LABS: BASOPHILS # (AUTO) 0.1 10^3/uL (0.0-0.1); BASOPHILS % (AUTO) 1 % (0-10); EOSINOPHILS # (AUTO) 0.1 10^3/uL (0.0-0.3); EOSINOPHILS % (AUTO) 2 % (0-10); HEMATOCRIT 42 % (40-54); HEMOGLOBIN 14.6 g/dL (13.3-17.7); LYMPHOCYTES # (AUTO) 1.7 10^3/uL (1.0-4.0); LYMPHOCYTES % (AUTO) 25 % (12-44); MEAN CORPUSCULAR HEMOGLOBIN 31 pg (25-34); MEAN CORPUSCULAR HGB CONC 35 g/dL (32-36); MEAN CORPUSCULAR VOLUME 89 fL (80-99); MEAN PLATELET VOLUME 10.3 fL (9.0-12.2); MONOCYTES # (AUTO) 0.7 10^3/uL (0.0-1.0); MONOCYTES % (AUTO) 10 % (0-12); NEUTROPHILS # (AUTO) 4.2 10^3/uL (1.8-7.8); NEUTROPHILS % (AUTO) 62 % (42-75); PLATELET COUNT 338 10^3/uL (130-400); WHITE BLOOD COUNT 6.7 10^3/uL (4.3-11.0)
[2020-10-09 17:30] LABS: AMORPHOUS SEDIMENT,UR RARE AMOR URATES /LPF; BACTERIA,URINE NEGATIVE /HPF; WBC,URINE 0-2 /HPF
[2020-10-09 17:33] LABS: AMPHETAMINE SCREEN, URINE NEGATIVE (NEGATIVE); BARBITURATE SCREEN URINE NEGATIVE (NEGATIVE); BENZODIAZEPINES SCREEN URINE NEGATIVE (NEGATIVE); CANNABINOID SCREEN, URINE NEGATIVE (NEGATIVE); COCAINE SCREEN URINE NEGATIVE (NEGATIVE); METHADONE STAT NEGATIVE (NEGATIVE); METHAMPHETAMINE SCREEN URINE S NEGATIVE (NEGATIVE); OPIATE SCREEN URINE NEGATIVE (NEGATIVE); OXYCODONE STAT NEGATIVE (NEGATIVE); PROPOXYPHENE STAT NEGATIVE (NEGATIVE); TRICYCLIC ANTIDEPRESSANTS SCRE NEGATIVE (NEGATIVE)
[2020-10-09 17:39] LABS: CHLORIDE 103 MMOL/L (98-107); POTASSIUM 4.1 MMOL/L (3.6-5.0); SODIUM 138 MMOL/L (135-145)
[2020-10-09 17:40] LABS: ALBUMIN 4.3 GM/DL (3.2-4.5)
[2020-10-09 17:41] LABS: CALCIUM 9.4 MG/DL (8.5-10.1)
[2020-10-09 17:42] LABS: GLUCOSE 97 MG/DL (70-105); TOTAL PROTEIN 6.8 GM/DL (6.4-8.2)
[2020-10-09 17:43] LABS: CARBON DIOXIDE 20 MMOL/L (21-32)
[2020-10-09 17:44] LABS: BILIRUBIN,TOTAL 0.3 MG/DL (0.1-1.0)
[2020-10-09 17:46] LABS: ALKALINE PHOSPHATASE 102 U/L (40-136); CREATININE SERUM 0.96 MG/DL (0.60-1.30); GFR ESTIMATED > 60
[2020-10-09 17:47] LABS: BUN/CREATININE RATIO 17
[2020-10-09 17:48] LABS: SALICYLATE < 5.0 MG/DL (5.0-20.0)
[2020-10-09 17:49] LABS: ALANINE AMINOTRANSFERASE 9 U/L (0-55)
[2020-10-09 17:51] LABS: ACETAMINOPHEN < 10 UG/ML (10-30)
--- NOTE | 2020-10-09 17:53 | ED Psychosocial ---
General Chief Complaint: Psych/Social Disorder Stated Complaint: PSYCH EVAL Nursing Triage Note: ARRIVED VIA AMB WITH EMS FROM HOME. STATES HE IS WANTING TO HARM HIMSELF AND HAS A PLAN TO OBTAIN FENTENYL AND WONDER OFF. STATES HE WOULD LIKE TO BE ADMITTED TO [facility] [place] PS[facility]CH DEPT. Source: patient Exam Limitations: no limitations (HE BUTTS MD) History of Present Illness Date Seen by Provider: October 09, 2020 Time Seen by Provider: 16:40 Initial Comments This is 65-year-old gentleman presents to the emergency room via EMS with complaints of increasing depression over the past several days and suicidal ideation. When asked about a plan he states he would get some fentanyl and wander off. He reports prior admission at [facility] for suicidal ideation. He is established with a case managers and behavioral health. He denies any drug or alcohol abuse. He states no drug or alcohol use for about 3 months. (HE BUTTS MD) Allergies and Home Medications Allergies Coded Allergies: No Known Drug Allergies (Unverified , 01/04/19) Home Medications Rubicon Carbonate 300 Mg Capsule, 300 MG PO BID, (Reported) Patient Home Medication List Home Medication List Reviewed: Yes (HE BUTTS MD) Review of Systems Constitutional: no symptoms reported EENTM: no symptoms reported Respiratory: no symptoms reported Cardiovascular: no symptoms reported Gastrointestinal: no symptoms reported Genitourinary: no symptoms reported Musculoskeletal: no symptoms reported Skin: no symptoms reported Psychiatric/Neurological: See HPI (HE BUTTS MD) Past Safqkey-Phznek-Npambs Hx Past Med/Social Hx: Reviewed Nursing Past Med/Soc Hx (HE BUTTS MD) Patient Social History Alcohol Use: Past History Drug of Choice: METHAMPHETAMINE, HEROIN, THC--DENIES IV USE Smoking Status: Former Smoker Type Used: Cigarettes 2nd Hand Smoke Exposure: No Recent Infectious Disease Expo: No Recent Hopitalizations: No (HE BUTTS MD) Immunizations Up To Date Tetanus Booster (TDap): Unknown Date of Influenza Vaccine: Feb 10, 2021 (HE BUTTS MD) Seasonal Allergies Seasonal Allergies: Yes (HE BUTTS MD) Past Medical History Surgeries: Yes (HERNIA REPAIR) Abdominal, Transurethral Resection Respiratory: No Cardiac: No Neurological: No Genitourinary: Yes (S/P TURP) Benign Prostatic Hyperpl, Prostate Problems Gastrointestinal: Yes (LEFT INGUINAL HERNIA) Abdominal Hernia Musculoskeletal: No Endocrine: No HEENT: No Cancer: No Psychosocial: Yes ("BIPOLAR TYPE 2-SCHIZOID NO DILUSIONS";SUICIDAL IDEATIONS;POLYSUBSTANCE ABU) Sleep Difficulties, Anxiety, Suicide Attempts, Bipolar, Schizophrenia, Depression Integumentary: No Blood Disorders: No (HE BUTTS MD) Family Medical History No Pertinent Family Hx SOCIAL HISTORY: -ETOH--2-3 MIXED DRINKS A DAY. NONE FOR 2-3 MONTHS, PER PT ON 09/23/20 -DRUGS--METHAMPHETAMINES, BLACK TAR HEROIN, THC. DENIES IV USE. CLAIMS NO USE FOR 2 WEEKS, PER PT ON 09/23/20 -SMOKED 1 PPD, STATES HE QUIT 2-3 MONTHS AGO, PER PT ON 09/23/20 ADDITIONAL HISTORY: -MULTIPLE PSYCH ADMITS, INCLUDING [place] [facility], [facility], [facility], [facility], OTHERS. LONG HISTORY OF HOMELESSNESS, LIVING IN LOCAL HOTELS AT INTERVALS (EH BUTTS MD) Physical Exam Vital Signs - First Documented 10/09/20 16:39 Temp 36.7 Pulse 105 Resp 16 B/P (MAP) 156/98 (117) Pulse Ox 98 O2 Delivery Room Air (TORI HOOD) Capillary Refill : Less Than 3 Seconds (HE BUTTS MD) Height, Weight, BMI Height: 5'10.00" Weight: 150lbs. oz. 68.751959sf; 20.00 BMI Method:Stated General Appearance: WD/WN, no apparent distress HEENT: PERRL/EOMI, normal ENT inspection Neck: normal inspection Respiratory: lungs clear, normal breath sounds, no respiratory distress, no accessory muscle use Cardiovascular: regular rate, rhythm, no edema, no murmur Gastrointestinal: normal bowel sounds, non tender, soft Extremities: normal inspection, no pedal edema Neurologic/Psychiatric: obstetrics tech II-XII nml as tested, no motor/sensory deficits, alert, oriented x 3, abnormal obstetrics tech II-XII, other (Reports suicidal ideation with plan) Appearance/Memory: appropriate appearance, appropriate insight Behavior/Eye Contact: cooperative, good eye contact Thoughts/Hallucinations: no apparent hallucination Skin: normal color, warm/dry (HE BUTTS MD) Progress/Results/Core Measures Results/Orders Lab Results Laboratory Tests Test 10/09/20 17:05 10/09/20 17:22 Range/Units Urine Color YELLOW Urine Clarity CLEAR Urine pH 6.0 5-9 Urine Specific [place] 1.025 H 1.016-1.022 Urine Protein NEGATIVE NEGATIVE Urine Glucose (UA) NEGATIVE NEGATIVE Urine Ketones NEGATIVE NEGATIVE Urine Nitrite NEGATIVE NEGATIVE Urine Bilirubin NEGATIVE NEGATIVE Urine Urobilinogen 0.2 < = 1.0 MG/DL Urine Leukocyte Esterase NEGATIVE NEGATIVE Urine RBC (Auto) NEGATIVE NEGATIVE Urine RBC NONE /HPF Urine WBC 0-2 /HPF Urine Crystals PRESENT H /LPF Urine Amorphous Sediment RARE HECTOR URATES H /LPF Urine Bacteria NEGATIVE /HPF Urine Casts NONE /LPF Urine Mucus MODERATE H /LPF Urine Culture Indicated NO Urine Opiates Screen NEGATIVE NEGATIVE Urine Oxycodone Screen NEGATIVE NEGATIVE Urine Methadone Screen NEGATIVE NEGATIVE Urine Propoxyphene Screen NEGATIVE NEGATIVE Urine Barbiturates Screen NEGATIVE NEGATIVE Ur Tricyclic Antidepressants Screen NEGATIVE NEGATIVE Urine Phencyclidine Screen NEGATIVE NEGATIVE Urine Amphetamines Screen NEGATIVE NEGATIVE Urine Methamphetamines Screen NEGATIVE NEGATIVE Urine Benzodiazepines Screen NEGATIVE NEGATIVE Urine Cocaine Screen NEGATIVE NEGATIVE Urine Cannabinoids Screen NEGATIVE NEGATIVE White Blood Count 6.7 4.3-11.0 10^3/uL Red Blood Count 4.67 4.30-5.52 10^6/uL Hemoglobin 14.6 13.3-17.7 g/dL Hematocrit 42 40-54 % Mean Corpuscular Volume 89 80-99 fL Mean Corpuscular Hemoglobin 31 25-34 pg Mean Corpuscular Hemoglobin Concent 35 32-36 g/dL Red Cell Distribution Width 13.2 10.0-14.5 % Platelet Count 338 130-400 10^3/uL Mean Platelet Volume 10.3 9.0-12.2 fL Immature Granulocyte % (Auto) 0 % Neutrophils (%) (Auto) 62 42-75 % Lymphocytes (%) (Auto) 25 12-44 % Monocytes (%) (Auto) 10 0-12 % Eosinophils (%) (Auto) 2 0-10 % Basophils (%) (Auto) 1 0-10 % Neutrophils # (Auto) 4.2 1.8-7.8 10^3/uL Lymphocytes # (Auto) 1.7 1.0-4.0 10^3/uL Monocytes # (Auto) 0.7 0.0-1.0 10^3/uL Eosinophils # (Auto) 0.1 0.0-0.3 10^3/uL Basophils # (Auto) 0.1 0.0-0.1 10^3/uL Immature Granulocyte # (Auto) 0.0 0.0-0.1 10^3/uL Sodium Level 138 135-145 MMOL/L Potassium Level 4.1 3.6-5.0 MMOL/L Chloride Level 103 98-107 MMOL/L Carbon Dioxide Level 20 L 21-32 MMOL/L Anion Gap 15 H 5-14 MMOL/L Blood Urea Nitrogen 16 7-18 MG/DL Creatinine 0.96 0.60-1.30 MG/DL Estimat Glomerular Filtration Rate > 60 BUN/Creatinine Ratio 17 Glucose Level 97 70-105 MG/DL Calcium Level 9.4 8.5-10.1 MG/DL Corrected Calcium 9.2 8.5-10.1 MG/DL Total Bilirubin 0.3 0.1-1.0 MG/DL Aspartate Amino Transf (AST/SGOT) 14 5-34 U/L Alanine Aminotransferase (ALT/SGPT) 9 0-55 U/L Alkaline Phosphatase 102 40-136 U/L Total Protein 6.8 6.4-8.2 GM/DL Albumin 4.3 3.2-4.5 GM/DL TSH [place] Testing 1.64 0.35-4.94 UIU/ML Salicylates Level < 5.0 L 5.0-20.0 MG/DL Acetaminophen Level < 10 L 10-30 UG/ML Serum Alcohol < 10 <10 MG/DL (TORI HOOD) Vital Signs/I&O 10/09/20 10/09/20 16:39 18:27 Temp 36.7 36.7 Pulse 105 81 Resp 16 15 B/P (MAP) 156/98 (117) 117/96 (103) Pulse Ox 98 98 O2 Delivery Room Air Room Air (TORI HOOD) Blood Pressure Mean: 117 Progress Progress Note : Time: 18:24 Progress Note I have contacted the [facility] hotline. We are faxing the chart for review. Care of this patient is being transitioned to Dr. Hood at this time. (HE BUTTS MD) Progress Note #1: Progress Note I agree with the above documented history and physical exam. The patient is res ting comfortably in his room without acute, pressing concern. [facility] mental health screener has been contacted and information has been faxed over to them. They will talk to the patient next. Progress Note #2: Time: 21:36 Progress Note Screener has visited with the patient and also with [facility] and after I spoke with them we feel the patient should be okay to go home with a safety plan. Screener has discussed this plan with the patient. Will allow him to discharge with outpatient follow-up. (TORI HOOD) Initial ECG Impression Date: October 09, 2020 Initial ECG Impression Time: 16:43 Initial ECG Rate: 94 Initial ECG Rhythm: Normal Sinus Initial ECG Intervals: Normal Initial ECG Impression: Normal Comment Normal sinus rhythm with no ST elevation or depression. No abnormal intervals or axis deviation. PVC noted. (HE BUTTS MD) Departure Impression Primary Impression: Suicidal ideations Disposition: 01 HOME, SELF-CARE Condition: Stable Departure-Patient Inst. Decision time for Depature: 21:36 (TORI HOOD) Referrals: [facility] (PCP/Family) Primary Care Physician Patient Instructions: Depression, Adult (DC), Suicide Prevention Add. Discharge Instructions: Keep your follow-up plan as lined up by the mental health screener. Call [phone] if you have any further concerns. All discharge instructions reviewed with patient and/or family. Voiced understanding. HE BUTTS MD October 09, 2020 17:53 TORI HOOD October 09, 2020 18:48
[2020-10-09 22:21] VITALS: BP 115/94
== END 2020-10-09 22:21 | disposition home or self-care (01) ==
LOC: EDUNIT# 16:39 → ER 16:40
DX: R45.851 Suicidal ideations (principal); F20.9 Schizophrenia, unspecified; F31.9 Bipolar disorder, unspecified; Z87.891 Personal history of nicotine dependence; Z59.0 Homelessness
CPT/HCPCS: 80053; 80306; 81000; 84443; 85025; 93005; 99283; G0480 ×3; 36415; 80320; 80329

== ENCOUNTER 2020-10-23 15:27 | Emergency (ER) | payer MEDICARE ==
[~2020-10-23] VITALS: Ht 177 cm; Wt 69.3 kg
[2020-10-23 16:36] LABS: BILIRUBIN,URINE NEGATIVE (NEGATIVE); CLARITY,URINE CLEAR; COLOR,URINE YELLOW; GLUCOSE, URINE (UA) NEGATIVE (NEGATIVE); KETONES,URINE NEGATIVE (NEGATIVE); LEUKOCYTE ESTERASE ,URINE NEGATIVE (NEGATIVE); NITRITE,URINE NEGATIVE (NEGATIVE); PROTEIN,URINE NEGATIVE (NEGATIVE)
[2020-10-23 16:44] LABS: BACTERIA,URINE TRACE /HPF; HYALINE CASTS, URINE 0-2 /LPF; SQUAMOUS EPITHELIAL CELL,UR RARE /HPF; WBC,URINE 0-2 /HPF
[2020-10-23 16:46] LABS: AMPHETAMINE SCREEN, URINE NEGATIVE (NEGATIVE); BARBITURATE SCREEN URINE NEGATIVE (NEGATIVE); BENZODIAZEPINES SCREEN URINE NEGATIVE (NEGATIVE); CANNABINOID SCREEN, URINE NEGATIVE (NEGATIVE); COCAINE SCREEN URINE NEGATIVE (NEGATIVE); METHADONE STAT NEGATIVE (NEGATIVE); METHAMPHETAMINE SCREEN URINE S NEGATIVE (NEGATIVE); OPIATE SCREEN URINE NEGATIVE (NEGATIVE); OXYCODONE STAT NEGATIVE (NEGATIVE); PROPOXYPHENE STAT NEGATIVE (NEGATIVE); TRICYCLIC ANTIDEPRESSANTS SCRE NEGATIVE (NEGATIVE)
--- NOTE | 2020-10-23 16:58 | ED Psychosocial ---
General Chief Complaint: Psych/Social Disorder Stated Complaint: SUICIDAL IDEATIONS Nursing Triage Note: PT PRESENTS TO ED VIA EMS FOR HELP WITH MEDICATION AND STABILITY. PT REPORTS RACING THOUGHTS AND SLEEP ISSUES. PT ALSO REPORTS HE STRUGGLES WITH PTSD FROM CHILDHOOD. Source: patient Exam Limitations: no limitations (TORI MORALES) History of Present Illness Date Seen by Provider: Oct 23, 2020 Time Seen by Provider: 16:00 Initial Comments Patient presents ER by EMS from the [facility] where he is staying. He reports lots of history of PTSD and childhood traumas that over the past 3 to 4 days have been progressively making him feel worse and become suicidal. He has a plan to take all of his medications to kill himself. He has had suicide attempts in the past. His most recent visit was 2 weeks ago to the ER. At that time his suicidal ideations were set up for outpatient management through the clinic. In the past 3 days he did call [facility] and felt like his concerns were being blown off so he decided to come here seeking inpatient stay in hospital voluntarily. He denies any fever chills cough nausea vomiting diarrhea. (TORI MORALES) Allergies and Home Medications Allergies Coded Allergies: No Known Drug Allergies (Unverified , 01/04/19) Home Medications [place] Carbonate 300 Mg Capsule, 300 MG PO BID, (Reported) Patient Home Medication List Home Medication List Reviewed: Yes (TORI MORALES) Review of Systems Constitutional: No chills, No diaphoresis EENTM: No ear discharge, No ear pain Respiratory: No cough, No short of breath Cardiovascular: No chest pain, No palpitations Gastrointestinal: No abdominal pain, No nausea, No vomiting Genitourinary: No discharge, No dysuria Musculoskeletal: No back pain, No joint pain (TORI MORALES) All Other Systems Reviewed Negative Unless Noted: Yes (TORI MORALES) Past Urcrweq-Xvucgg-Fchaxv Hx Patient Social History Alcohol Use: Denies Use Drug of Choice: METHAMPHETAMINE, HEROIN, THC--DENIES IV USE Smoking Status: Former Smoker Type Used: Cigarettes Former Smoker, Quit: Aug 23, 2020 2nd Hand Smoke Exposure: No Recent Infectious Disease Expo: No Recent Hopitalizations: No (TORI MORALES) Immunizations Up To Date Tetanus Booster (TDap): Unknown Date of Influenza Vaccine: Feb 10, 2021 (TORI MORALES) Seasonal Allergies Seasonal Allergies: Yes (TORI MORALES) Past Medical History Surgeries: Yes (HERNIA REPAIR, prostate removed) Abdominal, Transurethral Resection Respiratory: No Cardiac: No Neurological: No Genitourinary: Yes (S/P TURP) Benign Prostatic Hyperpl, Prostate Problems Gastrointestinal: Yes (LEFT INGUINAL HERNIA) Abdominal Hernia Musculoskeletal: No Endocrine: No HEENT: No Cancer: No Psychosocial: Yes ("BIPOLAR TYPE 2-SCHIZOID NO DILUSIONS";SUICIDAL IDEATIONS;POLYSUBSTANCE ABU) Sleep Difficulties, Anxiety, Suicide Attempts, Bipolar, Schizophrenia, Depression Integumentary: No Blood Disorders: No (TORI MORALES) Family Medical History No Pertinent Family Hx SOCIAL HISTORY: -ETOH--2-3 MIXED DRINKS A DAY. NONE FOR 2-3 MONTHS, PER PT ON 09/23/20 -DRUGS--METHAMPHETAMINES, BLACK TAR HEROIN, THC. DENIES IV USE. CLAIMS NO USE FOR 2 WEEKS, PER PT ON 09/23/20 -SMOKED 1 PPD, STATES HE QUIT 2-3 MONTHS AGO, PER PT ON 09/23/20 ADDITIONAL HISTORY: -MULTIPLE PSYCH ADMITS, INCLUDING [place] [facility]SO [facility], [facility], [facility], [facility], OTHERS. LONG HISTORY OF HOMELESSNESS, LIVING IN LOCAL HOTELS AT INTERVALS (TORI MORALES) Physical Exam Vital Signs - First Documented 10/23/20 15:56 Temp 36.8 Pulse 100 Resp 18 B/P (MAP) 120/75 (90) Pulse Ox 98 (ADOLFO,BOAZ K DO) Capillary Refill : Less Than 3 Seconds (TORI MORALES) Height, Weight, BMI Height: 5'10.00" Weight: 150lbs. oz. 68.358947lf; 22.00 BMI Method:Stated General Appearance: WD/WN, mild distress HEENT: PERRL/EOMI, pharynx normal Neck: non-tender, full range of motion Respiratory: lungs clear, normal breath sounds, no respiratory distress, no accessory muscle use Cardiovascular: normal peripheral pulses, regular rate, rhythm Peripheral Pulses: 2+ Radial Pulses (R), 2+ Radial Pulses (L) Gastrointestinal: normal bowel sounds, non tender, soft Extremities: normal range of motion, non-tender, normal inspection, normal capillary refill Neurologic/Psychiatric: alert, normal mood/affect, oriented x 3 Appearance/Memory: appropriate appearance, appropriate insight Behavior/Eye Contact: cooperative, good eye contact, normal speech Thoughts/Hallucinations: normal thought pattern, no apparent hallucination (TORI MORALES) Progress/Results/Core Measures Results/Orders Lab Results Laboratory Tests Test 10/23/20 16:13 10/23/20 17:25 10/23/20 17:31 Range/Units Urine Color YELLOW Urine Clarity CLEAR Urine pH 6.0 5-9 Urine Specific [place] >=1.030 1.016-1.022 Urine Protein NEGATIVE NEGATIVE Urine Glucose (UA) NEGATIVE NEGATIVE Urine Ketones NEGATIVE NEGATIVE Urine Nitrite NEGATIVE NEGATIVE Urine Bilirubin NEGATIVE NEGATIVE Urine Urobilinogen 0.2 < = 1.0 MG/DL Urine Leukocyte Esterase NEGATIVE NEGATIVE Urine RBC (Auto) NEGATIVE NEGATIVE Urine RBC NONE /HPF Urine WBC 0-2 /HPF Urine Squamous Epithelial Cells RARE /HPF Urine Crystals NONE /LPF Urine Bacteria TRACE /HPF Urine Casts PRESENT /LPF Urine Hyaline Casts 0-2 H /LPF Urine Mucus SMALL H /LPF Urine Culture Indicated NO Urine Opiates Screen NEGATIVE NEGATIVE Urine Oxycodone Screen NEGATIVE NEGATIVE Urine Methadone Screen NEGATIVE NEGATIVE Urine Propoxyphene Screen NEGATIVE NEGATIVE Urine Barbiturates Screen NEGATIVE NEGATIVE Ur Tricyclic Antidepressants Screen NEGATIVE NEGATIVE Urine Phencyclidine Screen NEGATIVE NEGATIVE Urine Amphetamines Screen NEGATIVE NEGATIVE Urine Methamphetamines Screen NEGATIVE NEGATIVE Urine Benzodiazepines Screen NEGATIVE NEGATIVE Urine Cocaine Screen NEGATIVE NEGATIVE Urine Cannabinoids Screen NEGATIVE NEGATIVE SARS-CoV-2 RNA (RT-PCR) Not Detected Not Detecte White Blood Count 6.6 4.3-11.0 10^3/uL Red Blood Count 4.61 4.30-5.52 10^6/uL Hemoglobin 14.3 13.3-17.7 g/dL Hematocrit 41 40-54 % Mean Corpuscular Volume 90 80-99 fL Mean Corpuscular Hemoglobin 31 25-34 pg Mean Corpuscular Hemoglobin Concent 35 32-36 g/dL Red Cell Distribution Width 13.2 10.0-14.5 % Platelet Count 280 130-400 10^3/uL Mean Platelet Volume 10.3 9.0-12.2 fL Immature Granulocyte % (Auto) 1 % Neutrophils (%) (Auto) 63 42-75 % Lymphocytes (%) (Auto) 23 12-44 % Monocytes (%) (Auto) 10 0-12 % Eosinophils (%) (Auto) 3 0-10 % Basophils (%) (Auto) 1 0-10 % Neutrophils # (Auto) 4.1 1.8-7.8 10^3/uL Lymphocytes # (Auto) 1.5 1.0-4.0 10^3/uL Monocytes # (Auto) 0.7 0.0-1.0 10^3/uL Eosinophils # (Auto) 0.2 0.0-0.3 10^3/uL Basophils # (Auto) 0.1 0.0-0.1 10^3/uL Immature Granulocyte # (Auto) 0.0 0.0-0.1 10^3/uL Sodium Level 137 135-145 MMOL/L Potassium Level 4.0 3.6-5.0 MMOL/L Chloride Level 104 98-107 MMOL/L Carbon Dioxide Level 22 21-32 MMOL/L Anion Gap 11 5-14 MMOL/L Blood Urea Nitrogen 14 7-18 MG/DL Creatinine 0.84 0.60-1.30 MG/DL Estimat Glomerular Filtration Rate > 60 BUN/Creatinine Ratio 17 Glucose Level 85 70-105 MG/DL Calcium Level 9.0 8.5-10.1 MG/DL Corrected Calcium 9.1 8.5-10.1 MG/DL Total Bilirubin 0.4 0.1-1.0 MG/DL Aspartate Amino Transf (AST/SGOT) 10 5-34 U/L Alanine Aminotransferase (ALT/SGPT) 10 0-55 U/L Alkaline Phosphatase 87 40-136 U/L Total Protein 6.4 6.4-8.2 GM/DL Albumin 3.9 3.2-4.5 GM/DL Salicylates Level < 5.0 L 5.0-20.0 MG/DL Acetaminophen Level < 10 L 10-30 UG/ML Serum Alcohol < 10 <10 MG/DL (WILNER CHERYA K DO) Vital Signs/I&O 10/23/20 15:56 Temp 36.8 Pulse 100 Resp 18 B/P (MAP) 120/75 (90) Pulse Ox 98 (WILNER CHERYA K DO) Blood Pressure Mean: 90 Progress Progress Note : Time: 18:07 Progress Note Patient was offered a meal tray. [place] mental health telescreener will be contacted as he is medically cleared at this time. He has no medical or physical symptoms or complaints. Turned over care of the patient to Dr. Chery. (TORI MORALES) Progress Note : Progress Note 1800--ASSUMED CARE FROM DR. MORALES, PT NOW WANTING SOMETHING TO EAT, MENU GIVEN TO PT, RN CONTACTING [facility] FOR MENTAL HEALTH SCREEN. PT RECLINED AND LOUNGING ON ER CART--OUTSTRETCHED, LEGS CROSSED AT ANKLES, PERUSING THE MENU. DOES NOT APPEAR TO BE IN ANY DISCOMFORT OR DISTRESS. PT HAS BEEN SEEN HERE EVERY 2 WEEKS SINCE JULY FOR THIS EXACT SAME COMPLAINT PT KNOWN TO BE HOMELESS AND STAYING IN LOCAL MOTELS, THEN EVERY 2 WEEKS WILL COME TO ER STATING HE IS HAVING SUICIDAL IDEATIONS, AND WANTING VOLUNTARY INPATIENT PSYCHIATRIC CARE. PT HAS NEVER ACTUALLY ATTEMPTED SUICIDE--ONLY REPORTS THAT HE IS HAVING SUICIDAL THOUGHTS 2039--[facility] HAVE A BED, AND INTAKE PERSON IS ON PHONE WITH PT NOW. 2129--PT WANTING US TO "SPEED UP THE PROCESS" --PT ADVISED OF [facility] TO FIND PLACEMENT, WHICH HE IS WELL AWARE OF. PT REPORTS THAT HE WANTS TO GO TO [place], AND HE HAS BEEN REPEATEDLY ADVISED THAT THERE ARE NO BEDS AVAILABLE IN [place]. STATES HE DOES NOT WANT TO GO TO [place], ADVISED HIM THAT HE COULD NOT "PICK AND CHOOSE" WHERE HE WANTED TO GO, THAT IT WAS A MATTER OF BED AVAILABILITY, WHICH HE IS WELL AWARE OF (BOAZ CHERY DO) Initial ECG Impression Date: Oct 23, 2020 Initial ECG Impression Time: 17:35 Initial ECG Rate: 81 Initial ECG Rhythm: Normal Sinus (BOAZ CHERY DO) Departure Communication (Admissions) 1813--RN ON PHONE WITH [facility] 1844--TELE-SCREENER WITH PT NOW. 1944--TELE-SCREENER ATTEMPTING TO FIND INPATIENT PLACEMENT. NO BEDS AVAILABLE AT [place] OR IN [facility] OR [place]. 2214--CALLED [facility], AFTER INTERVIEWING PT/ DOING INTAKE ON PT, HE STATED TO THEM THAT HE WAS NOT AGREEABLE TO GOING THERE, THEREFORE THEIR SERVICES WERE NO LONGER NEEDED. [employer] EFFORTS HAVE BEEN MADE TO FIND A BED, AND PT IS NOT WILLING TO GO TO THE AVAILABLE BED IN [place], ADVISED PT THAT HE COULD FOLLOW UP WITH [facility] OR [facility] TOMORROW AND HE IS AGREEABLE TO THIS PLAN. SAFETY PLAN DISCUSSED. (BOAZ CHERY DO) Impression Primary Impression: Passive suicidal ideations Disposition: 01 HOME, SELF-CARE Condition: Stable Departure-Patient Inst. Decision time for Depature: 22:17 (BOAZ CHERY DO) Referrals: [facility] (PCP/Family) Primary Care Physician Patient Instructions: Suicide Prevention Add. Discharge Instructions: FOLLOW UP WITH [facility] OR [facility] TOMORROW FOR FURTHER CARE--CALL IN AM TO MAKE AN APPOINTMENT All discharge instructions reviewed with patient and/or family. Voiced understanding. TORI MORALES Oct 23, 2020 16:58 BOAZ CHERY DO Oct 23, 2020 18:14
[2020-10-23 17:36] LABS: BASOPHILS # (AUTO) 0.1 10^3/uL (0.0-0.1); BASOPHILS % (AUTO) 1 % (0-10); EOSINOPHILS # (AUTO) 0.2 10^3/uL (0.0-0.3); EOSINOPHILS % (AUTO) 3 % (0-10); HEMATOCRIT 41 % (40-54); HEMOGLOBIN 14.3 g/dL (13.3-17.7); LYMPHOCYTES # (AUTO) 1.5 10^3/uL (1.0-4.0); LYMPHOCYTES % (AUTO) 23 % (12-44); MEAN CORPUSCULAR HEMOGLOBIN 31 pg (25-34); MEAN CORPUSCULAR HGB CONC 35 g/dL (32-36); MEAN CORPUSCULAR VOLUME 90 fL (80-99); MEAN PLATELET VOLUME 10.3 fL (9.0-12.2); MONOCYTES # (AUTO) 0.7 10^3/uL (0.0-1.0); MONOCYTES % (AUTO) 10 % (0-12); NEUTROPHILS # (AUTO) 4.1 10^3/uL (1.8-7.8); NEUTROPHILS % (AUTO) 63 % (42-75); PLATELET COUNT 280 10^3/uL (130-400); WHITE BLOOD COUNT 6.6 10^3/uL (4.3-11.0)
[2020-10-23 17:49] LABS: ALBUMIN 3.9 GM/DL (3.2-4.5); CHLORIDE 104 MMOL/L (98-107); SODIUM 137 MMOL/L (135-145)
[2020-10-23 17:51] LABS: GLUCOSE 85 MG/DL (70-105)
[2020-10-23 17:52] LABS: CARBON DIOXIDE 22 MMOL/L (21-32); TOTAL PROTEIN 6.4 GM/DL (6.4-8.2)
[2020-10-23 17:53] LABS: BILIRUBIN,TOTAL 0.4 MG/DL (0.1-1.0)
[2020-10-23 17:55] LABS: ALKALINE PHOSPHATASE 87 U/L (40-136); CREATININE SERUM 0.84 MG/DL (0.60-1.30); GFR ESTIMATED > 60
[2020-10-23 17:56] LABS: BUN/CREATININE RATIO 17
[2020-10-23 17:58] LABS: ALANINE AMINOTRANSFERASE 10 U/L (0-55); SALICYLATE < 5.0 MG/DL (5.0-20.0)
[2020-10-23 18:01] LABS: ACETAMINOPHEN < 10 UG/ML (10-30)
[2020-10-23 22:25] VITALS: BP 124/85
== END 2020-10-23 22:25 | disposition home or self-care (01) ==
LOC: EDUNIT# 15:27 → ER 15:28
DX: R45.851 Suicidal ideations (principal); Z87.891 Personal history of nicotine dependence; Z20.822 Contact with and (suspected) exposure to COVID-19
CPT/HCPCS: 80053; 80306; 81000; 85025; 87636; 93005; 99283; G0480 ×3; 36415; 80320; 80329

== ENCOUNTER 2020-10-29 11:15 | Emergency (ER) | payer MEDICARE, MEDICAID ==
[~2020-10-29] VITALS: Ht 177.8 cm; Wt 63.5 kg
[2020-10-29] MEDS ORDERED: ALPRAZolam 1 MG (XANAX) TAB PO ONE (11:30)
--- NOTE | 2020-10-29 11:35 | ED General ---
General Stated Complaint: SUICIDAL IDEATION Source of Information: Patient Exam Limitations: No Limitations History of Present Illness Date Seen by Provider: Oct 29, 2020 Time Seen by Provider: 11:30 Initial Comments To ER by EMS from [facility] [place] parking lot. Police were called and patient stated that he was paranoid and delusional and wanted to be seen in the emergency room. He was here 6 days ago and requested inpatient admission. The only bed availability was in [facility]. They had a bed for him but he declined going up there. He again states he wants to be admitted for his delusions and paranoia. Timing/Duration: 1-2 Days Severity: Moderate Associated Systoms: Denies Symptoms Allergies and Home Medications Allergies Coded Allergies: No Known Drug Allergies (Unverified , 01/04/19) Home Medications [place] Carbonate 300 Mg Capsule, 300 MG PO BID, (Reported) Patient Home Medication List Home Medication List Reviewed: Yes Review of Systems Review of Systems Constitutional: see HPI EENTM: see HPI Respiratory: no symptoms reported Cardiovascular: no symptoms reported Genitourinary: no symptoms reported Musculoskeletal: no symptoms reported Skin: no symptoms reported Psychiatric/Neurological: See HPI, Anxiety Hematologic/Lymphatic: No Symptoms Reported Immunological/Allergic: no symptoms reported Past Lvtbmga-Bzpork-Snibpr Hx Patient Social History Drug of Choice: METHAMPHETAMINE, HEROIN, THC--DENIES IV USE Type Used: Cigarettes Former Smoker, Quit: Aug 23, 2020 2nd Hand Smoke Exposure: No Recent Hopitalizations: No Immunizations Up To Date Tetanus Booster (TDap): Unknown Date of Influenza Vaccine: Feb 10, 2021 Seasonal Allergies Seasonal Allergies: Yes Past Medical History Surgeries: Yes (HERNIA REPAIR, prostate removed) Abdominal, Transurethral Resection Respiratory: No Cardiac: No Neurological: No Genitourinary: Yes (S/P TURP) Benign Prostatic Hyperpl, Prostate Problems Gastrointestinal: Yes (LEFT INGUINAL HERNIA) Abdominal Hernia Musculoskeletal: No Endocrine: No HEENT: No Cancer: No Psychosocial: Yes ("BIPOLAR TYPE 2-SCHIZOID NO DILUSIONS";SUICIDAL IDEATIONS;POLYSUBSTANCE ABU) Sleep Difficulties, Anxiety, Suicide Attempts, Bipolar, Schizophrenia, Depression Integumentary: No Blood Disorders: No Family Medical History No Pertinent Family Hx SOCIAL HISTORY: -ETOH--2-3 MIXED DRINKS A DAY. NONE FOR 2-3 MONTHS, PER PT ON 09/23/20 -DRUGS--METHAMPHETAMINES, BLACK TAR HEROIN, THC. DENIES IV USE. CLAIMS NO USE FOR 2 WEEKS, PER PT ON 09/23/20 -SMOKED 1 PPD, STATES HE QUIT 2-3 MONTHS AGO, PER PT ON 09/23/20 ADDITIONAL HISTORY: -MULTIPLE PSYCH ADMITS, INCLUDING [place] [facility], [facility], [facility], [facility], OTHERS. LONG HISTORY OF HOMELESSNESS, LIVING IN LOCAL HOTELS AT INTERVALS Physical Exam Vital Signs Vital Signs - First Documented 10/29/20 11:30 Temp 36.3 Pulse 99 Resp 18 B/P (MAP) 115/82 (93) Pulse Ox 99 O2 Delivery Room Air Capillary Refill : Height, Weight, BMI Height: 5'10.00" Weight: 150lbs. oz. 68.856423ra; 22.00 BMI Method:Stated General Appearance: No Apparent Distress, WD/WN, Other (cooperative. States he would like something to help him calm down.) Eyes: Bilateral Eye Normal Inspection, Bilateral Eye PERRL, Bilateral Eye EOMI HEENT: PERRL/EOMI, TMs Normal Neck: Full Range of Motion, Normal Inspection Respiratory: No Accessory Muscle Use, No Respiratory Distress Cardiovascular: Regular Rate, Rhythm, Normal Peripheral Pulses Gastrointestinal: Non Tender, Soft Extremity: Normal Capillary Refill, Normal Inspection Neurologic/Psychiatric: Alert, Oriented x3 Progress/Results/Core Measures Suspected Sepsis SIRS Temperature: Pulse: Respiratory Rate: Laboratory Tests 10/29/20 11:28: White Blood Count 6.1 Blood Pressure / Mean: Laboratory Tests 10/29/20 11:28: Creatinine 1.04, Platelet Count 303, Total Bilirubin 0.7 Results/Orders Lab Results Laboratory Tests Test 10/29/20 11:28 Range/Units White Blood Count 6.1 4.3-11.0 10^3/uL Red Blood Count 5.02 4.30-5.52 10^6/uL Hemoglobin 15.9 13.3-17.7 g/dL Hematocrit 45 40-54 % Mean Corpuscular Volume 90 80-99 fL Mean Corpuscular Hemoglobin 32 25-34 pg Mean Corpuscular Hemoglobin Concent 35 32-36 g/dL Red Cell Distribution Width 12.6 10.0-14.5 % Platelet Count 303 130-400 10^3/uL Mean Platelet Volume 10.2 9.0-12.2 fL Immature Granulocyte % (Auto) 1 % Neutrophils (%) (Auto) 51 42-75 % Lymphocytes (%) (Auto) 35 12-44 % Monocytes (%) (Auto) 9 0-12 % Eosinophils (%) (Auto) 3 0-10 % Basophils (%) (Auto) 1 0-10 % Neutrophils # (Auto) 3.1 1.8-7.8 10^3/uL Lymphocytes # (Auto) 2.2 1.0-4.0 10^3/uL Monocytes # (Auto) 0.6 0.0-1.0 10^3/uL Eosinophils # (Auto) 0.2 0.0-0.3 10^3/uL Basophils # (Auto) 0.1 0.0-0.1 10^3/uL Immature Granulocyte # (Auto) 0.0 0.0-0.1 10^3/uL Sodium Level 138 135-145 MMOL/L Potassium Level 4.3 3.6-5.0 MMOL/L Chloride Level 106 98-107 MMOL/L Carbon Dioxide Level 21 21-32 MMOL/L Anion Gap 11 5-14 MMOL/L Blood Urea Nitrogen 17 7-18 MG/DL Creatinine 1.04 0.60-1.30 MG/DL Estimat Glomerular Filtration Rate > 60 BUN/Creatinine Ratio 16 Glucose Level 108 H 70-105 MG/DL Calcium Level 9.1 8.5-10.1 MG/DL Corrected Calcium 8.9 8.5-10.1 MG/DL Total Bilirubin 0.7 0.1-1.0 MG/DL Aspartate Amino Transf (AST/SGOT) 11 5-34 U/L Alanine Aminotransferase (ALT/SGPT) 9 0-55 U/L Alkaline Phosphatase 102 40-136 U/L Total Protein 7.0 6.4-8.2 GM/DL Albumin 4.3 3.2-4.5 GM/DL My Orders Orders - YESY TREVIZO APRN Cbc With Automated Diff (10/29/20 11:19) Comprehensive Metabolic Panel (10/29/20 11:19) Alprazolam Tablet (Xanax Tablet) (10/29/20 11:30) Medications Given in ED Current Medications Medications Dose Ordered Sig/Christopher Route Start Time Stop Time Status Last Admin Dose Admin Alprazolam 1 mg ONCE ONCE PO 10/29/20 11:30 10/29/20 11:31 DC 10/29/20 11:50 1 MG Vital Signs/I&O 10/29/20 11:30 Temp 36.3 Pulse 99 Resp 18 B/P (MAP) 115/82 (93) Pulse Ox 99 O2 Delivery Room Air Capillary Refill : Departure Impression Primary Impression: Paranoia Disposition: HOME, SELF-CARE Condition: Stable Departure-Patient Inst. Decision time for Depature: 11:35 Referrals: [facility] (PCP/Family) Primary Care Physician Patient Instructions: NO INSTRUCTIONS GIVEN Add. Discharge Instructions: 1. Return to ER for any concerns 2. Follow uo With [facility]. YESY TREVIZO TRACK MECHANIC Oct 29, 2020 11:34
[2020-10-29 11:36] LABS: BASOPHILS # (AUTO) 0.1 10^3/uL (0.0-0.1); BASOPHILS % (AUTO) 1 % (0-10); EOSINOPHILS # (AUTO) 0.2 10^3/uL (0.0-0.3); EOSINOPHILS % (AUTO) 3 % (0-10); HEMATOCRIT 45 % (40-54); HEMOGLOBIN 15.9 g/dL (13.3-17.7); LYMPHOCYTES # (AUTO) 2.2 10^3/uL (1.0-4.0); LYMPHOCYTES % (AUTO) 35 % (12-44); MEAN CORPUSCULAR HEMOGLOBIN 32 pg (25-34); MEAN CORPUSCULAR HGB CONC 35 g/dL (32-36); MEAN CORPUSCULAR VOLUME 90 fL (80-99); MEAN PLATELET VOLUME 10.2 fL (9.0-12.2); MONOCYTES # (AUTO) 0.6 10^3/uL (0.0-1.0); MONOCYTES % (AUTO) 9 % (0-12); NEUTROPHILS # (AUTO) 3.1 10^3/uL (1.8-7.8); NEUTROPHILS % (AUTO) 51 % (42-75); PLATELET COUNT 303 10^3/uL (130-400); WHITE BLOOD COUNT 6.1 10^3/uL (4.3-11.0)
[2020-10-29 11:47] LABS: ALBUMIN 4.3 GM/DL (3.2-4.5); CHLORIDE 106 MMOL/L (98-107); POTASSIUM 4.3 MMOL/L (3.6-5.0); SODIUM 138 MMOL/L (135-145)
[2020-10-29 11:48] LABS: CALCIUM 9.1 MG/DL (8.5-10.1)
[2020-10-29 11:49] LABS: GLUCOSE 108 MG/DL (70-105)
[2020-10-29 11:50] LABS: CARBON DIOXIDE 21 MMOL/L (21-32)
[2020-10-29 11:51] LABS: BILIRUBIN,TOTAL 0.7 MG/DL (0.1-1.0)
[2020-10-29 11:53] LABS: ALKALINE PHOSPHATASE 102 U/L (40-136); CREATININE SERUM 1.04 MG/DL (0.60-1.30); GFR ESTIMATED > 60
[2020-10-29 11:54] LABS: BUN/CREATININE RATIO 16
[2020-10-29 11:56] LABS: ALANINE AMINOTRANSFERASE 9 U/L (0-55)
[2020-10-29 13:33] VITALS: BP 113/78
== END 2020-10-29 13:37 | disposition home or self-care (01) ==
LOC: EDUNIT# 11:15 → ER 11:18
DX: F22 Delusional disorders (principal); Z87.891 Personal history of nicotine dependence
CPT/HCPCS: 36415; 80053; 85025

== ENCOUNTER 2020-11-08 07:58 | Emergency (ER) | payer MEDICARE, MEDICAID ==
[~2020-11-08] VITALS: Ht 177 cm; Wt 64.0 kg
--- NOTE | 2020-11-08 09:07 | ED Psychosocial ---
General Stated Complaint: PSYCH EVAL -SUICIDAL IDEATIONS Source: patient Exam Limitations: no limitations History of Present Illness Date Seen by Provider: Nov 08, 2020 Time Seen by Provider: 08:56 Initial Comments Patient to the ER by private conveyance chief complaint of suicidal ideation off and on for the past several weeks. Today he has a plan to use his own pills to kill himself. He has not anything to harm himself. He is not having fever cough chills nausea vomiting diarrhea chest pain, shortness of breath abdominal pain or diarrhea. Allergies and Home Medications Allergies Coded Allergies: No Known Drug Allergies (Unverified , 01/04/19) Home Medications [place] Carbonate 300 Mg Capsule, 300 MG PO BID, (Reported) Patient Home Medication List Home Medication List Reviewed: Yes Review of Systems Constitutional: No chills, No diaphoresis EENTM: No ear discharge, No hearing loss Respiratory: No cough, No short of breath Cardiovascular: No edema, No palpitations Gastrointestinal: No abdominal pain, No nausea, No vomiting Genitourinary: No discharge, No dysuria Musculoskeletal: No back pain, No joint pain Skin: No pruritus, No rash Psychiatric/Neurological: Denies Headache, Denies Numbness All Other Systems Reviewed Negative Unless Noted: Yes Past Euaxwdy-Cjrhcc-Ooadul Hx Patient Social History Alcohol Use: Denies Use Drug of Choice: METHAMPHETAMINE, HEROIN, THC--DENIES IV USE Smoking Status: Former Smoker Type Used: Cigarettes Former Smoker, Quit: Aug 23, 2020 2nd Hand Smoke Exposure: No Recent Hopitalizations: No Immunizations Up To Date Tetanus Booster (TDap): Unknown Date of Influenza Vaccine: Feb 10, 2021 Seasonal Allergies Seasonal Allergies: Yes Past Medical History Surgeries: Yes (HERNIA REPAIR, prostate removed) Abdominal, Transurethral Resection Respiratory: No Cardiac: No Neurological: No Genitourinary: Yes (S/P TURP) Benign Prostatic Hyperpl, Prostate Problems Gastrointestinal: Yes (LEFT INGUINAL HERNIA) Abdominal Hernia Musculoskeletal: No Endocrine: No HEENT: No Cancer: No Psychosocial: Yes ("BIPOLAR TYPE 2-SCHIZOID NO DILUSIONS";SUICIDAL IDEATIONS;POLYSUBSTANCE ABU) Sleep Difficulties, Anxiety, Suicide Attempts, Bipolar, Schizophrenia, Depression Integumentary: No Blood Disorders: No Family Medical History No Pertinent Family Hx SOCIAL HISTORY: -ETOH--2-3 MIXED DRINKS A DAY. NONE FOR 2-3 MONTHS, PER PT ON 09/23/20 -DRUGS--METHAMPHETAMINES, BLACK TAR HEROIN, THC. DENIES IV USE. CLAIMS NO USE FOR 2 WEEKS, PER PT ON 09/23/20 -SMOKED 1 PPD, STATES HE QUIT 2-3 MONTHS AGO, PER PT ON 09/23/20 ADDITIONAL HISTORY: -MULTIPLE PSYCH ADMITS, INCLUDING [place] [facility] [facility], [facility], [facility], [facility], OTHERS. LONG HISTORY OF HOMELESSNESS, LIVING IN LOCAL HOTELS AT INTERVALS Physical Exam Vital Signs - First Documented 11/08/20 09:00 Pulse 94 Resp 18 B/P (MAP) 172/105 (127) Pulse Ox 95 O2 Delivery Room Air Capillary Refill : Height, Weight, BMI Height: 5'10.00" Weight: 150lbs. oz. 68.333136zu; 20.00 BMI Method:Stated General Appearance: WD/WN, no apparent distress HEENT: PERRL/EOMI, normal ENT inspection Neck: full range of motion, supple, normal inspection Respiratory: lungs clear, normal breath sounds, no respiratory distress, no accessory muscle use Cardiovascular: normal peripheral pulses, regular rate, rhythm Peripheral Pulses: 2+ Radial Pulses (R), 2+ Radial Pulses (L) Gastrointestinal: normal bowel sounds, non tender, soft Extremities: normal range of motion, non-tender, normal capillary refill Neurologic/Psychiatric: no motor/sensory deficits, alert, normal mood/affect, oriented x 3 Appearance/Memory: appropriate appearance, appropriate insight Behavior/Eye Contact: cooperative, good eye contact, normal speech Thoughts/Hallucinations: normal thought pattern, no apparent hallucination, other (Endorses suicidal ideation with a plan passively but no action on it yet. No homicidal ideation.) Progress/Results/Core Measures Results/Orders Lab Results Laboratory Tests Test 11/08/20 09:34 11/08/20 09:37 11/08/20 09:50 Range/Units Urine Color YELLOW Urine Clarity CLEAR Urine pH 7.0 5-9 Urine Specific [place] 1.020 1.016-1.022 Urine Protein NEGATIVE NEGATIVE Urine Glucose (UA) NEGATIVE NEGATIVE Urine Ketones NEGATIVE NEGATIVE Urine Nitrite NEGATIVE NEGATIVE Urine Bilirubin NEGATIVE NEGATIVE Urine Urobilinogen 0.2 < = 1.0 MG/DL Urine Leukocyte Esterase NEGATIVE NEGATIVE Urine RBC (Auto) NEGATIVE NEGATIVE Urine RBC NONE /HPF Urine WBC 0-2 /HPF Urine Crystals NONE /LPF Urine Bacteria NEGATIVE /HPF Urine Casts NONE /LPF Urine Mucus NEGATIVE /LPF Urine Culture Indicated NO Urine Opiates Screen NEGATIVE NEGATIVE Urine Oxycodone Screen NEGATIVE NEGATIVE Urine Methadone Screen NEGATIVE NEGATIVE Urine Propoxyphene Screen NEGATIVE NEGATIVE Urine Barbiturates Screen NEGATIVE NEGATIVE Ur Tricyclic Antidepressants Screen NEGATIVE NEGATIVE Urine Phencyclidine Screen NEGATIVE NEGATIVE Urine Amphetamines Screen NEGATIVE NEGATIVE Urine Methamphetamines Screen NEGATIVE NEGATIVE Urine Benzodiazepines Screen NEGATIVE NEGATIVE Urine Cocaine Screen NEGATIVE NEGATIVE Urine Cannabinoids Screen NEGATIVE NEGATIVE SARS-CoV-2 RNA (RT-PCR) Not Detected Not Detecte White Blood Count 9.2 4.3-11.0 10^3/uL Red Blood Count 4.56 4.30-5.52 10^6/uL Hemoglobin 14.2 13.3-17.7 g/dL Hematocrit 41 40-54 % Mean Corpuscular Volume 91 80-99 fL Mean Corpuscular Hemoglobin 31 25-34 pg Mean Corpuscular Hemoglobin Concent 34 32-36 g/dL Red Cell Distribution Width 12.6 10.0-14.5 % Platelet Count 274 130-400 10^3/uL Mean Platelet Volume 9.9 9.0-12.2 fL Immature Granulocyte % (Auto) 1 % Neutrophils (%) (Auto) 82 H 42-75 % Lymphocytes (%) (Auto) 11 L 12-44 % Monocytes (%) (Auto) 6 0-12 % Eosinophils (%) (Auto) 0 0-10 % Basophils (%) (Auto) 1 0-10 % Neutrophils # (Auto) 7.5 1.8-7.8 10^3/uL Lymphocytes # (Auto) 1.0 1.0-4.0 10^3/uL Monocytes # (Auto) 0.6 0.0-1.0 10^3/uL Eosinophils # (Auto) 0.0 0.0-0.3 10^3/uL Basophils # (Auto) 0.1 0.0-0.1 10^3/uL Immature Granulocyte # (Auto) 0.1 0.0-0.1 10^3/uL Sodium Level 136 135-145 MMOL/L Potassium Level 3.8 3.6-5.0 MMOL/L Chloride Level 104 98-107 MMOL/L Carbon Dioxide Level 20 L 21-32 MMOL/L Anion Gap 12 5-14 MMOL/L Blood Urea Nitrogen 16 7-18 MG/DL Creatinine 0.90 0.60-1.30 MG/DL Estimat Glomerular Filtration Rate > 60 BUN/Creatinine Ratio 18 Glucose Level 117 H 70-105 MG/DL Calcium Level 8.8 8.5-10.1 MG/DL Corrected Calcium 8.8 8.5-10.1 MG/DL Total Bilirubin 0.6 0.1-1.0 MG/DL Aspartate Amino Transf (AST/SGOT) 16 5-34 U/L Alanine Aminotransferase (ALT/SGPT) 11 0-55 U/L Alkaline Phosphatase 86 40-136 U/L Total Protein 6.8 6.4-8.2 GM/DL Albumin 4.0 3.2-4.5 GM/DL Salicylates Level < 5.0 L 5.0-20.0 MG/DL Acetaminophen Level < 10 L 10-30 UG/ML Serum Alcohol < 10 <10 MG/DL My Orders Orders - TORI MORALES 19 Inhouse Test (11/08/20 09:04) Ua Culture If Indicated (11/08/20 09:04) Cbc With Automated Diff (11/08/20 09:04) Comprehensive Metabolic Panel (11/08/20 09:04) Alcohol (11/08/20 09:04) Drug Screen Stat (Urine) (11/08/20 09:04) Acetaminophen (11/08/20 09:04) Salicylate (11/08/20 09:04) Ekg Tracing (11/08/20 09:04) Monitor-Rhythm Ecg Trace Only (11/08/20 09:04) Bh Status Checks/Observation Q15M (11/08/20 09:04) General/Regular (11/08/20 Lunch) Vital Signs/I&O 11/08/20 09:00 Pulse 94 Resp 18 B/P (MAP) 172/105 (127) Pulse Ox 95 O2 Delivery Room Air Progress Progress Note #1: Time: 10:59 Progress Note Blood work and physical exam are unremarkable. Patient is cleared medically. We will have telemental health speak with him and decide appropriate disposition. Progress Note #2: Time: 18:27 Progress Note We have received rejection from all local inpatient psychiatric facilities due to unavailable beds or disinterested in admitting him. Explained this to him and offered him a [facility] which she declined. He is calling a friend to get a ride home. We have set up a safety plan through [facility] and given him 232 save his number. Care of the patient has been transferred to Dr. Chery at this time Patient mated that he was out of his hotel room because he does not have his disability check yet. He asked if we could give him some money for hotel room until he gets his disability check. At this time we encouraged him to go to [facility] if he was homeless and he declined again. Departure Impression Primary Impression: Passive suicidal ideations Disposition: 01 HOME, SELF-CARE Condition: Stable Departure-Patient Inst. Decision time for Depature: 18:28 Referrals: [facility] (PCP/Family) Primary Care Physician Patient Instructions: OUTPT MENTAL HEALTH SERVICES, Suicide Prevention Add. Discharge Instructions: [address] Karlos MORALESTORI Nov 08, 2020 09:07
[2020-11-08 09:42] LABS: BILIRUBIN,URINE NEGATIVE (NEGATIVE); CLARITY,URINE CLEAR; COLOR,URINE YELLOW; GLUCOSE, URINE (UA) NEGATIVE (NEGATIVE); KETONES,URINE NEGATIVE (NEGATIVE); LEUKOCYTE ESTERASE ,URINE NEGATIVE (NEGATIVE); NITRITE,URINE NEGATIVE (NEGATIVE); PROTEIN,URINE NEGATIVE (NEGATIVE)
[2020-11-08 09:53] LABS: AMPHETAMINE SCREEN, URINE NEGATIVE (NEGATIVE); BARBITURATE SCREEN URINE NEGATIVE (NEGATIVE); BENZODIAZEPINES SCREEN URINE NEGATIVE (NEGATIVE); CANNABINOID SCREEN, URINE NEGATIVE (NEGATIVE); COCAINE SCREEN URINE NEGATIVE (NEGATIVE); METHADONE STAT NEGATIVE (NEGATIVE); METHAMPHETAMINE SCREEN URINE S NEGATIVE (NEGATIVE); OPIATE SCREEN URINE NEGATIVE (NEGATIVE); TRICYCLIC ANTIDEPRESSANTS SCRE NEGATIVE (NEGATIVE)
[2020-11-08 09:54] LABS: OXYCODONE STAT NEGATIVE (NEGATIVE); PROPOXYPHENE STAT NEGATIVE (NEGATIVE)
[2020-11-08 09:56] LABS: BASOPHILS # (AUTO) 0.1 10^3/uL (0.0-0.1); BASOPHILS % (AUTO) 1 % (0-10); EOSINOPHILS % (AUTO) 0 % (0-10); HEMATOCRIT 41 % (40-54); HEMOGLOBIN 14.2 g/dL (13.3-17.7); LYMPHOCYTES % (AUTO) 11 % (12-44); MEAN CORPUSCULAR HEMOGLOBIN 31 pg (25-34); MEAN CORPUSCULAR HGB CONC 34 g/dL (32-36); MEAN CORPUSCULAR VOLUME 91 fL (80-99); MEAN PLATELET VOLUME 9.9 fL (9.0-12.2); MONOCYTES # (AUTO) 0.6 10^3/uL (0.0-1.0); MONOCYTES % (AUTO) 6 % (0-12); NEUTROPHILS # (AUTO) 7.5 10^3/uL (1.8-7.8); NEUTROPHILS % (AUTO) 82 % (42-75); PLATELET COUNT 274 10^3/uL (130-400); WHITE BLOOD COUNT 9.2 10^3/uL (4.3-11.0)
[2020-11-08 10:00] LABS: BACTERIA,URINE NEGATIVE /HPF; WBC,URINE 0-2 /HPF
[2020-11-08 10:08] LABS: CHLORIDE 104 MMOL/L (98-107); POTASSIUM 3.8 MMOL/L (3.6-5.0); SODIUM 136 MMOL/L (135-145)
[2020-11-08 10:10] LABS: CALCIUM 8.8 MG/DL (8.5-10.1)
[2020-11-08 10:11] LABS: GLUCOSE 117 MG/DL (70-105); TOTAL PROTEIN 6.8 GM/DL (6.4-8.2)
[2020-11-08 10:12] LABS: CARBON DIOXIDE 20 MMOL/L (21-32)
[2020-11-08 10:13] LABS: BILIRUBIN,TOTAL 0.6 MG/DL (0.1-1.0)
[2020-11-08 10:15] LABS: ALKALINE PHOSPHATASE 86 U/L (40-136); GFR ESTIMATED > 60
[2020-11-08 10:16] LABS: BUN/CREATININE RATIO 18
[2020-11-08 10:17] LABS: ACETAMINOPHEN < 10 UG/ML (10-30)
[2020-11-08 10:18] LABS: ALANINE AMINOTRANSFERASE 11 U/L (0-55); SALICYLATE < 5.0 MG/DL (5.0-20.0)
[2020-11-08 18:52] VITALS: BP 172/105
== END 2020-11-08 18:54 | disposition home or self-care (01) ==
LOC: EDUNIT# 07:58 → ER 08:00
DX: R45.851 Suicidal ideations (principal); F31.9 Bipolar disorder, unspecified; F20.9 Schizophrenia, unspecified; Z91.5 Personal history of self-harm; Z87.891 Personal history of nicotine dependence; Z20.822 Contact with and (suspected) exposure to COVID-19
CPT/HCPCS: 80053; 80306; 81000; 85025; 87636; 93005; 99283; G0480 ×3; 36415; 80320; 80329

== ENCOUNTER 2021-03-08 12:12 | Emergency (ER) | payer MEDICARE, MEDICAID ==
[~2021-03-08] VITALS: Ht 165 cm; Wt 68.0 kg
[2021-03-08 12:13] VITALS: BP 119/97
--- OUTSIDE RECORDS SUMMARY | 2021-03-08 12:16 | XMS REPORT | Encounter Summary ---
Author Author [facility] [place] Address Unknown Phone Unavailable Care Team Providers Care Marine Service Station Attendant Name Role Phone Unassigned, None PCP Unavailable Encounter Details Care Team Description Date Type Department Link, Onbase 01/08/2021 OnBase Clinic [facility] saul Scan [address] [id number] DONNA [place] [id number] Social History Date Tobacco Use Types Packs/Day Years Used Current Every Day Smoker 0 Smokeless Tobacco: Never Used Comments Alcohol Use Standard Drinks/Week Not Currently 0 (1 standard drink = 0.6 o z pure alcohol) Control Partners Comments Sexually Active Not Currently Sex Assigned at Date Recorded Male 03/01/2019 2:19 PM CDT documented as of this encounter Plan of Treatment Not on filedocumented as of this encounter Visit Diagnoses Not on filedocumented in this encounter Additional Health Concerns Noted Time Assessment 03/09/2019 8:00 AM CDT A fall risk assessment has been complet ed for the patient documented as of this encounter Care Teams Start Date End Date Marine Service Station Attendant Relationship Specialty 03/01/19 Unassigned, None PCP - General [place] documented as of this encounter
--- OUTSIDE RECORDS SUMMARY | 2021-03-08 12:16 | XMS REPORT | Clinical Summary ---
Author Author [facility] Address Unknown Phone Unavailable Care Team Providers Care Crap Shooter Name Role Phone Unassigned, None PCP Unavailable Allergies Comments Active Allergy Reactions Severity Noted Date Sneezing Pollen Extract Other (See 03/07/2019 Comments) Medications End Date Status Medication Sig Dispensed Refills Start Date Active lamoTRIgine (LAMICTAL) 25 Take 1 tab 60 tablet 0 03/09/201 MG tabletIndications: daily for 1 9 Bipolar I disorder, week then current or most recent take tablets episode manic, with daily psychotic features (HCC) Active buPROPion (WELLBUTRIN XL) Take 1 tablet 30 tablet 0 300 MG 24 hr (300 mg 9 tabletIndications: total) by Bipolar I disorder, mouth daily. current or most recent episode manic, with psychotic features (HCC) Active traZODone (DESYREL) 100 Take 2 60 tablet 0 /201 MG tabletIndications: tablets (200 9 Insomnia mg total) by mouth at bedtime as needed for Sleep. Indications: Trouble Sleeping Active OLANZapine (ZYPREXA) 10 Take 1 tablet 30 tablet 0 03/09/201 MG tabletIndications: (10 mg total) 9 Bipolar Mood Disorder by mouth at bedtime. Indications: Manic-Depress ion Active Problems Problem Noted Date GABRIEL (generalized anxiety disorder) 03/02/2019 PTSD (post-traumatic stress disorder) 03/02/2019 Bipolar I disorder, current or most recent episode ma monse, with psychotic 03/01/2019 features Resolved Problems Problem Noted Date Resolved Date Suicide ideation 03/01/2019 03/09/2019 Encounters Care Team Description Date Type Specialty Link, Onbase 01/08/2021 OnBase Clinic Scan from Last 3 Months Immunizations Name Administration Dates Next Due INFLUENZA A&B TRIVALENT 03/02/2019 VAC ADJUVANTED PF (Adults=>65 y/o-FLUAD) Pneumococcal Conjugate 03/09/2019 (13-valent) Family History Medical History Relation Name Comments Alcohol abuse Father Mental illness Father Relation Name Status Comments Father Social History Date Tobacco Use Types Packs/Day Years Used Current Every Day Smoker 0 Smokeless Tobacco: Never Used Comments Alcohol Use Standard Drinks/Week Not Currently 0 (1 standard drink = 0.6 o z pure alcohol) Control Partners Comments Sexually Active Not Currently Sex Assigned at Date Recorded Male 03/01/2019 2:19 PM CDT Last Filed Vital Signs Reading Time Taken Comments Vital Sign 96/58 03/09/2019 5:41 AM CDT Blood Pressure 81 03/09/2019 5:41 AM CDT Pulse 36.8 C (98.3 F) 03/09/2019 5:40 AM CDT Temperature 16 03/09/2019 5:41 AM CDT Respiratory Rate 96% 03/09/2019 5:40 AM CDT Oxygen Saturation - - Inhaled Oxygen Concentration 65.8 kg (145 lb) 11/08/2020 5:06 PM CDT Weight 177.8 cm (5' 10") 11/08/2020 5:06 PM CDT Height 20.81 11/08/2020 5:06 PM CDT Body Mass Index Plan of Treatment Health Maintenance Due Date Last Done Comments Annual Wellness Visit 08/28/1971 Hepatitis C Screening 08/28/1971 DTaP,Tdap,and Td Vaccines 1972 (1 - Tdap) Colon Cancer Screening 08/28/2003 Zoster Vaccine (1 of 2) 08/28/2003 Pneumo-Vaccine: 65+Yrs (1 05/04/2019 03/09/2019 of 2 - PPSV23) Pneumo-Vaccine: Peds (0-5 05/04/2019 03/09/2019 Yrs) & At-Risk Patients (6-64 Yrs) (1 of 2 - PPSV23) Influenza Vaccine (#1) 2021 03/02/2019 COVID-19 Vaccine Completed 08/03/2020, 07/06/2020 HIB Vaccines Aged Out No longer eligible based on patient's age to complete this topic IPV Vaccines Aged Out No longer eligible based on patient's age to complete this topic Meningococcal Vaccine Aged Out No longer eligib le based on patient's age to complete this topic Rotavirus Vaccines Aged Out No longer eligible based on patient's age to complete this topic Results Not on filefrom Last 3 Months Insurance Type Payer Benefit Subscriber ID Effective Phone Address Plan / Dates Group Medicare MEDICARE SOLUTIONS BY [facility] MEDICARE [id number] 2018-P [phone] [address] [facility] [place] [address] [place] [address] Advance Directives For more information, please contact: [phone] Patient Joint Terminal Attack Controller Explanation Type Date Recorded Advance Directives and Living Will Power of De Icer Element Winder Date Inactivated Comments Code Status Date Activated Full Code 03/09/2019 10:09 AM 03/09/2019 10:09 AM Full Code 03/01/2019 3:14 PM Care Teams Start Date End Date Crap Shooter Relationship Specialty 03/01/19 Unassigned, None PCP - General [place]
--- NOTE | 2021-03-08 12:20 | ED Psychosocial ---
General Stated Complaint: SUICIDAL Source: patient Exam Limitations: no limitations (YESY TREVIZO APRN) History of Present Illness Date Seen by Provider: Mar 08, 2021 Time Seen by Provider: 12:17 Initial Comments To ER by EMS from [place] with reports of thoughts of suicide. Has had this many times before. He is never attempted suicide. He states that he is paranoid and needs inpatient help. Timing/Duration: constant Severity: moderate (YESY TREVIZO APRN) Allergies and Home Medications Allergies Coded Allergies: No Known Drug Allergies (Unverified , 01/04/19) Patient Home Medication List Home Medication List Reviewed: Yes (YESY TREVIZO APRN) [place] Carbonate ([place] Carbonate) 300 Mg Capsule, 300 MG PO BID, (Reported) Entered as Reported by: LINDA CHRIS on 09/08/20 1051 Olanzapine (Zyprexa) 5 Mg Tablet, 5 MG PO DAILY Prescribed by: YESY TREVIZO on 03/08/21 1242 Review of Systems Constitutional: see HPI EENTM: see HPI Respiratory: no symptoms reported Cardiovascular: no symptoms reported Genitourinary: no symptoms reported Musculoskeletal: no symptoms reported Skin: no symptoms reported Psychiatric/Neurological: See HPI (YESY TREVIZO APRN) Past Hywnqop-Imalcr-Bdskbc Hx Immunizations Up To Date Tetanus Booster (TDap): Unknown (YESY TREVIZO APRN) Seasonal Allergies Seasonal Allergies: Yes (YESY TREVIZO APRN) Past Medical History Surgeries: Yes (HERNIA REPAIR, prostate removed) Abdominal, Transurethral Resection Respiratory: No Cardiac: No Neurological: No Genitourinary: Yes (S/P TURP) Benign Prostatic Hyperpl, Prostate Problems Gastrointestinal: Yes (LEFT INGUINAL HERNIA) Abdominal Hernia Musculoskeletal: No Endocrine: No HEENT: No Cancer: No Psychosocial: Yes ("BIPOLAR TYPE 2-SCHIZOID NO DILUSIONS";SUICIDAL IDEATIONS;POLYSUBSTANCE ABU) Sleep Difficulties, Anxiety, Suicide Attempts, Bipolar, Schizophrenia, Depression Integumentary: No Blood Disorders: No (YESY TREVIZO APRN) Family Medical History No Pertinent Family Hx SOCIAL HISTORY: -ETOH--2-3 MIXED DRINKS A DAY. NONE FOR 2-3 MONTHS, PER PT ON 09/23/20 -DRUGS--METHAMPHETAMINES, BLACK TAR HEROIN, THC. DENIES IV USE. CLAIMS NO USE FOR 2 WEEKS, PER PT ON 09/23/20 -SMOKED 1 PPD, STATES HE QUIT 2-3 MONTHS AGO, PER PT ON 09/23/20 ADDITIONAL HISTORY: -MULTIPLE PSYCH ADMITS, INCLUDING [place] [facility] [facility], [facility], [facility], [facility], OTHERS. LONG HISTORY OF HOMELESSNESS, LIVING IN LOCAL HOTELS AT INTERVALS (YESY TREVIZO APRN) Physical Exam Vital Signs - First Documented 03/08/21 12:13 Temp 36.0 Pulse 100 Resp 18 B/P (MAP) 119/97 (104) (BOAZ MATA DO) Capillary Refill : (YESY TREVIZO APRN) Height, Weight, BMI Height: 5'10.00" Weight: 150lbs. oz. 68.610890ue; 20.00 BMI Method:Stated General Appearance: WD/WN, no apparent distress, other (He alert, cooperative, he is known to be very manipulative. He has the same story every time he comes in which is to state that he is recently been evicted from the hotel that he is staying in, has been off of his medications, plans to overdose. He will often openly admit that he is making the statements only to have a place to stay.) Neck: non-tender, full range of motion Respiratory: no respiratory distress, no accessory muscle use Cardiovascular: regular rate, rhythm, no murmur Gastrointestinal: normal bowel sounds, non tender Extremities: normal range of motion, non-tender Neurologic/Psychiatric: alert, normal mood/affect, oriented x 3 Appearance/Memory: appropriate appearance, appropriate insight Thoughts/Hallucinations: normal thought pattern, no apparent hallucination Skin: normal color, warm/dry (YESY TREVIZO APRN) Departure Communication (Admissions) Spoke with Param torres from [facility] and I recommended to him outpatient services. We gave the patient Zyprexa here which she was reluctant t o take it first. It is unclear to me why he would want to go inpatient if he does not want the medications offered here for his symptoms. Ultimately he conceded and took the medication. I will provide him with [facility] phone number and have him call them for follow-up outpatient. (YESY TREVIZO APRN) Impression Primary Impression: Paranoia Disposition: 01 HOME, SELF-CARE Condition: Critical Departure-Patient Inst. Decision time for Depature: 12:19 (YESY TREVIZO APRN) Referrals: [facility] (PCP/Family) Primary Care Physician Patient Instructions: NO INSTRUCTIONS GIVEN Add. Discharge Instructions: 1. Called [facility] at [phone] for follow-up. I have sent medication for you to [facility] pharmacy across the street.. Scripts Olanzapine (Zyprexa) 5 Mg Tablet 5 MG PO DAILY, #10 TAB Prov: YESY TREVIZO APRN 03/08/21 ATTENDING PHYSICIAN NOTE: I WAS PHYSICALLY PRESENT ER PHYSICIAN WHILE THIS PT WAS IN ER, BUT I WAS NOT INVOLVED IN ANY DECISION MAKING OR ANY CARE OF THIS PATIENT. (BOAZ MATA DO) YESY TREVIZO APRN Mar 08, 2021 12:20 BOAZ MATA DO Mar 10, 2021 21:38
[2021-03-08] MEDS ORDERED: OLANZapine 5 MG ODT (ZyPREXA ZYDIS) PO ONE (12:30)
[2021-03-08] MEDS ORDERED: OLAN5TAB3 PO (12:42)
== END 2021-03-08 13:00 | disposition home or self-care (01) ==
LOC: EDUNIT# 12:12 → ER 12:13
DX: F22 Delusional disorders (principal); F20.9 Schizophrenia, unspecified; F31.9 Bipolar disorder, unspecified; Z79.899 Other long term (current) drug therapy

== ENCOUNTER 2021-03-11 19:32 | Emergency (ER) | payer MEDICARE, MEDICAID ==
[~2021-03-11] VITALS: Ht 177.8 cm; Wt 67.0 kg
[~2021-03-11 19:32] MED LIST changes: +OLAN5TAB3 PO
--- NOTE | 2021-03-12 00:28 | ED Psychosocial ---
General Stated Complaint: SUICIDAL IDEATIONS Source: patient, old records History of Present Illness Date Seen by Provider: Mar 12, 2021 Time Seen by Provider: 00:03 Initial Comments PT ARRIVES BY WALKING, CARRYING BACK PACK AND BAGS WITH HIM PT STATES "I'VE HAD SOME STRESS AND SUICIDAL IDEATIONS" STATES HIS PLAN IS "POSSIBLE DRUG OVERDOSE" --STATES F[place]L "OFF THE STREET" PT HAS NOT MADE ANY ATTEMPT TO OVERDOSE OR TO OBTAIN ANY [place] STATES HE HAS BEEN FEELING LIKE THIS "FOR 2 WEEKS" PT HAS LONGSTANDING HISTORY OF THIS COMPLAINT--ALTHOUGH PT HAS NEVER ACTUALLY ATTEMPTED SUICIDE PT BRINGS MULTIPLE BOTTLES OF MEDICATIONS --ALL PRESCRIBED IN AUGUST OF THIS YEAR, AND ALL APPROXIMATELY HALF FULL PT STATES HE HAS NOT BEEN TAKING ANY MEDICATIONS, DESPITE PT'S STATEMENT OF "DRUG OVERDOSE" HE OBVIOUSLY IS NOT TAKING HIS PRESCRIBED MEDICATIONS, AND HAS AN ABUNDANCE OF PILLS WHICH HE COULD OVERDOSE WITH, AND YET HE HAS NEVER ACTUALLY OVERDOSED ON ANYTHING PT HAS THE FOLLOWING PILLS WITH HIM: -BENZTROPINE 0.5 MG #30 PRESCRIBED 08/24/20 BY AYSE HERNANDEZ, #23 LEFT IN BOTTLE -LITHIUM 300 MG #60 PRESCRIBED ON 08/24/20 BY AYSE HERNANDEZ, #51 LEFT IN BOTTLE -LITHIUM 300 MG #60 PRESCRIBED 09/08/[address] JULIEN, #37 LEFT IN BOTTLE -CITALOPRAM 20 MG #30 PRESCRIBED 09/08/[address] JULIEN, #19 LEFT IN BOTTLE -LITHIUM 300 MG #30 PRESCRIBED 12/02/[address] BROWNLEE, #25 LEFT IN BOTTLE -ALSO A BOTTLE OF 2 UNIDENTIFIED PILLS--LABEL HAS BEEN SCRAPED OFF OVER NAME OF PT , NAME OF MEDICATION/DATE, AND NAME OF PROVIDER PT WITH MULTITUDE OF VISITS HERE FOR SAME PT WITH LONG HISTORY OF EXTREMELY MANIPULATIVE BEHAVIOR PT WITH LONGSTANDING HOMELESSNESS, AND LIVES AT VARIOUS LOCAL HOTELS AT INTERVALS, AND TYPICALLY GETS EVICTED FROM THEM WHEN HE RUNS OUT OF MONEY--USUALLY TOWARDS THE END OF THE MONTH. HIS TYPICAL BEHAVIOR IS THEN TO PRESENT TO ER REPORTING SUICIDAL IDEATIONS PT OPENLY ADMITS THAT HE IS HERE TO HAVE A PLACE TO STAY PT STATES HE WAS EVICTED FROM LOCAL HOTEL "3-4 DAYS AGO" AND HAS BEEN THE STREET SINCE THEN. PT STATES HE WAS AT A "FRIEND'S HOUSE" EARLIER TODAY, BUT GIVES NO REASON WHY HE IS NOT STAYING THERE, ONLY STATES "IT WOULD BE AWKWARD" PT HAS REPEATEDLY BEEN OFFERED A RIDE TO [facility] IN [facility], AND HE HAS REPEATEDLY REFUSED THIS OPTION. 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 PT HAS NOT ATTEMPTED TO CONTACT [facility] AT ANY TIME, AND THIS NUMBER HAS BEEN GIVEN TO PT AT EVERY VISIT PT HAS REPEATEDLY MADE NO EFFORT WHATSOEVER TO TAKE PRESCRIBED MEDICATIONS, OR TO FOLLOW UP WITH ANYONE AT ANY TIME PCP: [facility]: [facility] Allergies and Home Medications Allergies Coded Allergies: No Known Drug Allergies (Unverified , 01/04/19) Patient Home Medication List Home Medication List Reviewed: Yes [place] Carbonate ([place] Carbonate) 300 Mg Capsule, 300 MG PO BID, (Reported) Entered as Reported by: LINDA CHRIS on 09/08/20 1051 Olanzapine (Zyprexa) 5 Mg Tablet, 5 MG PO DAILY Prescribed by: YESY TREVIZO on 03/08/21 1242 Review of Systems Constitutional: no symptoms reported Respiratory: no symptoms reported Cardiovascular: no symptoms reported Gastrointestinal: no symptoms reported Genitourinary: no symptoms reported Musculoskeletal: no symptoms reported Psychiatric/Neurological: See HPI Past Telroix-Tyszqd-Joxbrj Hx Immunizations Up To Date Tetanus Booster (TDap): Unknown First/Initial COVID19 Vaccinat: JAN Second COVID19 Vaccination Boubacar: JAN Seasonal Allergies Seasonal Allergies: Yes Past Medical History Surgeries: Yes (HERNIA REPAIR,) Abdominal, Transurethral Resection Respiratory: No Cardiac: No Neurological: No Genitourinary: Yes (S/P TURP) Benign Prostatic Hyperpl, Prostate Problems Gastrointestinal: Yes (LEFT INGUINAL HERNIA) Abdominal Hernia Musculoskeletal: No Endocrine: No HEENT: No Cancer: No Psychosocial: Yes ("BIPOLAR TYPE 2-SCHIZOID NO DILUSIONS";SUICIDAL IDEATIONS;POLYSUBSTANCE ABU) Sleep Difficulties, Anxiety, Suicide Attempts, Bipolar, Schizophrenia, De pression Integumentary: No Blood Disorders: No Family Medical History No Pertinent Family Hx SOCIAL HISTORY: -ETOH--2-3 MIXED DRINKS A DAY. NONE FOR 2-3 MONTHS, PER PT ON 09/23/20 -DRUGS--METHAMPHETAMINES, BLACK TAR HEROIN, THC. DENIES IV USE. CLAIMS NO USE FOR 2 WEEKS, PER PT ON 09/23/20 -SMOKED 1 PPD, STATES HE QUIT 2-3 MONTHS AGO, PER PT ON 09/23/20 ADDITIONAL HISTORY: -MULTIPLE PSYCH ADMITS, INCLUDING [place] [facility], [facility], [facility], [facility], OTHERS. LONG HISTORY OF HOMELESSNESS, LIVING IN LOCAL HOTELS AT INTERVALS LONG HISTORY OF VERY MANIPULATIVE BEHAVIOR Physical Exam Vital Signs - First Documented 03/12/21 03/12/21 00:03 01:45 Temp 36.7 Pulse 110 Resp 20 B/P (MAP) 99/ Pulse Ox 98 O2 Delivery Room Air Capillary Refill : Height, Weight, BMI Height: 5'10.00" Weight: 150lbs. oz. [id number]; 24.00 BMI Method:Stated General Appearance: WD/WN, no apparent distress, thin, other (FLAT AFFECT) Respiratory: normal breath sounds, no respiratory distress, no accessory muscle use Cardiovascular: regular rate, rhythm, no murmur Gastrointestinal: soft Neurologic/Psychiatric: progress worker II-XII nml as tested, no motor/sensory deficits, alert, oriented x 3 Appearance/Memory: disheveled Behavior/Eye Contact: cooperative, normal speech Thoughts/Hallucinations: no apparent hallucination Skin: normal color, warm/dry Progress/Results/Core Measures Results/Orders Lab Results Laboratory Tests Test 03/12/21 00:34 03/12/21 00:51 03/12/21 00:57 Range/Units White Blood Count 6.5 4.3-11.0 10^3/uL Red Blood Count 4.42 4.30-5.52 10^6/uL Hemoglobin 13.7 13.3-17.7 g/dL Hematocrit 40 40-54 % Mean Corpuscular Volume 91 80-99 fL Mean Corpuscular Hemoglobin 31 25-34 pg Mean Corpuscular Hemoglobin Concent 34 32-36 g/dL Red Cell Distribution Width 13.1 10.0-14.5 % Platelet Count 259 130-400 10^3/uL Mean Platelet Volume 10.6 9.0-12.2 fL Immature Granulocyte % (Auto) 0 % Neutrophils (%) (Auto) 49 42-75 % Lymphocytes (%) (Auto) 35 12-44 % Monocytes (%) (Auto) 12 0-12 % Eosinophils (%) (Auto) 3 0-10 % Basophils (%) (Auto) 1 0-10 % Neutrophils # (Auto) 3.2 1.8-7.8 10^3/uL Lymphocytes # (Auto) 2.3 1.0-4.0 10^3/uL Monocytes # (Auto) 0.8 0.0-1.0 10^3/uL Eosinophils # (Auto) 0.2 0.0-0.3 10^3/uL Basophils # (Auto) 0.1 0.0-0.1 10^3/uL Immature Granulocyte # (Auto) 0.0 0.0-0.1 10^3/uL Sodium Level 140 135-145 MMOL/L Potassium Level 4.2 3.6-5.0 MMOL/L Chloride Level 105 98-107 MMOL/L Carbon Dioxide Level 23 21-32 MMOL/L Anion Gap 12 5-14 MMOL/L Blood Urea Nitrogen 14 7-18 MG/DL Creatinine 0.82 0.60-1.30 MG/DL Estimat Glomerular Filtration Rate 94 BUN/Creatinine Ratio 17 Glucose Level 100 70-105 MG/DL Calcium Level 8.8 8.5-10.1 MG/DL Corrected Calcium 8.8 8.5-10.1 MG/DL Total Bilirubin 1.0 0.1-1.0 MG/DL Aspartate Amino Transf (AST/SGOT) 34 5-34 U/L Alanine Aminotransferase (ALT/SGPT) 14 0-55 U/L Alkaline Phosphatase 91 40-136 U/L Total Protein 6.4 6.4-8.2 GM/DL Albumin 4.0 3.2-4.5 GM/DL TSH [facility] Testing 0.68 0.35-4.94 UIU/ML Salicylates Level < 5.0 L 5.0-20.0 MG/DL Acetaminophen Level < 10 L 10-30 UG/ML Serum Alcohol < 10 <10 MG/DL SARS-CoV-2 RNA (RT-PCR) Not Detected Not Detecte Urine Color YELLOW Urine Clarity CLEAR Urine pH 6.0 5-9 Urine Specific Vincent 1.025 H 1.016-1.022 Urine Protein NEGATIVE NEGATIVE Urine Glucose (UA) NEGATIVE NEGATIVE Urine Ketones TRACE H NEGATIVE Urine Nitrite NEGATIVE NEGATIVE Urine Bilirubin NEGATIVE NEGATIVE Urine Urobilinogen 1.0 < = 1.0 MG/DL Urine Leukocyte Esterase NEGATIVE NEGATIVE Urine RBC (Auto) NEGATIVE NEGATIVE Urine RBC NONE /HPF Urine WBC NONE /HPF Urine Squamous Epithelial Cells 2-5 /HPF Urine Crystals NONE /LPF Urine Bacteria NEGATIVE /HPF Urine Casts NONE /LPF Urine Mucus LARGE H /LPF Urine Other FEW SPERM H /HPF Urine Culture Indicated NO Urine Opiates Screen NEGATIVE NEGATIVE Urine Oxycodone Screen NEGATIVE NEGATIVE Urine Methadone Screen NEGATIVE NEGATIVE Urine Propoxyphene Screen NEGATIVE NEGATIVE Urine Barbiturates Screen NEGATIVE NEGATIVE Ur Tricyclic Antidepressants Screen NEGATIVE NEGATIVE Urine Phencyclidine Screen NEGATIVE NEGATIVE Urine Amphetamines Screen NEGATIVE NEGATIVE Urine Methamphetamines Screen NEGATIVE NEGATIVE Urine Benzodiazepines Screen NEGATIVE NEGATIVE Urine Cocaine Screen NEGATIVE NEGATIVE Urine Cannabinoids Screen NEGATIVE NEGATIVE My Orders Orders - WILNER MATAA K DO Urinalysis (03/12/21 00:15) Thyroid Analyzer (03/12/21 00:15) Drug Screen Stat (Urine) (03/12/21 00:15) Cbc With Automated Diff (03/12/21 00:15) Comprehensive Metabolic Panel (03/12/21 00:15) Alcohol (03/12/21 00:15) Acetaminophen (03/12/21 00:15) Salicylate (03/12/21 00:15) Ekg Tracing (03/12/21 00:15) Covid 19 Inhouse Test (03/12/21 00:56) Vital Signs/I&O 03/12/21 03/12/21 00:03 01:45 Temp 36.7 36.7 Pulse 110 99 Resp 20 18 B/P (MAP) 99/ 155/88 Pulse Ox 98 O2 Delivery Room Air Progress Progress Note : Progress Note MEDICAL SCREENING EXAM DONE PT HAS BEEN CLEARED MEDICALLY PT VOICED NO COMPLAINTS FOR ENTIRE ER STAY PT SLEPT/RESTED QUIETLY FOR ENTIRE ER STAY ADVISED PT THAT I DO NOT BELIEVE HE REQUIRES INPATIENT TREATMENT, AND PT IS AGREEABLE TO BEING DISMISSED WITHOUT ANY ARGUMENT AT ALL PT THEN WENT TO WAITING ROOM TO SLEEP, HE WAS ADVISED THAT HE WAS NOT ALLOWED TO SLEEP IN THE WAITING ROOM SINCE HE HAD BEEN DISMISSED, AND PT WAS ESCORTED OFF PROPERTY BY [place] POLICE. Initial ECG Impression Date: Mar 12, 2021 Initial ECG Impression Time: 00:26 Initial ECG Rate: 93 Initial ECG Rhythm: Normal Sinus Departure Impression Primary Impression: Homelessness Additional Impression: Passive suicidal ideations Disposition: HOME, SELF-CARE Condition: Stable Departure-Patient Inst. Referrals: [facility] (PCP/Family) Primary Care Physician Patient Instructions: OUTPT MENTAL HEALTH SERVICES, Suicide Prevention Add. Discharge Instructions: FOLLOW UP WITH [facility] THIS WEEK FOR FURTHER CARE--CALL IN THE MORNING TO SCHEDULE APPOINTMENTS FOR MENTAL HEALTH, WELL FOR ROUTINE MEDICAL CARE. CALL [phone] IF YOU HAVE WORSENING OF YOUR SYMPTOMS BOAZ MATA DO Mar 12, 2021 00:28
[2021-03-12 00:40] LABS: BASOPHILS # (AUTO) 0.1 10^3/uL (0.0-0.1); BASOPHILS % (AUTO) 1 % (0-10); EOSINOPHILS # (AUTO) 0.2 10^3/uL (0.0-0.3); EOSINOPHILS % (AUTO) 3 % (0-10); HEMATOCRIT 40 % (40-54); HEMOGLOBIN 13.7 g/dL (13.3-17.7); LYMPHOCYTES # (AUTO) 2.3 10^3/uL (1.0-4.0); LYMPHOCYTES % (AUTO) 35 % (12-44); MEAN CORPUSCULAR HEMOGLOBIN 31 pg (25-34); MEAN CORPUSCULAR HGB CONC 34 g/dL (32-36); MEAN CORPUSCULAR VOLUME 91 fL (80-99); MEAN PLATELET VOLUME 10.6 fL (9.0-12.2); MONOCYTES # (AUTO) 0.8 10^3/uL (0.0-1.0); MONOCYTES % (AUTO) 12 % (0-12); NEUTROPHILS # (AUTO) 3.2 10^3/uL (1.8-7.8); NEUTROPHILS % (AUTO) 49 % (42-75); PLATELET COUNT 259 10^3/uL (130-400); WHITE BLOOD COUNT 6.5 10^3/uL (4.3-11.0)
[2021-03-12 00:48] LABS: CHLORIDE 105 MMOL/L (98-107); POTASSIUM 4.2 MMOL/L (3.6-5.0); SODIUM 140 MMOL/L (135-145)
[2021-03-12 00:50] LABS: CALCIUM 8.8 MG/DL (8.5-10.1)
[2021-03-12 00:51] LABS: GLUCOSE 100 MG/DL (70-105); TOTAL PROTEIN 6.4 GM/DL (6.4-8.2)
[2021-03-12 00:52] LABS: CARBON DIOXIDE 23 MMOL/L (21-32)
[2021-03-12 00:55] LABS: ALKALINE PHOSPHATASE 91 U/L (40-136); CREATININE SERUM 0.82 MG/DL (0.60-1.30); GFR ESTIMATED 94
[2021-03-12 00:56] LABS: BUN/CREATININE RATIO 17
[2021-03-12 00:57] LABS: SALICYLATE < 5.0 MG/DL (5.0-20.0)
[2021-03-12 00:58] LABS: ALANINE AMINOTRANSFERASE 14 U/L (0-55)
[2021-03-12 01:03] LABS: ACETAMINOPHEN < 10 UG/ML (10-30)
[2021-03-12 01:10] LABS: BILIRUBIN,URINE NEGATIVE (NEGATIVE); CLARITY,URINE CLEAR; COLOR,URINE YELLOW; GLUCOSE, URINE (UA) NEGATIVE (NEGATIVE); KETONES,URINE TRACE (NEGATIVE); LEUKOCYTE ESTERASE ,URINE NEGATIVE (NEGATIVE); NITRITE,URINE NEGATIVE (NEGATIVE); PROTEIN,URINE NEGATIVE (NEGATIVE)
[2021-03-12 01:18] LABS: TSH (THYROID ANALYZER) 0.68 UIU/ML (0.35-4.94)
[2021-03-12 01:26] LABS: AMPHETAMINE SCREEN, URINE NEGATIVE (NEGATIVE); BACTERIA,URINE NEGATIVE /HPF; BARBITURATE SCREEN URINE NEGATIVE (NEGATIVE); BENZODIAZEPINES SCREEN URINE NEGATIVE (NEGATIVE); CANNABINOID SCREEN, URINE NEGATIVE (NEGATIVE); COCAINE SCREEN URINE NEGATIVE (NEGATIVE); METHADONE STAT NEGATIVE (NEGATIVE); METHAMPHETAMINE SCREEN URINE S NEGATIVE (NEGATIVE); OPIATE SCREEN URINE NEGATIVE (NEGATIVE); OXYCODONE STAT NEGATIVE (NEGATIVE); PROPOXYPHENE STAT NEGATIVE (NEGATIVE); TRICYCLIC ANTIDEPRESSANTS SCRE NEGATIVE (NEGATIVE)
[2021-03-12 01:27] LABS: URINE OTHER FEW SPERM /HPF
[2021-03-12 01:45] VITALS: BP 155/88
== END 2021-03-12 01:50 | disposition home or self-care (01) ==
LOC: EDUNIT# 19:32 → ER 19:35
DX: R45.851 Suicidal ideations (principal); F20.9 Schizophrenia, unspecified; F31.9 Bipolar disorder, unspecified; Z59.00 Homelessness unspecified; Z20.822 Contact with and (suspected) exposure to COVID-19; Z79.899 Other long term (current) drug therapy
CPT/HCPCS: 80053; 80306; 81000; 84443; 85025; 87636; 93005; 99283; G0480 ×3; 36415; 80320; 80329

== ENCOUNTER 2021-03-12 07:59 | Emergency (ER) | payer MEDICARE, MEDICAID ==
[~2021-03-12] VITALS: Ht 177.8 cm; Wt 63.6 kg
--- NOTE | 2021-03-12 09:00 | ED General ---
General Chief Complaint: General Problems/Pain Stated Complaint: DX W/ HYPOTHERMIA/HANDS SWELLING Nursing Triage Note: AMB TO ED WITH BACKPACK AND BAG IS HOMELESS STATES HE HAS A RASH AND NEEDS TO BE QUARANTINE TO HOSPITAL. NO RASH SEEN ON ARM. Source of Information: Patient Exam Limitations: No Limitations History of Present Illness Date Seen by Provider: Mar 12, 2021 Time Seen by Provider: 08:43 Initial Comments Here with report of concerns of rash to his right hand and thought he might need to be admitted for quarantine. Ultimately he is homeless and is sleeping in the cold. He does not have much winter year yet. He does know the resources in town. Also reports that he is hungry. Denies other complaint. Timing/Duration: 1-3 Hours Severity: Mild Allergies and Home Medications Allergies Coded Allergies: No Known Drug Allergies (Unverified , 01/04/19) Patient Home Medication List Home Medication List Reviewed: Yes [place] Carbonate ([place] Carbonate) 300 Mg Capsule, 300 MG PO BID, (Reported) Entered as Reported by: LINDA CHRIS on 09/08/20 1051 Olanzapine (Zyprexa) 5 Mg Tablet, 5 MG PO DAILY Prescribed by: YESY TREVIZO on 03/08/21 1242 Review of Systems Review of Systems Constitutional: see HPI; No chills, No fever Respiratory: no symptoms reported Cardiovascular: no symptoms reported Skin: change in color, rash Past Nkktlal-Osxfav-Kvpcdz Hx Patient Social History Tobacco Use?: No Alcohol Use?: No Pt feels they are or have been: Yes Immunizations Up To Date Tetanus Booster (TDap): Unknown First/Initial COVID19 Vaccinat: JAN Second COVID19 Vaccination Boubacar: JAN Seasonal Allergies Seasonal Allergies: Yes Past Medical History Surgeries: Yes (HERNIA REPAIR,) Abdominal, Transurethral Resection Respiratory: No Cardiac: No Neurological: No Genitourinary: Yes (S/P TURP) Benign Prostatic Hyperpl, Prostate Problems Gastrointestinal: Yes (LEFT INGUINAL HERNIA) Abdominal Hernia Musculoskeletal: No Endocrine: No HEENT: No Cancer: No Psychosocial: Yes ("BIPOLAR TYPE 2-SCHIZOID NO DILUSIONS";SUICIDAL IDEATIONS;POLYSUBSTANCE ABU) Sleep Difficulties, Anxiety, Suicide Attempts, Bipolar, Schizophrenia, Depression Integumentary: No Blood Disorders: No Family Medical History Reviewed Nursing Family Hx No Pertinent Family Hx SOCIAL HISTORY: -ETOH--2-3 MIXED DRINKS A DAY. NONE FOR 2-3 MONTHS, PER PT ON 09/23/20 -DRUGS--METHAMPHETAMINES, BLACK TAR HEROIN, THC. DENIES IV USE. CLAIMS NO USE FOR 2 WEEKS, PER PT ON 09/23/20 -SMOKED 1 PPD, STATES HE QUIT 2-3 MONTHS AGO, PER PT ON 09/23/20 ADDITIONAL HISTORY: -MULTIPLE PSYCH ADMITS, INCLUDING [place] [facility]SO [facility], [facility], [facility], [facility], OTHERS. LONG HISTORY OF HOMELESSNESS, LIVING IN LOCAL HOTELS AT INTERVALS LONG HISTORY OF VERY MANIPULATIVE BEHAVIOR Physical Exam Vital Signs Vital Signs - First Documented 03/12/21 08:35 Temp 35.9 Pulse 100 Resp 18 B/P (MAP) 129/93 (105) Pulse Ox 98 O2 Delivery Room Air Capillary Refill : Less Than 3 Seconds Height, Weight, BMI Height: 5'10.00" Weight: 150lbs. oz. 68.024515xi; 20.00 BMI Method:Stated General Appearance: No Apparent Distress, WD/WN HEENT: PERRL/EOMI, Pharynx Normal Respiratory: Lungs Clear, Normal Breath Sounds Cardiovascular: Regular Rate, Rhythm, No Murmur Extremity: Normal Range of Motion, Non Tender Neurologic/Psychiatric: Alert, Oriented x3 Skin: Normal Color, Warm/Dry; No Rash Progress/Results/Core Measures Suspected Sepsis SIRS Temperature: Pulse: 100 Respiratory Rate: 18 Blood Pressure 129 /93 Mean: 105 Results/Orders Vital Signs/I&O 03/12/21 08:35 Temp 35.9 Pulse 100 Resp 18 B/P (MAP) 129/93 (105) Pulse Ox 98 O2 Delivery Room Air Capillary Refill : Less Than 3 Seconds Blood Pressure Mean: 105 Progress Note : Progress Note Seen and evaluated. No obvious rash or significant injury noted. I do have concerns about cold weather capability. We did give him some new socks as well as a blanket and gave him some crackers and peanut butter. I did discuss with him about resources in the community including [employer], [email or web address] and [place]. He will follow-up with them and see if he can get some more supplies. Discharged home with return precautions. Patient verbalized understanding of instructions and agreement with plan. Departure Impression Primary Impression: Cold exposure Qualified Codes: T69.9XXA - Effect of reduced temperature, unspecified, initial encounter Disposition: 01 HOME, SELF-CARE Condition: Stable Departure-Patient Inst. Decision time for Depature: 08:59 [facility]errals: [facility] (PCP/Family) Primary Care Physician Patient Instructions: Hypothermia Add. Discharge Instructions: All discharge instructions reviewed with patient and/or family. Voiced understanding. You need to follow-up with the local resources as discussed for winter weather clothing. You should seek services for housing. Return for other concerns as needed. SCAR THORPE MD Mar 12, 2021 09:00
[2021-03-12 09:05] VITALS: BP 129/93
== END 2021-03-12 09:05 | disposition home or self-care (01) ==
LOC: EDUNIT# 07:59 → ER 08:00
DX: T69.9XXA Effect of reduced temperature, unspecified, initial encounter (principal); F20.9 Schizophrenia, unspecified; F31.9 Bipolar disorder, unspecified; Z79.899 Other long term (current) drug therapy
CPT/HCPCS: 99281

== ENCOUNTER 2021-03-12 18:42 | Emergency (ER) | payer MEDICARE, MEDICAID ==
[~2021-03-12] VITALS: Ht 177.8 cm; Wt 64.8 kg
--- NOTE | 2021-03-12 19:04 | ED General ---
General Stated Complaint: RASH/ALLERGIES Source of Information: Patient Exam Limitations: No Limitations History of Present Illness Date Seen by Provider: Mar 12, 2021 Time Seen by Provider: 19:03 Initial Comments To ER with a variety of complaints including but not limited to swelling to the joints in his hand, pain with movement and nasal congestion. Timing/Duration: 1-2 Days Severity: Moderate Associated Systoms: Denies Symptoms Allergies and Home Medications Allergies Coded Allergies: No Known Drug Allergies (Unverified , 01/04/19) Patient Home Medication List Home Medication List Reviewed: Yes [place] Carbonate ([place] Carbonate) 300 Mg Capsule, 300 MG PO BID, (Reported) Entered as Reported by: LINDA CHRIS on 09/08/20 1051 Olanzapine (Zyprexa) 5 Mg Tablet, 5 MG PO DAILY Prescribed by: YESY TREVIZO on 03/08/21 1242 Review of Systems Review of Systems Constitutional: see HPI EENTM: see HPI Respiratory: no symptoms reported Cardiovascular: no symptoms reported Genitourinary: no symptoms reported Musculoskeletal: no symptoms reported Skin: no symptoms reported Psychiatric/Neurological: No Symptoms Reported Hematologic/Lymphatic: No Symptoms Reported Immunological/Allergic: no symptoms reported Past Uwcjcgc-Vnkdgq-Yadghu Hx Immunizations Up To Date Tetanus Booster (TDap): Unknown First/Initial COVID19 Vaccinat: JAN Second COVID19 Vaccination Boubacar: JAN Seasonal Allergies Seasonal Allergies: Yes Past Medical History Surgeries: Yes (HERNIA REPAIR,) Abdominal, Transurethral Resection Respiratory: No Cardiac: No Neurological: No Genitourinary: Yes (S/P TURP) Benign Prostatic Hyperpl, Prostate Problems Gastrointestinal: Yes (LEFT INGUINAL HERNIA) Abdominal Hernia Musculoskeletal: No Endocrine: No HEENT: No Cancer: No Psychosocial: Yes ("BIPOLAR TYPE 2-SCHIZOID NO DILUSIONS";SUICIDAL IDEATIONS ;POLYSUBSTANCE ABU) Sleep Difficulties, Anxiety, Suicide Attempts, Bipolar, Schizophrenia, Depression Integumentary: No Blood Disorders: No Family Medical History No Pertinent Family Hx SOCIAL HISTORY: -ETOH--2-3 MIXED DRINKS A DAY. NONE FOR 2-3 MONTHS, PER PT ON 09/23/20 -DRUGS--METHAMPHETAMINES, BLACK TAR HEROIN, THC. DENIES IV USE. CLAIMS NO USE FOR 2 WEEKS, PER PT ON 09/23/20 -SMOKED 1 PPD, STATES HE QUIT 2-3 MONTHS AGO, PER PT ON 09/23/20 ADDITIONAL HISTORY: -MULTIPLE PSYCH ADMITS, INCLUDING [place] [facility]SO [facility], [facility], [facility], [facility], OTHERS. LONG HISTORY OF HOMELESSNESS, LIVING IN LOCAL HOTELS AT INTERVALS LONG HISTORY OF VERY MANIPULATIVE BEHAVIOR Physical Exam Vital Signs Capillary Refill : Height, Weight, BMI Height: 5'10.00" Weight: 150lbs. oz. 68.007701ke; 20.00 BMI Method:Stated General Appearance: No Apparent Distress, WD/WN Eyes: Bilateral Eye Normal Inspection, Bilateral Eye PERRL, Bilateral Eye EOMI Neck: Full Range of Motion, Normal Inspection Respiratory: No Accessory Muscle Use, No Respiratory Distress Gastrointestinal: Normal Bowel Sounds, Non Tender, Soft Extremity: Normal Capillary Refill, Normal Inspection Neurologic/Psychiatric: Alert, Oriented x3 Skin: Normal Color, Warm/Dry Progress/Results/Core Measures Suspected Sepsis SIRS Temperature: Pulse: Respiratory Rate: Blood Pressure / Mean: Results/Orders Vital Signs/I&O Capillary Refill : Departure Impression Primary Impression: Osteoarthritis of right hand Additional Impression: Nasal congestion Disposition: 01 HOME, SELF-CARE Condition: Stable Departure-Patient Inst. Decision time for Depature: 19:04 Referrals: [facility] (PCP/Family) Primary Care Physician Patient Instructions: NO INSTRUCTIONS GIVEN YESY TREVIZO APRN Mar 12, 2021 19:04
[2021-03-12] MEDS ORDERED: PSEUDOEPHEDRINE HCL 30 MG (SUDAFED) TAB PO ONE (19:15)
[2021-03-12 19:35] VITALS: BP 132/88
== END 2021-03-12 19:32 | disposition home or self-care (01) ==
LOC: EDUNIT# 18:42 → ER 18:43
DX: M19.041 Primary osteoarthritis, right hand (principal); R09.81 Nasal congestion; F20.9 Schizophrenia, unspecified; F31.9 Bipolar disorder, unspecified; Z79.899 Other long term (current) drug therapy
CPT/HCPCS: 99284

== ENCOUNTER 2021-04-09 12:33 | Emergency (ER) | payer MEDICARE, MEDICAID ==
[~2021-04-09] VITALS: Ht 177 cm; Wt 74.8 kg
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
[2021-04-09 12:54] LABS: BASOPHILS % (AUTO) 1 % (0-10); EOSINOPHILS # (AUTO) 0.1 10^3/uL (0.0-0.3); EOSINOPHILS % (AUTO) 3 % (0-10); HEMATOCRIT 43 % (40-54); HEMOGLOBIN 14.8 g/dL (13.3-17.7); LYMPHOCYTES # (AUTO) 1.5 10^3/uL (1.0-4.0); LYMPHOCYTES % (AUTO) 30 % (12-44); MEAN CORPUSCULAR HEMOGLOBIN 31 pg (25-34); MEAN CORPUSCULAR HGB CONC 35 g/dL (32-36); MEAN CORPUSCULAR VOLUME 89 fL (80-99); MEAN PLATELET VOLUME 11.2 fL (9.0-12.2); MONOCYTES # (AUTO) 0.5 10^3/uL (0.0-1.0); MONOCYTES % (AUTO) 11 % (0-12); NEUTROPHILS # (AUTO) 2.8 10^3/uL (1.8-7.8); NEUTROPHILS % (AUTO) 55 % (42-75); PLATELET COUNT 236 10^3/uL (130-400)
[2021-04-09 13:07] LABS: ALBUMIN 3.8 GM/DL (3.2-4.5); CHLORIDE 105 MMOL/L (98-107); SODIUM 141 MMOL/L (135-145)
[2021-04-09 13:08] LABS: CALCIUM 9.1 MG/DL (8.5-10.1)
[2021-04-09 13:10] LABS: GLUCOSE 182 MG/DL (70-105); TOTAL PROTEIN 6.5 GM/DL (6.4-8.2)
[2021-04-09 13:11] LABS: BILIRUBIN,TOTAL 0.8 MG/DL (0.1-1.0); CARBON DIOXIDE 19 MMOL/L (21-32)
[2021-04-09 13:13] LABS: ALKALINE PHOSPHATASE 81 U/L (40-136); CREATININE SERUM 1.02 MG/DL (0.60-1.30); GFR ESTIMATED 73
[2021-04-09 13:15] LABS: BUN/CREATININE RATIO 24
[2021-04-09 13:16] LABS: ALANINE AMINOTRANSFERASE 13 U/L (0-55); SALICYLATE < 5.0 MG/DL (5.0-20.0)
[2021-04-09 13:31] LABS: ACETAMINOPHEN < 10 UG/ML (10-30)
[2021-04-09 15:39] VITALS: BP 140/89
== END 2021-04-09 15:40 | disposition home or self-care (01) ==
LOC: EDUNIT# 12:33 → ER 12:40
DX: F91.9 Conduct disorder, unspecified (principal); F31.9 Bipolar disorder, unspecified; F20.9 Schizophrenia, unspecified; Z72.0 Tobacco use; Z20.822 Contact with and (suspected) exposure to COVID-19
CPT/HCPCS: 80053; 85025; 87636; 93005; 99283; G0480 ×3; 36415; 80320; 80329

== ENCOUNTER 2021-04-17 15:17 | Inpatient (IN) | payer MEDICARE, MEDICAID ==
[~2021-04-17] VITALS: Ht 170.2 cm; Wt 52.3 kg
--- OUTSIDE RECORDS SUMMARY | 2021-04-17 15:22 | XMS REPORT | Clinical Summary ---
Author Author [facility] Address Unknown Phone Unavailable Care Team Providers Care Appian Bpm Developer Name Role Phone Unassigned, None PCP Unavailable [...] XL) Take 1 tablet 30 tablet 0 03/10/201 300 MG 24 hr (300 mg 9 [...] Date Resolved Date Suicide ideation 03/01/2019 03/09/2019 Immunizations Name Administration Dates Next Due INFLUENZA [...] 81 03/09/2019 5:41 AM CDT Pulse 36.8 °C (98.3 °F) 03/09/2019 5:40 AM CDT Temperature 16 03/09/2019 [...] Vaccine (1 of 2) 08/28/2003 Pneumo-Vaccine: 65+Yrs (2 03/09/2020 03/09/2019 of 2 - PPSV23) COVID-19 Vaccine (2 - 09/28/2020 08/03/2020, Booster for Ashutosh 07/06/2020 series) Influenza Vaccine (#1) 2021 03/02/2019 Pneumo-Vaccine: Peds (0-5 Aged Out 03/09/2019 No l onger eligible based on patient's age to Yrs) & At-Risk Patients complete this topic (6-64 Yrs) HIB Vaccines Aged Out No longer eligible [...] / Dates Group Medicare MEDICARE SOLUTIONS BY [facility] MEDICARE [id number] 2018-P [address] [facility] [address] [address] [place] [address] Advance Directives For more information, please contact: [phone] Patient Physical Therapy Attendant Explanation Type Date Recorded Advance Directives and Living Will Power of Painting And Coating Worker Date Inactivated Comments Code Status Date Activated Full Code 03/09/2019 10:09 AM 03/09/2019 10:09 AM Full Code 03/01/2019 3:14 PM Care Teams Start Date End Date Appian Bpm Developer Relationship Specialty 03/01/19 Unassigned, None PCP - General [place]
[2021-04-17] MEDS ORDERED: DEXTROSE 50% 50 ML (IMS) SYR ONE (15:25)
[2021-04-17] MEDS ORDERED: DEXTROSE 50% 50 ML (IMS) SYR IV ONE (15:45)
[2021-04-17] MEDS ORDERED: NS IV 1000 ML 1,000 ML IV SCH (15:45)
[2021-04-17 15:50] LABS: BASOPHILS % (AUTO) 0 % (0-10); EOSINOPHILS % (AUTO) 0 % (0-10); HEMATOCRIT 39 % (40-54); HEMOGLOBIN 13.5 g/dL (13.3-17.7); LYMPHOCYTES % (AUTO) 11 % (12-44); MEAN CORPUSCULAR HEMOGLOBIN 31 pg (25-34); MEAN CORPUSCULAR HGB CONC 35 g/dL (32-36); MEAN CORPUSCULAR VOLUME 89 fL (80-99); MEAN PLATELET VOLUME 10.8 fL (9.0-12.2); MONOCYTES # (AUTO) 0.5 10^3/uL (0.0-1.0); MONOCYTES % (AUTO) 6 % (0-12); NEUTROPHILS # (AUTO) 7.3 10^3/uL (1.8-7.8); NEUTROPHILS % (AUTO) 82 % (42-75); PLATELET COUNT 204 10^3/uL (130-400); WHITE BLOOD COUNT 8.9 10^3/uL (4.3-11.0)
[2021-04-17 15:50] LABS: BILIRUBIN,URINE NEGATIVE (NEGATIVE); CLARITY,URINE SL CLOUDY; COLOR,URINE YELLOW; GLUCOSE, URINE (UA) 1+ (NEGATIVE); KETONES,URINE TRACE (NEGATIVE); LEUKOCYTE ESTERASE ,URINE NEGATIVE (NEGATIVE); NITRITE,URINE NEGATIVE (NEGATIVE); PROTEIN,URINE 1+ (NEGATIVE)
[2021-04-17 15:51] LABS: CHLORIDE 101 MMOL/L (98-107)
[2021-04-17 15:52] LABS: ALBUMIN 3.7 GM/DL (3.2-4.5); POTASSIUM 3.6 MMOL/L (3.6-5.0); SODIUM 138 MMOL/L (135-145)
[2021-04-17 15:53] LABS: CALCIUM 8.8 MG/DL (8.5-10.1)
[2021-04-17 15:54] LABS: GLUCOSE 87 MG/DL (70-105)
[2021-04-17 15:55] LABS: CARBON DIOXIDE 23 MMOL/L (21-32); TOTAL PROTEIN 6.3 GM/DL (6.4-8.2)
[2021-04-17 15:56] LABS: BILIRUBIN,TOTAL 0.8 MG/DL (0.1-1.0)
[2021-04-17 15:58] LABS: ALKALINE PHOSPHATASE 85 U/L (40-136); CREATININE SERUM 2.05 MG/DL (0.60-1.30); GFR ESTIMATED 33
[2021-04-17 15:59] LABS: BUN/CREATININE RATIO 36
[2021-04-17 16:01] LABS: ALANINE AMINOTRANSFERASE 36 U/L (0-55); MAGNESIUM 2.4 MG/DL (1.6-2.4); SALICYLATE < 5.0 MG/DL (5.0-20.0)
[2021-04-17 16:04] LABS: AMORPHOUS SEDIMENT,UR MOD AMOR URATES /LPF; BACTERIA,URINE NEGATIVE /HPF; GRANULAR CASTS,URINE 0-2 /LPF; HYALINE CASTS, URINE 0-2 /LPF; WBC,URINE 0-2 /HPF
[2021-04-17 16:05] LABS: AMPHETAMINE SCREEN, URINE NEGATIVE (NEGATIVE); BARBITURATE SCREEN URINE NEGATIVE (NEGATIVE); BENZODIAZEPINES SCREEN URINE NEGATIVE (NEGATIVE); CANNABINOID SCREEN, URINE NEGATIVE (NEGATIVE); COCAINE SCREEN URINE NEGATIVE (NEGATIVE); METHADONE STAT NEGATIVE (NEGATIVE); METHAMPHETAMINE SCREEN URINE S NEGATIVE (NEGATIVE); OPIATE SCREEN URINE NEGATIVE (NEGATIVE); OXYCODONE STAT NEGATIVE (NEGATIVE); PROPOXYPHENE STAT NEGATIVE (NEGATIVE); TRICYCLIC ANTIDEPRESSANTS SCRE NEGATIVE (NEGATIVE)
[2021-04-17 16:06] LABS: ACETAMINOPHEN < 10 UG/ML (10-30)
[2021-04-17] MEDS ORDERED: NALOXONE 0.4 MG/ML 1 ML (NARCAN) VIAL ONE (16:09)
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
--- NOTE | 2021-04-17 19:18 | ED Neurological Problem ---
General Chief Complaint: Altered Mental Status Stated Complaint: UNRESPONSIVE Nursing Triage Note: Pt to ER by [facility] with complaint of altered mental status/unresponsive. Pt lives at a hotel in [facility] and had not been seen for two days. Management entered room and found pt in bathtub, cold to the touch, covered in urine and he would not respond. Source: EMS Exam Limitations: clinical condition History of Present Illness Date Seen by Provider: Apr 17, 2021 Time Seen by Provider: 15:18 Initial Comments This is 65-year-old male presents to the emergency room via EMS with "unresponsive" state. He lives at a local hotel where no but he had heard from him for a few days. Staff went to check on him and found him dressed lying in the bathtub. He felt cool to the touch and was not responding. Vital signs were stable for EMS. Patient does respond purposefully to touch and movement but he will not talk. Patient is known to have significant behavioral disturbances and be uncooperative at times. He appeared incontinent as the clothing and bathtub were urine soaked. Fingerstick blood sugar was in the 90s for EMS but 66 for ER staff. Allergies and Home Medications Allergies Coded Allergies: No Known Drug Allergies (Unverified , 01/04/19) Patient Home Medication List Home Medication List Reviewed: Yes Blowing Rock Carbonate (Blowing Rock Carbonate) 300 Mg Capsule, 300 MG PO BID, (Reported) Entered as Reported by: LINDA CHRIS on 09/08/20 1051 Olanzapine (Zyprexa) 5 Mg Tablet, 5 MG PO DAILY Prescribed by: YESY TREVIZO on 03/08/21 1242 Review of Systems Review of Systems Constitutional: no symptoms reported Eyes: No Symptoms Reported Ears, Nose, Mouth, Throat: no symptoms reported Respiratory: no symptoms reported Cardiovascular: no symptoms reported Gastrointestinal: no symptoms reported Genitourinary: no symptoms reported Musculoskeletal: no symptoms reported Skin: no symptoms reported Psychiatric/Neurological: See HPI Endocrine: No Symptoms Reported Hematologic/Lymphatic: No Symptoms Reported Past Yrqahkz-Objxgp-Zecish Hx Patient Social History Tobacco Use?: Yes Tobacco type used: Cigarettes Use of E-Cig and/or Vaping dev: Unable to obtain Substance use?: Unable to obtain Alcohol Use?: Yes Alcohol type: Hard Liquor Pt feels they are or have been: Unable to obtain Immunizations Up To Date Tetanus Booster (TDap): Unknown Influenza Vaccine Up-to-Date: No; Not Current First/Initial COVID19 Vaccinat: JAN Second COVID19 Vaccination [place]: JAN Third COVID19 Vaccination Date: JAN Seasonal Allergies Seasonal Allergies: Yes Past Medical History Surgery/Hospitalization HX: MENTAL HEALTH HISTORY Surgeries: Yes (HERNIA REPAIR,) Abdominal, Transurethral Resection Respiratory: No Cardiac: No Neurological: No Genitourinary: Yes (S/P TURP) Benign Prostatic Hyperpl, Prostate Problems Gastrointestinal: Yes (LEFT INGUINAL HERNIA) Abdominal Hernia Musculoskeletal: No Endocrine: No HEENT: No Cancer: No Psychosocial: Yes ("BIPOLAR TYPE 2-SCHIZOID NO DILUSIONS";SUICIDAL IDEATIONS;POLYSUBSTANCE ABU) Sleep Difficulties, Anxiety, Suicide Attempts, Bipolar, Schizophrenia, Depression Integumentary: No Blood Disorders: No Family Medical History No Pertinent Family Hx SOCIAL HISTORY: -ETOH--2-3 MIXED DRINKS A DAY. NONE FOR 2-3 MONTHS, PER PT ON 09/23/20 -DRUGS--METHAMPHETAMINES, BLACK TAR HEROIN, THC. DENIES IV USE. CLAIMS NO USE FOR 2 WEEKS, PER PT ON 09/23/20 -SMOKED 1 PPD, STATES HE QUIT 2-3 MONTHS AGO, PER PT ON 09/23/20 ADDITIONAL HISTORY: -MULTIPLE PSYCH ADMITS, INCLUDING [place] [facility], [facility], [facility], OTHERS. LONG HISTORY OF HOMELESSNESS, LIVING IN LOCAL HOTELS AT INTERVALS LONG HISTORY OF VERY MANIPULATIVE BEHAVIOR Physical Exam Vital Signs Vital Signs - First Documented 04/17/21 15:18 Temp 37.4 Pulse 67 Resp 16 Pulse Ox 100 O2 Delivery Nasal Cannula O2 Flow Rate 2.00 Capillary Refill : Less Than 3 Seconds Height, Weight, BMI Height: 5'10.00" Weight: 150lbs. oz. 68.102889lx; 20.00 BMI Method:Stated General Appearance: WD/WN, no apparent distress, other (Responding to some stimuli but will not talk. Does have purposeful movement and adjusting his body. Disheveled, clothing urine soaked) HEENT: PERRL/EOMI, normal ENT inspection Neck: non-tender, normal inspection Respiratory: lungs clear, normal breath sounds, no respiratory distress Cardiovascular: regular rate, rhythm, no edema, no murmur Gastrointestinal: normal bowel sounds, non tender, soft Back: normal inspection Extremities: normal inspection, no pedal edema Neurologic/Psychiatric: other (Patient will not talk and only has some response to physical and verbal stimuli.) Crainal Nerves: PERRL Skin: normal color, warm/dry Progress/Results/Core Measures Results/Orders Lab Results Laboratory Tests Test 04/17/21 15:23 04/17/21 15:27 04/17/21 15:36 Range/Units Glucometer 66 L 70-110 MG/DL White Blood Count 8.9 4.3-11.0 10^3/uL Red Blood Count 4.36 4.30-5.52 10^6/uL Hemoglobin 13.5 13.3-17.7 g/dL Hematocrit 39 L 40-54 % Mean Corpuscular Volume 89 80-99 fL Mean Corpuscular Hemoglobin 31 25-34 pg Mean Corpuscular Hemoglobin Concent 35 32-36 g/dL Red Cell Distribution Width 12.6 10.0-14.5 % Platelet Count 204 130-400 10^3/uL Mean Platelet Volume 10.8 9.0-12.2 fL Immature Granulocyte % (Auto) 0 % Neutrophils (%) (Auto) 82 H 42-75 % Lymphocytes (%) (Auto) 11 L 12-44 % Monocytes (%) (Auto) 6 0-12 % Eosinophils (%) (Auto) 0 0-10 % Basophils (%) (Auto) 0 0-10 % Neutrophils # (Auto) 7.3 1.8-7.8 10^3/uL Lymphocytes # (Auto) 1.0 1.0-4.0 10^3/uL Monocytes # (Auto) 0.5 0.0-1.0 10^3/uL Eosinophils # (Auto) 0.0 0.0-0.3 10^3/uL Basophils # (Auto) 0.0 0.0-0.1 10^3/uL Immature Granulocyte # (Auto) 0.0 0.0-0.1 10^3/uL Sodium Level 138 135-145 MMOL/L Potassium Level 3.6 3.6-5.0 MMOL/L Chloride Level 101 98-107 MMOL/L Carbon Dioxide Level 23 21-32 MMOL/L Anion Gap 14 5-14 MMOL/L Blood Urea Nitrogen 73 H 7-18 MG/DL Creatinine 2.05 H 0.60-1.30 MG/DL Estimat Glomerular Filtration Rate 33 BUN/Creatinine Ratio 36 Glucose Level 87 70-105 MG/DL Calcium Level 8.8 8.5-10.1 MG/DL Corrected Calcium 9.0 8.5-10.1 MG/DL Magnesium Level 2.4 1.6-2.4 MG/DL Total Bilirubin 0.8 0.1-1.0 MG/DL Aspartate Amino Transf (AST/SGOT) 89 H 5-34 U/L Alanine Aminotransferase (ALT/SGPT) 36 0-55 U/L Alkaline Phosphatase 85 40-136 U/L Total Creatine Kinase 2279 H 30-200 U/L Total Protein 6.3 L 6.4-8.2 GM/DL Albumin 3.7 3.2-4.5 GM/DL Salicylates Level < 5.0 L 5.0-20.0 MG/DL Urine Opiates Screen NEGATIVE NEGATIVE Urine Oxycodone Screen NEGATIVE NEGATIVE Urine Methadone Screen NEGATIVE NEGATIVE Urine Propoxyphene Screen NEGATIVE NEGATIVE Acetaminophen Level < 10 L 10-30 UG/ML Urine Barbiturates Screen NEGATIVE NEGATIVE Ur Tricyclic Antidepressants Screen NEGATIVE NEGATIVE Urine Phencyclidine Screen NEGATIVE NEGATIVE Urine Amphetamines Screen NEGATIVE NEGATIVE Urine Methamphetamines Screen NEGATIVE NEGATIVE Urine Benzodiazepines Screen NEGATIVE NEGATIVE Urine Cocaine Screen NEGATIVE NEGATIVE Urine Cannabinoids Screen NEGATIVE NEGATIVE Serum Alcohol < 10 <10 MG/DL Urine Color YELLOW Urine Clarity SL CLOUDY Urine pH 6.0 5-9 Urine Specific [place] 1.025 H 1.016-1.022 Urine Protein 1+ H NEGATIVE Urine Glucose (UA) 1+ H NEGATIVE Urine Ketones TRACE H NEGATIVE Urine Nitrite NEGATIVE NEGATIVE Urine Bilirubin NEGATIVE NEGATIVE Urine Urobilinogen 0.2 < = 1.0 MG/DL Urine Leukocyte Esterase NEGATIVE NEGATIVE Urine RBC (Auto) 3+ H NEGATIVE Urine RBC 5-10 H /HPF Urine WBC 0-2 /HPF Urine Crystals PRESENT H /LPF Urine Amorphous Sediment MOD HCETOR URATES H /LPF Urine Bacteria NEGATIVE /HPF Urine Casts PRESENT /LPF Urine Hyaline Casts 0-2 H /LPF Urine Granular Casts 0-2 H /LPF Urine Mucus NEGATIVE /LPF Urine Culture Indicated NO My Orders Orders - HE BUTTS MD D50w (Emergency) Syringe (Dextrose 50% 5 (04/17/21 15:25) Acetaminophen (04/17/21 15:37) Alcohol (04/17/21 15:37) Cbc With Automated Diff (04/17/21 15:37) Comprehensive Metabolic Panel (04/17/21 15:37) Drug Screen Stat (Urine) (04/17/21 15:37) Magnesium (04/17/21 15:37) Salicylate (04/17/21 15:37) Ua Culture If Indicated (04/17/21 15:37) Ed Iv/Invasive Line Start (04/17/21 15:37) Ns Iv 1000 Ml (Sodium Chloride 0.9%) (04/17/21 15:45) D50w (Emergency) Syringe (Dextrose 50% 5 (04/17/21 15:45) Ct Head/Cervical Spine Wo (04/17/21 15:42) Naloxone Injection (Narcan Injection) (04/17/21 16:09) Creatine Kinase (04/17/21 16:28) Blow[place] Level (04/17/21 18:36) Thyroid Stimulating Hormone (04/17/21 18:36) Free T4 (Free Thyroxine) (04/17/21 18:36) Ekg Tracing (04/17/21 18:36) Monitor-Rhythm Ecg Trace Only (04/17/21 18:36) Medications Given in ED Current Medications Medications Dose Ordered Sig/Christopher Route Start Time Stop Time Status Last Admin Dose Admin Dextrose 50 ml STK-MED ONCE .ROUTE 04/17/21 15:25 04/17/21 15:27 DC 04/17/21 15:32 50 ML Naloxone HCl 0.4 mg STK-MED ONCE .ROUTE 04/17/21 16:09 04/17/21 16:12 DC 04/17/21 16:24 0.4 MG Vital Signs/I&O 04/17/21 15:18 Temp 37.4 Pulse 67 Resp 16 B/P (MAP) Pulse Ox 100 O2 Delivery Nasal Cannula O2 Flow Rate 2.00 Progress Progress Note : Progress Note CT head and cervical spine were unremarkable. Patient was found to have acute kidney injury with mild rhabdomyolysis. [place] level was obtained as well as EKG. Patient was ultimately admitted for observation. A liter of IV normal saline was administered. Initial ECG Impression Date: Apr 17, 2021 Initial ECG Impression Time: 18:50 Initial ECG Rate: 63 Initial ECG Rhythm: Normal Sinus Comment Sinus rhythm with no ST elevation or depression. QT prolongation with QTC of 544. No axis deviation. Diagnostic Imaging Diagonstic Imaging: CT Plain Films/CT/US/NM/MRI: c-spine, head Comments CT head and C-spine report reviewed. See report below: NAME: PHYLLIS GARLAND [facility] REC#: [id number] PT STATUS: REG ER : 1955 PHYSICIAN: HE BUTTS MD ADMIT DATE: 04/17/21/ER Signed Date of Exam:04/17/21 CT HEAD/CERVICAL SPINE WO PROCEDURE: CT head and CT cervical spine without contrast. TECHNIQUE: Multiple contiguous axial images were obtained through the brain and cervical spine without the use of intravenous contrast. Sagittal and coronal reformations through the cervical spine were then performed. Auto Exposure Controls were utilized during the CT exam to meet ALARA standards for radiation dose reduction. INDICATION: Altered mental status, trauma, found unresponsive. COMPARISON: None. FINDINGS: CT HEAD: The ventricles and cortical sulci are mildly prominent, likely from generalized parenchymal volume loss. There is no CT evidence of acute territorial ischemia. No acute intracranial hemorrhage is seen. The calvarium is intact. The visualized paranasal sinuses are clear. CT CERVICAL SPINE: There is reversal of the cervical lordosis centered at C4. There is advanced degenerative change at C4-C5 and C5-C6 with additional degenerative changes elsewhere in the cervical spine. Vertebral body heights are preserved. No acute fracture is seen. No bony fragments or hyperdense fluid collections are seen in the spinal canal. Surrounding soft tissues demonstrate no acute abnormality. IMPRESSION: 1. No acute intracranial hemorrhage or calvarium fracture. No CT evidence of acute territorial ischemia. 2. Degenerative changes in the cervical spine with no acute fracture seen. Dictated by: Dictated on workstation # [id number] Dict: 04/17/21 1628 Trans: 04/17/21 1641 [id number] Interpreted by: GUTIERREZ HAINES MD Electronically signed by: GUTIERREZ HAINES MD 04/17/21 1641 Departure Communication (Admissions) Time/Spoke to Admitting Phy: 18:30 Dr. Galan Impression Primary Impression: Altered mental status Qualified Codes: R41.82 - Altered mental status, unspecified Additional Impressions: Acute kidney injury Rhabdomyolysis Qualified Codes: T79.6XXA - Traumatic ischemia of muscle, initial encounter Disposition: ADMITTED INPATIENT Condition: Stable Admissions Decision to Admit Reason: Admit from ER (General) Decision to Admit/Date: Apr 17, 2021 Time/Decision to Admit Time: 18:20 Departure-Patient Inst. Referrals: [facility] (PCP/Family) Primary Care Physician HE BUTTS MD Apr 17, 2021 19:17
[2021-04-17 22:08] LABS: FREE T4 (FREE THYROXINE) 1.17 NG/DL (0.70-1.48)
[2021-04-17] MEDS ORDERED: LACTATED RINGERS 1,000 ML IV ONE (22:32)
[2021-04-17 22:33] VITALS: BP 137/71
[2021-04-17] MEDS: DEXTROSE 50% 50 ML (IMS) SYR IV PRN (23:16)
[2021-04-17] MEDS: LACTATED RINGERS 1,000 ML IV SCH (23:30)
[2021-04-17 23:58] VITALS: BP 125/73
[2021-04-18] MEDS ORDERED: FAMOTIDINE 20MG/2ML IV (PEPCID) IV SCH (00:24)
[2021-04-18] MEDS ORDERED: ONDANSETRON 4 MG/2 ML (SDV) Z0FRAN IV PRN (00:30)
[2021-04-18 03:55] VITALS: BP 122/75
[2021-04-18] MEDS: LACTATED RINGERS 1,000 ML IV SCH ×3 (04:19→13:47)
[2021-04-18 06:57] LABS: BASOPHILS % (AUTO) 0 % (0-10); EOSINOPHILS # (AUTO) 0.1 10^3/uL (0.0-0.3); EOSINOPHILS % (AUTO) 1 % (0-10); HEMATOCRIT 34 % (40-54); HEMOGLOBIN 11.9 g/dL (13.3-17.7); LYMPHOCYTES # (AUTO) 1.1 10^3/uL (1.0-4.0); LYMPHOCYTES % (AUTO) 14 % (12-44); MEAN CORPUSCULAR HEMOGLOBIN 31 pg (25-34); MEAN CORPUSCULAR HGB CONC 35 g/dL (32-36); MEAN CORPUSCULAR VOLUME 88 fL (80-99); MEAN PLATELET VOLUME 11.1 fL (9.0-12.2); MONOCYTES # (AUTO) 0.6 10^3/uL (0.0-1.0); MONOCYTES % (AUTO) 8 % (0-12); NEUTROPHILS # (AUTO) 5.6 10^3/uL (1.8-7.8); NEUTROPHILS % (AUTO) 77 % (42-75); PLATELET COUNT 186 10^3/uL (130-400); WHITE BLOOD COUNT 7.3 10^3/uL (4.3-11.0)
[2021-04-18 07:10] LABS: POTASSIUM 3.3 MMOL/L (3.6-5.0)
[2021-04-18 07:11] LABS: CALCIUM 8.2 MG/DL (8.5-10.1)
[2021-04-18 07:16] LABS: CREATININE SERUM 1.19 MG/DL (0.60-1.30)
[2021-04-18 08:00] VITALS: BP 124/79
[2021-04-18] MEDS ORDERED: KCL 20 MEQ TAB (K-DUR) PO NR (10:54)
[2021-04-18] MEDS: POTASSIUM CL 10MEQ/50ML IVPB 50 ML IV SCH ×3 (11:28→13:47)
[2021-04-18 12:00] VITALS: BP 141/81
--- NOTE | 2021-04-18 12:33 | History & Physical ---
HPI History of Present Illness: 65 yo M that was found in his hotel room in the bathtub unresponsive after they had not seen him for several days. Patient opening eyes and responding looking at people talking to him then closing them and going back to sleep. Refusing to eat or drink. Recent admission to [facility] for EtOH abuse. Source: patient Exam Limitations: clinical condition Date seen by provider: Apr 18, 2021 Time Seen by Provider: 09:15 Attending Physician Satish Galan MD PCP [facility] Consult Date of Admission Apr 17, 2021 at 19:08 Home Medications Home Medications Reviewed patient Home Medication Reconciliation performed by pharmacy medication reconciliations emergency technician and/or nursing. Patients Allergies have been reviewed. Allergies Coded Allergies: No Known Drug Allergies (Unverified , 01/04/19) VOO-Uglciq-Rwvrgy Hx Patient Social History Living Status: Living in hotel independently Drug of Choice: METHAMPHETAMINE, HEROIN, THC--DENIES IV USE Smoking Status: Current Someday Smoker 2nd Hand Smoke Exposure: No Recent Hopitalizations: No Alcohol Use?: Yes Substance type: Methamphetamine Tobacco type used: Cigarettes Have you traveled recently?: No Immunizations Up To Date Tetanus Booster (TDap): Unknown Date of Influenza Vaccine: Feb 10, 2021 Past Medical History MDD Bipolar Hx Drug Use (Heroin/Methamphetamine) Anxiety Inguinal Hernia Prostatectomy/BPH Family Medical History Significant Family History: No Pertinent Family Hx Other Significan Family Hx: SOCIAL HISTORY: -ETOH--2-3 MIXED DRINKS A DAY. NONE FOR 2-3 MONTHS, PER PT ON 09/23/20 -DRUGS--METHAMPHETAMINES, BLACK TAR HEROIN, THC. DENIES IV USE. CLAIMS NO USE FOR 2 WEEKS, PER PT ON 09/23/20 -SMOKED 1 PPD, STATES HE QUIT 2-3 MONTHS AGO, PER PT ON 09/23/20 ADDITIONAL HISTORY: -MULTIPLE PSYCH ADMITS, INCLUDING [place] [facility] [facility], [facility], [facility], [facility], OTHERS. LONG HISTORY OF HOMELESSNESS, LIVING IN LOCAL HOTELS AT INTERVALS LONG HISTORY OF VERY MANIPULATIVE BEHAVIOR Review of Systems (CHC) Constitutional: other (Will not answer questions) Reviewed Test Results Reviewed Test Results Lab Laboratory Tests Test 04/17/21 22:56 04/17/21 23:45 04/18/21 05:04/18/21 06:30 Range/Units Glucometer 62 L 147 H 76 70-110 MG/DL White Blood Count 7.3 4.3-11.0 10^3/uL Red Blood Count 3.84 L 4.30-5.52 10^6/uL Hemoglobin 11.9 L 13.3-17.7 g/dL Hematocrit 34 L 40-54 % Mean Corpuscular Volume 88 80-99 fL Mean Corpuscular Hemoglobin 31 25-34 pg Mean Corpuscular Hemoglobin Concent 35 32-36 g/dL Red Cell Distribution Width 12.6 10.0-14.5 % Platelet Count 186 130-400 10^3/uL Mean Platelet Volume 11.1 9.0-12.2 fL Immature Granulocyte % (Auto) 0 % Neutrophils (%) (Auto) 77 H 42-75 % Lymphocytes (%) (Auto) 14 12-44 % Monocytes (%) (Auto) 8 0-12 % Eosinophils (%) (Auto) 1 0-10 % Basophils (%) (Auto) 0 0-10 % Neutrophils # (Auto) 5.6 1.8-7.8 10^3/uL Lymphocytes # (Auto) 1.1 1.0-4.0 10^3/uL Monocytes # (Auto) 0.6 0.0-1.0 10^3/uL Eosinophils # (Auto) 0.1 0.0-0.3 10^3/uL Basophils # (Auto) 0.0 0.0-0.1 10^3/uL Immature Granulocyte # (Auto) 0.0 0.0-0.1 10^3/uL Sodium Level 138 135-145 MMOL/L Potassium Level 3.3 L 3.6-5.0 MMOL/L Chloride Level 104 98-107 MMOL/L Carbon Dioxide Level 19 L 21-32 MMOL/L Anion Gap 15 H 5-14 MMOL/L Blood Urea Nitrogen 48 H 7-18 MG/DL Creatinine 1.19 0.60-1.30 MG/DL Estimat Glomerular Filtration Rate 61 BUN/Creatinine Ratio 40 Glucose Level 78 70-105 MG/DL Calcium Level 8.2 L 8.5-10.1 MG/DL Total Creatine Kinase 1356 H 30-200 U/L Test 04/18/21 07:14 04/18/21 09:56 04/18/21 17:05 04/18/21 20:23 Range/Units Glucometer 70 73 71 63 L 70-110 MG/DL Test 04/18/21 22:28 04/19/21 05:39 04/19/21 12:08 04/19/21 15:30 Range/Units Glucometer 128 H 75 69 L 70 70-110 MG/DL Test 04/19/21 20:45 Range/Units Glucometer 67 L 70-110 MG/DL Physical Exam-(CHC) Physical Exam Vital Signs VS - Last 72 Hours, by Label 04/17/21 04/17/21 04/17/21 04/17/21 15:18 22:33 22:39 23:58 Temp 37.4 36.2 Pulse 67 74 77 75 Resp 16 18 18 B/P (MAP) 137/71 (93) 125/73 (90) Pulse Ox 100 100 100 O2 Delivery Nasal Cannula Room Air Room Air O2 Flow Rate 2.00 04/18/21 04/18/21 04/18/21 04/18/21 01:00 03:27 03:55 07:00 Temp 36.0 Pulse 98 71 68 Resp 18 B/P (MAP) 122/75 (91) Pulse Ox 100 99 O2 Delivery Room Air Room Air 04/18/21 04/18/21 04/18/21 04/18/21 08:00 08:37 12:00 12:27 Temp 36.3 35.7 Pulse 76 64 55 Resp 14 16 B/P (MAP) 124/79 (94) 141/81 (101) Pulse Ox 99 94 O2 Delivery Room Air Room Air Room Air 04/18/21 04/18/21 04/18/21 04/18/21 13:00 16:59 18:18 19:27 Temp 36.4 36.2 Pulse 71 82 Resp 16 16 B/P (MAP) 132/62 (85) 116/59 (78) Pulse Ox 98 98 O2 Delivery Room Air Room Air Room Air Room Air 04/18/21 04/18/21 04/19/21 04/19/21 20:45 23:26 04:38 08:00 Temp 36.3 36.4 Pulse 72 78 Resp 18 18 B/P (MAP) 123/63 (83) 117/64 (81) Pulse Ox 98 96 98 98 O2 Delivery Room Air Room Air Room Air Room Air 04/19/21 04/19/21 04/19/21 04/19/21 08:00 12:00 15:27 19:40 Temp 36.8 35.9 36.7 36.7 Pulse 69 67 69 72 Resp 16 16 19 19 B/P (MAP) 156/72 (100) 154/72 (99) 139/64 (89) 141/66 (91) Pulse Ox 98 100 100 100 O2 Delivery Room Air Room Air Room Air Room Air Capillary Refill : Less Than 3 Seconds General Appearance: WD/WN, no apparent distress, other (Non verbal) HEENT: PERRL/EOMI Neck: non-tender, full range of motion Respiratory: chest non-tender, lungs clear, normal breath sounds, no respiratory distress, no accessory muscle use Cardiovascular: normal peripheral pulses, regular rate, rhythm, no edema, no murmur Gastrointestinal: normal bowel sounds, soft, no organomegaly Extremities: normal range of motion, non-tender, normal inspection, no pedal edema, no calf tenderness, normal capillary refill Neurologic/Psychiatric: other (opens eyes to name then closes them and goes back to sleep) Skin: normal color, warm/dry Lymphatic: no adenopathy Assessment/Plan Assessment/Plan Admission Status: Observation (1) Altered mental status Status: Acute Assessment & Plan: - Normal UDS, hypoglycemia, encephalopathy, Will get MRI Qualifiers: Qualified Codes: R41.82 - Altered mental status, unspecified (2) Rhabdomyolysis Status: Acute Assessment & Plan: - IVFs, will trend Qualifiers: Qualified Codes: T79.6XXA - Traumatic ischemia of muscle, initial encounter (3) Acute kidney injury Status: Acute SATISH GALAN MD Apr 18, 2021 12:33
[2021-04-18 16:59] VITALS: BP 132/62
[2021-04-18 19:27] VITALS: BP 116/59
[2021-04-18] MEDS: DEXTROSE 50% 50 ML (IMS) SYR IV PRN (21:30)
[2021-04-18 23:26] VITALS: BP 123/63
[2021-04-19 04:38] VITALS: BP 117/64
[2021-04-19 08:00] VITALS: BP 156/72
[2021-04-19 12:00] VITALS: BP 154/72
[2021-04-19 15:27] VITALS: BP 139/64
[2021-04-19 19:40] VITALS: BP 141/66
--- NOTE | 2021-04-19 21:16 | Progress Note ---
Subjective Subjective/Events-last exam Patient still not responding. Patient had multiple episodes of hypoglycemia ON Review of Systems Non verbal Objective Exam Last Set of Vital Signs Vital Signs Date Time Temp Pulse Resp B/P (MAP) Pulse Ox O2 Delivery O2 Flow Rate FiO2 04/19/21 19:40 36.7 72 19 141/66 (91) 100 Room Air 04/17/21 15:18 2.00 Capillary Refill : Less Than 3 Seconds I&O Intake and Output 04/19/21 00:00 Intake Total 2700 ml Output Total 2200 ml Balance 500 ml Intake Oral 0 ml IV Total 2700 ml Output Urine Total 2200 ml # Voids 1 General: Other (Awake, opens eyes to name) Lungs: Clear to Auscultation, Normal Air Movement Heart: Regular Rate, No Murmurs Abdomen: Normal Bowel Sounds, Soft, No Tenderness Results/Procedures Lab Laboratory Tests 04/18/21 22:28: Glucometer 128H 04/19/21 05:39: Glucometer 75 04/19/21 12:08: Glucometer 69L 04/19/21 15:30: Glucometer 70 04/19/21 20:45: Glucometer 67L Assessment/Plan Assessment/Plan (1) Altered mental status Status: Acute Assessment & Plan: - Normal UDS, hypoglycemia, encephalopathy, Will get MRI 04/19: IV pulled out ON, replaced due to hypoglycemia, MRI pending, B12/Folate levels pending given h/o EtOH Qualifiers: Qualified Codes: R41.82 - Altered mental status, unspecified (2) Rhabdomyolysis Status: Acute Assessment & Plan: - IVFs, will trend Qualifiers: Qualified Codes: T79.6XXA - Traumatic ischemia of muscle, initial encounter (3) Acute kidney injury Status: Acute Assessment & Plan: 04/19: improving, BUN elevated, continue IVFs SATISH PINTO MD Apr 19, 2021 21:16
[2021-04-19] MEDS: POTASSIUM CL 10MEQ/50ML IVPB 50 ML IV SCH ×2 (22:20→23:14)
[2021-04-20] VITALS: BP 143/68
[2021-04-20 04:15] VITALS: BP 132/77
[2021-04-20 07:35] LABS: BASOPHILS % (AUTO) 1 % (0-10); EOSINOPHILS # (AUTO) 0.1 10^3/uL (0.0-0.3); EOSINOPHILS % (AUTO) 1 % (0-10); HEMATOCRIT 40 % (40-54); HEMOGLOBIN 13.9 g/dL (13.3-17.7); LYMPHOCYTES # (AUTO) 1.6 10^3/uL (1.0-4.0); LYMPHOCYTES % (AUTO) 23 % (12-44); MEAN CORPUSCULAR HEMOGLOBIN 31 pg (25-34); MEAN CORPUSCULAR HGB CONC 35 g/dL (32-36); MEAN CORPUSCULAR VOLUME 88 fL (80-99); MEAN PLATELET VOLUME 11.5 fL (9.0-12.2); MONOCYTES # (AUTO) 0.6 10^3/uL (0.0-1.0); MONOCYTES % (AUTO) 9 % (0-12); NEUTROPHILS # (AUTO) 4.6 10^3/uL (1.8-7.8); NEUTROPHILS % (AUTO) 67 % (42-75); PLATELET COUNT 206 10^3/uL (130-400); WHITE BLOOD COUNT 6.9 10^3/uL (4.3-11.0)
[2021-04-20 07:50] LABS: ALBUMIN 3.4 GM/DL (3.2-4.5); BILIRUBIN,TOTAL 0.9 MG/DL (0.1-1.0); CALCIUM 8.9 MG/DL (8.5-10.1); CREATININE SERUM 0.98 MG/DL (0.60-1.30); POTASSIUM 3.8 MMOL/L (3.6-5.0); TOTAL PROTEIN 6.1 GM/DL (6.4-8.2)
[2021-04-20 07:56] VITALS: BP 140/74
[2021-04-20] MEDS: D5 LR IV SOLUTION 1,000 ML IV SCH ×2 (09:56→23:01)
[2021-04-20 11:15] VITALS: BP 130/64
[2021-04-20 16:00] VITALS: BP 151/79
--- NOTE | 2021-04-20 18:19 | Progress Note ---
Subjective Subjective/Events-last exam Patient continues to refuse to eat or drink anything. Multiple attempts have been made to contact his sister and we have been unable to reach. Review of Systems refusing to respond Objective Exam Last Set of Vital Signs Vital Signs Date Time Temp Pulse Resp B/P (MAP) Pulse Ox O2 Delivery O2 Flow Rate FiO2 04/20/21 16:00 37.0 87 18 151/79 (103) 99 Room Air 04/17/21 15:18 2.00 Capillary Refill : Less Than 3 Seconds I&O Intake and Output 04/20/21 00:00 Intake Total 600 ml Output Total 600 ml Balance 0 ml Intake Oral 0 ml IV Total 600 ml Output Urine Total 600 ml General: Other (Awake) Lungs: Clear to Auscultation, Normal Air Movement Heart: Regular Rate, No Murmurs Abdomen: Normal Bowel Sounds, Soft Extremities: No Edema, No Tenderness/Swelling Neuro: Other (opens eyes to name but then closes them and goes back to sleep) Results/Procedures Lab Laboratory Tests 04/19/21 20:45: Glucometer 67L 04/20/21 05:28: Glucometer 63L 04/20/21 06:26: White Blood Count 6.9, Red Blood Count 4.55, Hemoglobin 13.9, Hematocrit 40, Mean Corpuscular Volume 88, Mean Corpuscular Hemoglobin 31, Mean Corpuscular Hemoglobin Concent 35, Red Cell Distribution Width 12.4, Platelet Count 206, Mean Platelet Volume 11.5, Immature Granulocyte % (Auto) 0, Neutrophils (%) (Auto) 67, Lymphocytes (%) (Auto) 23, Monocytes (%) (Auto) 9, Eosinophils (%) (Auto) 1, Basophils (%) (Auto) 1, Neutrophils # (Auto) 4.6, Lymphocytes # (Auto) 1.6, Monocytes # (Auto) 0.6, Eosinophils # (Auto) 0.1, Basophils # (Auto) 0.0, Immature Granulocyte # (Auto) 0.0, Sodium Level 142, Potassium Level 3.8, Chloride Level 106, Carbon Dioxide Level 16L, Anion Gap 20H, Blood Urea Nitrogen 23H, Creatinine 0.98, Estimat Glomerular Filtration Rate 76, BUN/Creatinine Ratio 23, Glucose Level 62L, Calcium Level 8.9, Corrected Calcium 9.4, Total Bilirubin 0.9, Aspartate Amino Transf (AST/SGOT) 39H, Alanine Aminotransferase (ALT/SGPT) 32, Alkaline Phosphatase 76, Total Creatine Kinase 311H, Total Protein 6.1L, Albumin 3.4 04/20/21 10:29: Glucometer 68L 04/20/21 17:25: Glucometer 85 Assessment/Plan Assessment/Plan (1) Altered mental status Status: Acute Assessment & Plan: - Normal UDS, hypoglycemia, encephalopathy, Will get MRI 04/19: IV pulled out ON, replaced due to hypoglycemia, MRI pending, B12/Folate levels pending given h/o EtOH 04/20: IV replaced started on D5NS, MRI cancelled because patient refused moving, labs otherwise normal Qualifiers: Qualified Codes: R41.82 - Altered mental status, unspecified (2) Rhabdomyolysis Status: Acute Assessment & Plan: - IVFs, will trend Qualifiers: Qualified Codes: T79.6XXA - Traumatic ischemia of muscle, initial encounter (3) Acute kidney injury Status: Resolved Assessment & Plan: 04/19: improving, BUN elevated, continue IVFs SATISH PINTO MD Apr 20, 2021 18:19
[2021-04-20 19:31] VITALS: BP 141/75
[2021-04-21 08:16] VITALS: BP 145/73
[2021-04-21] MEDS: D5 LR IV SOLUTION 1,000 ML IV SCH (13:38)
[2021-04-21 16:00] VITALS: BP 144/75
--- NOTE | 2021-04-21 20:41 | Progress Note ---
Subjective Subjective/Events-last exam Patient not answering questions. Refusing to eat or drink. Review of Systems refusing to respond Objective Exam Last Set of Vital Signs Vital Signs Date Time Temp Pulse Resp B/P (MAP) Pulse Ox O2 Delivery O2 Flow Rate FiO2 04/21/21 16:00 37.0 87 20 144/75 (98) 98 Room Air 04/17/21 15:18 2.00 Capillary Refill : Less Than 3 Seconds I&O Intake and Output 04/21/21 00:00 Intake Total 850 ml Balance 850 ml Intake Oral 0 ml IV Total 850 ml # Voids 2 General: Other (awakes, follows with eyes ) Lungs: Clear to Auscultation, Normal Air Movement Heart: Regular Rate, No Murmurs Abdomen: Normal Bowel Sounds, Soft, No Tenderness Results/Procedures Lab Laboratory Tests 04/20/21 22:53: Glucometer 104 04/21/21 05:58: Glucometer 97 04/21/21 11:13: Glucometer 117H 04/21/21 17:07: Glucometer 108 Assessment/Plan Assessment/Plan (1) Altered mental status Status: Acute Assessment & Plan: - Normal UDS, hypoglycemia, encephalopathy, Will get MRI 04/19: IV pulled out ON, replaced due to hypoglycemia, MRI pending, B12/Folate levels pending given h/o EtOH 04/20: IV replaced started on D5NS, MRI cancelled because patient refused moving, labs otherwise normal 04/21: Blood sugars improved with IVFs, unable to contact family Qualifiers: Qualified Codes: R41.82 - Altered mental status, unspecified (2) Rhabdomyolysis Status: Acute Assessment & Plan: - IVFs, will trend Qualifiers: Qualified Codes: T79.6XXA - Traumatic ischemia of muscle, initial encounter (3) Acute kidney injury Status: Resolved Assessment & Plan: 04/19: improving, BUN elevated, continue IVFs SATISH PINTO MD Apr 21, 2021 20:41
[2021-04-22] VITALS: BP 142/71
[2021-04-22] MEDS: D5 LR IV SOLUTION 1,000 ML IV SCH ×2 (04:21→17:34)
[2021-04-22 08:07] VITALS: BP 127/68
[2021-04-22 08:24] LABS: BASOPHILS % (AUTO) 0 % (0-10); EOSINOPHILS # (AUTO) 0.2 10^3/uL (0.0-0.3); EOSINOPHILS % (AUTO) 2 % (0-10); HEMATOCRIT 36 % (40-54); LYMPHOCYTES # (AUTO) 1.7 10^3/uL (1.0-4.0); LYMPHOCYTES % (AUTO) 19 % (12-44); MEAN CORPUSCULAR HEMOGLOBIN 31 pg (25-34); MEAN CORPUSCULAR HGB CONC 36 g/dL (32-36); MEAN CORPUSCULAR VOLUME 85 fL (80-99); MEAN PLATELET VOLUME 10.5 fL (9.0-12.2); MONOCYTES # (AUTO) 0.8 10^3/uL (0.0-1.0); MONOCYTES % (AUTO) 9 % (0-12); NEUTROPHILS # (AUTO) 6.2 10^3/uL (1.8-7.8); NEUTROPHILS % (AUTO) 69 % (42-75); PLATELET COUNT 242 10^3/uL (130-400); WHITE BLOOD COUNT 9.1 10^3/uL (4.3-11.0)
[2021-04-22 08:46] LABS: CALCIUM 8.4 MG/DL (8.5-10.1); CREATININE SERUM 0.73 MG/DL (0.60-1.30); POTASSIUM 3.3 MMOL/L (3.6-5.0)
--- NOTE | 2021-04-22 13:19 | Progress Note - Hospitalist ---
Subjective HPI/CC On Admission Date Seen by Provider: Apr 22, 2021 Time Seen by Provider: 13:15 Subjective/Events-last exam Patient eyes are open does not orient to sound and does not answer any questions. Does not appear to be in acute distress Objective Exam Vital Signs Vital Signs Date Time Temp Pulse Resp B/P (MAP) Pulse Ox O2 Delivery O2 Flow Rate FiO2 04/22/21 08:07 36.6 91 18 127/68 (87) 97 Room Air 04/17/21 15:18 2.00 Capillary Refill : Less Than 3 Seconds General Appearance: No Apparent Distress, Chronically ill, Thin Respiratory: Chest Non Tender, Lungs Clear, Normal Breath Sounds, No Accessory Muscle Use, No Respiratory Distress Cardiovascular: Regular Rate, Rhythm, No Edema, No Gallop, No JVD, No Murmur, Normal Peripheral Pulses Gastrointestinal: Normal Bowel Sounds, No Organomegaly, No Pulsatile Mass, Non Tender, Soft Extremity: Other (Unremarkable except for severe sarcopenia) Results/Procedures Lab Laboratory Tests 04/22/21 08:10 Patient resulted labs reviewed. Assessment/Plan Assessment and Plan Assess & Plan/Chief Complaint (1) Altered mental status Status: Acute Assessment & Plan: - Normal UDS, hypoglycemia, encephalopathy, Will get MRI 04/19: IV pulled out ON, replaced due to hypoglycemia, MRI pending, B12/Folate levels pending given h/o EtOH 04/20: IV replaced started on D5NS, MRI cancelled because patient refused moving, labs otherwise normal 04/21: Blood sugars improved with IVFs, unable to contact family. 04/22: Altered mental status unchanged considering homeless status considerations include catatonia or an event that led to anoxic encephalopathy continue IV fluids patient is going to require long-term placement and his prognosis is extremely poor. Qualifiers: Qualified Codes: R41.82 - Altered mental status, unspecified (2) Rhabdomyolysis Status: Acute Assessment & Plan: - IVFs, will trend Qualifiers: Qualified Codes: T79.6XXA - Traumatic ischemia of muscle, initial encounter (3) Acute kidney injury Status: Resolved Assessment & Plan: 04/19: improving, BUN elevated, continue IVF ANDREW MEJÍA MD Apr 22, 2021 13:19
[2021-04-22 16:00] VITALS: BP 106/71
[2021-04-22 23:42] VITALS: BP 160/80
[2021-04-23] MEDS: D5 LR IV SOLUTION 1,000 ML IV SCH (06:00)
[2021-04-23 07:19] VITALS: BP 105/54
--- NOTE | 2021-04-23 10:38 | Progress Note - Hospitalist ---
Subjective HPI/CC On Admission Date Seen by Provider: Apr 23, 2021 Time Seen by Provider: 09:30 Subjective/Events-last exam Upon my arrival this morning the patient responded to his name with obvious paranoidal ideation reporting that I was part of the squad and requested that I leave the room followed by several grandiose declarations with restorationism undertones. Past medical record was reviewed and he has been on olanzapine in the past 5 mg daily. He had eaten breakfast without any nausea or vomiting his first meal since admission. Unable to get any other history secondary to paranoid ideation etc. Objective Exam Vital Signs Vital Signs Date Time Temp Pulse Resp B/P (MAP) Pulse Ox O2 Delivery O2 Flow Rate FiO2 04/23/21 09:00 Room Air 04/23/21 07:19 37.1 74 18 105/54 (71) 99 04/17/21 15:18 2.00 Capillary Refill : Less Than 3 Seconds General Appearance: Cachetic, Other (Patient too agitated for physical examination deferred.) Results/Procedures Lab Patient resulted labs reviewed. Assessment/Plan Assessment and Plan Assess & Plan/Chief Complaint (1) Altered mental status Status: Acute Assessment & Plan: - Normal UDS, hypoglycemia, encephalopathy, Will get MRI 04/19: IV pulled out ON, replaced due to hypoglycemia, MRI pending, B12/Folate levels pending given h/o EtOH 04/20: IV replaced started on D5NS, MRI cancelled because patient refused moving, labs otherwise normal 04/21: Blood sugars improved with IVFs, unable to contact family. 04/22: Altered mental status unchanged considering homeless status considerations include catatonia or an event that led to anoxic encephalopathy continue IV fluids patient is going to require long-term placement and his prognosis is extremely poor. 04/23: Patient clearly schizophrenic no longer catatonic but now agitated will initiate olanzapine 5 mg now and then 5 mg at at bedtime nightly will require mental health evaluation tomorrow and likely consideration for transfer to our [facility]. Qualifiers: Qualified Codes: R41.82 - Altered mental status, unspecified (2) Rhabdomyolysis resolved Status: Acute Assessment & Plan: - IVFs, will trend Qualifiers: Qualified Codes: T79.6XXA - Traumatic ischemia of muscle, initial encounter (3) Acute kidney injury Status: Resolved Assessment & Plan: 04/19: improving, BUN elevated, continue IVF ANDREW MEJÍA MD Apr 23, 2021 10:38
[2021-04-23] MEDS ORDERED: OLANZapine 5 MG (ZyPREXA) TAB PO ONE (10:45)
[2021-04-23] MEDS ORDERED: WATER (STERILE) FOR INJ 10 ML BTL INJ SCH ×2 (11:00→16:15)
[2021-04-23] MEDS ORDERED: ZIPRASIDONE 20 MG INJ (GEODON) VIAL IM ONE ×4 (11:00→21:00)
[2021-04-23] MEDS: WATER (STERILE) FOR INJ 10 ML BTL INJ SCH ×2 (11:16→16:16)
[2021-04-23 16:00] VITALS: BP 84/45
[2021-04-23 17:00] VITALS: BP 101/62
[2021-04-23] MEDS ORDERED: DIAZEPAM 5 MG (VALIUM) TABLET PO ONE (21:00)
[2021-04-23] MEDS ORDERED: OLANZapine 5 MG (ZyPREXA) TAB PO SCH (21:00)
[2021-04-23] MEDS: ZIPRASIDONE 20 MG (GEODON) CAP PO ONE (21:24)
[2021-04-24 00:22] VITALS: BP 102/58
[2021-04-24] MEDS: ZIPRASIDONE 20 MG (GEODON) CAP PO ONE (06:55)
[2021-04-24 08:00] VITALS: BP 143/86
--- NOTE | 2021-04-24 15:59 | Progress Note ---
Subjective Subjective/Events-last exam Seen at 1115 am. Sleeping deeply apparently, does not respond to voice and given episodes of agitation and near aggression, did not attempt physical stimuli to wake up. No respiratory distress, breathing quiet. Objective Exam Last Set of Vital Signs Vital Signs Date Time Temp Pulse Resp B/P (MAP) Pulse Ox O2 Delivery O2 Flow Rate FiO2 04/24/21 08:00 Room Air 04/24/21 08:00 37.2 88 20 143/86 (105) 95 Capillary Refill : Less Than 3 Seconds I&O Intake and Output 04/24/21 00:00 Intake Total 870 ml Balance 870 ml Intake Oral 870 ml # Voids 4 General: Other (somnolent, does not respond to voice) Assessment/Plan Assessment/Plan (1) Altered mental status Status: Acute Assessment & Plan: - Normal UDS, hypoglycemia, encephalopathy, Will get MRI 04/19: IV pulled out ON, replaced due to hypoglycemia, MRI pending, B12/Folate levels pending given h/o EtOH 04/20: IV replaced started on D5NS, MRI cancelled because patient refused moving, labs otherwise normal 04/21: Blood sugars improved with IVFs, unable to contact family 04/24- over the weekend, had episodes of marked agitation requiring antipsychotics, now somnolent again, concern for psychosis, may need Psych placement. Qualifiers: Qualified Codes: R41.82 - Altered mental status, unspecified (2) Rhabdomyolysis Status: Resolved Assessment & Plan: - IVFs, will trend Qualifiers: Qualified Codes: T79.6XXA - Traumatic ischemia of muscle, initial encounter (3) Acute kidney injury Status: Resolved Assessment & Plan: 04/19: improving, BUN elevated, continue IVFs (4) Bipolar disorder Status: Chronic Assessment & Plan: Had prescriptions for lithium and haldol sent in August 2020, but apparently has not been on medication for some time. (5) Polysubstance abuse Status: Chronic Assessment & Plan: History of substance abuse, UDS negative on admission. (6) DVT prophylaxis Status: Acute Assessment & Plan: Enoxaparin TOM JULIEN MD Apr 24, 2021 15:59
[2021-04-24 16:15] VITALS: BP 147/83
[2021-04-24] MEDS: ENOXAPARIN 30 MG/0.3 ML (LOVENOX) SYR SC SCH (22:20)
[2021-04-25 00:12] VITALS: BP 124/93
[2021-04-25 06:43] LABS: POTASSIUM 3.2 MMOL/L (3.6-5.0)
[2021-04-25 06:44] LABS: CALCIUM 7.9 MG/DL (8.5-10.1)
[2021-04-25 06:49] LABS: CREATININE SERUM 0.75 MG/DL (0.60-1.30)
[2021-04-25 07:25] VITALS: BP 137/84
[2021-04-25] MEDS ORDERED: KCL 20 MEQ TAB (K-DUR) PO NR (11:00)
[2021-04-25 16:00] VITALS: BP 120/74
--- NOTE | 2021-04-25 20:50 | Progress Note ---
Subjective Subjective/Events-last exam Pt seen about 1155 am. He is sitting up in bed, appears alert, but does not respond or make eye contact. However, when I asked if I could listen to his heart, he started to lay back, but as I approached with stethescope he pulled away and when I asked again, he shook his head no. Objective Exam Last Set of Vital Signs Vital Signs Date Time Temp Pulse Resp B/P (MAP) Pulse Ox O2 Delivery O2 Flow Rate FiO2 04/25/21 16:00 36.7 102 18 120/74 (89) 98 Room Air Capillary Refill : Less Than 3 Seconds I&O Intake and Output 04/25/21 00:00 Intake Total 400 ml Balance 400 ml Intake Oral 400 ml # Voids 5 # Bowel Movements 1 General: Alert Psych/Mental Status: Other (alert and shakes head to some questions, but does not speak or follow instructions) Results/Procedures Lab Laboratory Tests 04/25/21 05:19: Sodium Level 138, Potassium Level 3.2L, Chloride Level 104, Carbon Dioxide Level 24, Anion Gap 10, Blood Urea Nitrogen 11, Creatinine 0.75, Estimat Glomerular Filtration Rate 104, BUN/Creatinine Ratio 15, Glucose Level 90, Calcium Level 7.9L Assessment/Plan Assessment/Plan (1) Altered mental status Status: Acute Assessment & Plan: - Normal UDS, hypoglycemia, encephalopathy, Will get MRI 04/19: IV pulled out ON, replaced due to hypoglycemia, MRI pending, B12/Folate levels pending given h/o EtOH 04/20: IV replaced started on D5NS, MRI cancelled because patient refused moving, labs otherwise normal 04/21: Blood sugars improved with IVFs, unable to contact family 04/24- over the weekend, had episodes of marked agitation requiring antipsychotics, now somnolent again, concern for psychosis, may need Psych placement. 04/25- concern for catatonia, will trial lorazepam challenge Qualifiers: Qualified Codes: R41.82 - Altered mental status, unspecified (2) Rhabdomyolysis Status: Resolved Assessment & Plan: - IVFs, will trend Qualifiers: Qualified Codes: T79.6XXA - Traumatic ischemia of muscle, initial encounter (3) Acute kidney injury Status: Resolved Assessment & Plan: 04/19: improving, BUN elevated, continue IVFs (4) Bipolar disorder Status: Chronic Assessment & Plan: Had prescriptions for lithium and haldol sent in August 2020, but apparently has not been on medication for some time. (5) Polysubstance abuse Status: Chronic Assessment & Plan: History of substance abuse, UDS negative on admission. (6) DVT prophylaxis Status: Acute Assessment & Plan: Enoxaparin TOM JULIEN MD Apr 25, 2021 20:50
[2021-04-25 23:25] VITALS: BP 111/71
[2021-04-26] MEDS: ENOXAPARIN 30 MG/0.3 ML (LOVENOX) SYR SC SCH ×2 (00:17→20:39)
[2021-04-26 05:55] LABS: HEMATOCRIT 36 % (40-54); HEMOGLOBIN 12.6 g/dL (13.3-17.7); MEAN CORPUSCULAR HEMOGLOBIN 31 pg (25-34); MEAN CORPUSCULAR HGB CONC 35 g/dL (32-36); MEAN CORPUSCULAR VOLUME 88 fL (80-99); MEAN PLATELET VOLUME 10.9 fL (9.0-12.2); PLATELET COUNT 226 10^3/uL (130-400); WHITE BLOOD COUNT 5.6 10^3/uL (4.3-11.0)
[2021-04-26 06:07] LABS: POTASSIUM 3.2 MMOL/L (3.6-5.0)
[2021-04-26 06:08] LABS: CALCIUM 8.4 MG/DL (8.5-10.1)
[2021-04-26 06:12] LABS: CREATININE SERUM 0.88 MG/DL (0.60-1.30)
[2021-04-26] MEDS ORDERED: LORazepam INJ 2 MG/ML (ATIVAN) VIAL IVP PRN (07:00)
[2021-04-26] MEDS ORDERED: KCL 20 MEQ TAB (K-DUR) PO ONE (07:00)
[2021-04-26 07:39] VITALS: BP 95/45
--- NOTE | 2021-04-26 13:40 | Progress Note ---
Subjective Subjective/Events-last exam This morning became alert and ate breakfast and has been speaking. He still doesn't say much, but when asked how he is feeling stated not well, when asked why not, said he has things he needs to get worked out. When I asked if I could listen to his heart and lungs he said no. Objective Exam Last Set of Vital Signs Vital Signs Date Time Temp Pulse Resp B/P (MAP) Pulse Ox O2 Delivery O2 Flow Rate FiO2 04/26/21 08:00 Room Air 04/26/21 07:39 37.2 96 20 95/45 (62) 98 Capillary Refill : Less Than 3 Seconds I&O Intake and Output 04/26/21 00:00 Intake Total 690 ml Balance 690 ml Intake Oral 690 ml # Voids 6 General: Alert Psych/Mental Status: Other (flat affect, short answers, non-cooperative with exam) Results/Procedures Lab Laboratory Tests 04/26/21 05:30: White Blood Count 5.6, Red Blood Count 4.10L, Hemoglobin 12.6L, Hematocrit 36L, Mean Corpuscular Volume 88, Mean Corpuscular Hemoglobin 31, Mean Corpuscular He moglobin Concent 35, Red Cell Distribution Width 13.0, Platelet Count 226, Mean Platelet Volume 10.9, Sodium Level 141, Potassium Level 3.2L, Chloride Level 103, Carbon Dioxide Level 26, Anion Gap 12, Blood Urea Nitrogen 13, Creatinine 0.88, Estimat Glomerular Filtration Rate 86, BUN/Creatinine Ratio 15, Glucose Level 110H, Calcium Level 8.4L Assessment/Plan Assessment/Plan (1) Altered mental status Status: Acute Assessment & Plan: - Normal UDS, hypoglycemia, encephalopathy, Will get MRI 04/19: IV pulled out ON, replaced due to hypoglycemia, MRI pending, B12/Folate levels pending given h/o EtOH 04/20: IV replaced started on D5NS, MRI cancelled because patient refused moving, labs otherwise normal 04/21: Blood sugars improved with IVFs, unable to contact family 04/24- over the weekend, had episodes of marked agitation requiring antipsychotics, now somnolent again, concern for psychosis, may need Psych placement. 04/25- concern for catatonia, will trial lorazepam challenge 04/26- was going to try lorazepam challenge this am, but started responding prior to dosing, will have mental health re-eval Qualifiers: Qualified Codes: R41.82 - Altered mental status, unspecified (2) Rhabdomyolysis Status: Resolved Assessment & Plan: - IVFs, will trend Qualifiers: Qualified Codes: T79.6XXA - Traumatic ischemia of muscle, initial encounter (3) Acute kidney injury Status: Resolved Assessment & Plan: 04/19: improving, BUN elevated, continue IVFs (4) Bipolar disorder Status: Chronic Assessment & Plan: Had prescriptions for lithium and haldol sent in August 2020, but apparently has not been on medication for some time. (5) Polysubstance abuse Status: Chronic Assessment & Plan: History of substance abuse, UDS negative on admission. (6) DVT prophylaxis Status: Acute Assessment & Plan: Enoxaparin TOM JULIEN MD Apr 26, 2021 13:40
[2021-04-26 16:03] VITALS: BP 130/60
[2021-04-26 21:00] VITALS: BP 136/71
[2021-04-27 00:40] VITALS: BP 138/82
[2021-04-27 08:00] VITALS: BP 112/67
[2021-04-27 10:15] LABS: POTASSIUM 3.2 MMOL/L (3.6-5.0)
[2021-04-27 10:16] LABS: CALCIUM 8.1 MG/DL (8.5-10.1)
[2021-04-27 10:21] LABS: CREATININE SERUM 0.71 MG/DL (0.60-1.30)
[2021-04-27 16:00] VITALS: BP 142/73
--- NOTE | 2021-04-27 21:20 | Discharge Summary ---
Discharge Summary Hospital Course Problems/Diagnosis: (1) Altered mental status Status: Acute Assessment & Plan: - Normal UDS, hypoglycemia, encephalopathy, Will get MRI 04/19: IV pulled out ON, replaced due to hypoglycemia, MRI pending, B12/Folate levels pending given h/o EtOH 04/20: IV replaced started on D5NS, MRI cancelled because patient refused moving, labs otherwise normal 04/21: Blood sugars improved with IVFs, unable to contact family 04/24- over the weekend, had episodes of marked agitation requiring antipsychotics, now somnolent again, concern for psychosis, may need Psych placement. 04/25- concern for catatonia, will trial lorazepam challenge 04/26- was going to try lorazepam challenge this am, but started responding prior to dosing, will have mental health re-eval 04/27- intermittently patient was talking and eating, etc yesterday, but after initially talking to mental health when he arrived, patient then stopped talking and did not respond again. He later did say he wanted to talk to Param Alvarez from [facility], but again when he came, he did not talk to him. Today, he is not answering questions or opening his eyes, but has occasionally made irritated appearing faces when people do exams, etc. Discussed with Param Alvarez, he cannot screen for involuntary Psych placement, and there is some concern for malingering which would make acceptance at Psych hospital less likely as well. Given all this and the intermittent clear and normal status, and medical conditions resolved, there is no more that is expected to beneficial in this a cute hospital stay, so patient was notified he would be discharged today. Qualifiers: Qualified Codes: R41.82 - Altered mental status, unspecified (2) Rhabdomyolysis Status: Resolved Resolution Date/Time: 04/24/21 @ 21:37 Assessment & Plan: - IVFs, will trend Qualifiers: Qualified Codes: T79.6XXA - Traumatic ischemia of muscle, initial encounter (3) Acute kidney injury Status: Resolved Resolution Date/Time: 04/20/21 @ 18:24 Assessment & Plan: 04/19: improving, BUN elevated, continue IVFs (4) Bipolar disorder Status: Chronic Assessment & Plan: Had prescriptions for lithium and haldol sent in August 2020, but apparently has not been on medication for some time. (5) Polysubstance abuse Status: Chronic Assessment & Plan: History of substance abuse, UDS negative on admission. Hospital Course Date of Admission: Apr 20, 2021 at 13:49 Admission Diagnosis : See problem list Family Physician/Provider: [place] Date of Discharge: 04/27/21 Discharge Diagnosis: See problem list Hospital Course: See problem list. Labs and Pending Lab Test: Laboratory Tests 04/27/21 00:48: Glucometer 96 04/27/21 09:55: Sodium Level 140, Potassium Level 3.2L, Chloride Level 107, Carbon Dioxide Level 26, Anion Gap 7, Blood Urea Nitrogen 10, Creatinine 0.71, Estimat Glomerular Filtration Rate 111, BUN/Creatinine Ratio 14, Glucose Level 97, Calcium Level 8.1L Home Meds Active Active Prescriptions or Reported Medications Unobtainable Assessment/Pt DC Instructions Follow up with primary within one week of discharge. Discharge Diet: No Restrictions Activity as Tolerated: Yes Discharge Physical Examination Allergies: Coded Allergies: No Known Drug Allergies (Unverified , 01/04/19) General Appearance: No Apparent Distress Respiratory: Lungs Clear, Normal Breath Sounds Cardiovascular: Regular Rate, Rhythm, No Murmur Gastrointestinal: Normal Bowel Sounds, Non Tender Skin: Normal Color, Warm/Dry Neurologic/Psychiatric: Other (laying with eyes closed, breathing easily, does not answer any questions, has muscle tone in all extremities) TOM JULIEN MD Apr 27, 2021 21:20
[2021-04-27] MEDS: ENOXAPARIN 30 MG/0.3 ML (LOVENOX) SYR SC SCH (21:58)
[2021-04-27 23:59] VITALS: BP 128/77
[2021-04-28 08:01] VITALS: BP 128/77
--- NOTE | 2021-05-01 06:01 | Physician Query Clarification ---
PQ-Further Specificity Admission/Discharge Admission Date: Apr 20, 2021 at 13:49 Discharge Date: Apr 28, 2021 at 12:53 SATISH Benito MD The medical record reflects the following clinical scenario: History/Risk Factors:65 y/o male presents with AMS, ARAMIS and rhabdmyolysis, encephalopathy was documented in the medical record. Hand P, 04/18: AMS normal UDS, hypoglycemia, encephalopathy, rhabdomyolysis and ARAMIS. Progress notes, 04/20: Normal UDS, hypoglycemia, encephalopathy, rhabdomyolysis and ARAMIS. Discharge summary, 04/21: Normal UDS, hypoglycemia, encephalopathy, rhabdomyolysis and ARAMIS. Clinical Findings: Glucose-87, 78 L, Creatinine- 2/05 H. Treatment: IV fluids, blood sugars improved with IV fluids. Question: Can you further specify encephalopathy per the clinical indicators above? Please document a response in the Progress Notes or Discharge Summary. 1. Metabolic encephalopathy. 2. Encephalopathy unspecified. 3. Other, with explanation of the clinical findings. 4. Clinically undetermined, no explanation for the clinical findings. PHYSICIAN RESPONSE Can you specify per above: Clinically undetermined Please remember a lack of response to the above will prompt a phone page by [facility] staff. In responding to this query, please exercise your independent professional judgment. The purpose of this communication is to more accurately reflect the complexity of your patient�s condition. The fact that a question is asked does not imply that any particular answer is desired or expected. Thank you for your timely response to this clarification. Requestor�s name: [ ] Phone # [ ] THIS PHYSICIAN QUERY FORM IS A PERMANENT PART OF THE MEDICAL RECORD JEANNIE SARMIENTO May 01, 2021 06:01 SATISH PINTO MD May 08, 2021 08:41
== END 2021-04-28 12:53 | disposition home or self-care (01) | DRG 683 ==
LOC: EDUNIT# 15:17 → ER 15:18 → CSD 19:08 → UNDOADMOB 19:08 → CSD 22:41 → 4TH 04-18 17:25 → OBSVTOIN 04-20 13:49 → INTOOBSV 04-20 13:49 → UNDODISIN 04-28 12:53
PROVIDERS: ADMIT Family Medicine; ATTEND Family Medicine
DX: N17.9 Acute kidney failure, unspecified (principal); G93.40 Encephalopathy, unspecified; M62.82 Rhabdomyolysis; E16.2 Hypoglycemia, unspecified; F31.9 Bipolar disorder, unspecified; F19.10 Other psychoactive substance abuse, uncomplicated; F41.9 Anxiety disorder, unspecified; N40.0 Benign prostatic hyperplasia without lower urinary tract symptoms; F20.9 Schizophrenia, unspecified; Z90.79 Acquired absence of other genital organ(s); Z87.891 Personal history of nicotine dependence; Z59.01 Sheltered homelessness
CPT/HCPCS: 36415; 70450; 72125; 80048; 80053; 80178; 80306; 80320; 80329; 81000; 82550; 82607; 82746; 82947; 83735; 84439; 84443; 85025; 85027; 93005; G0378